=== PATIENT | male | born 1955 | race Caucasian/White ===

== ENCOUNTER 2019-05-15 09:26 | Outpatient (RCR) | payer BC, SELFPAY ==
[2019-05-15 09:49] LABS: Prothrombin Time 21.2 Seconds (9.64-11.0)
== END 2019-08-13 23:59 | disposition home or self-care (01) ==
LOC: CHSLAB 09:26
PROVIDERS: Visit Provider Family Medicine
DX: Z79.01 Long term (current) use of anticoagulants (principal)
CPT/HCPCS: 36415; 85610

== ENCOUNTER 2021-12-21 16:03 | Observation (INO) | payer MEDICARE, SELFPAY ==
--- NOTE | ~2021-12-21 | XR_ITS ---
EXAM: XR tibia fibula LT 2V DATE: 12/21/2021 18:34 HISTORY: LE ulcerations swelling. hx aneurysm to lt leg. . COMPARISON: 01/11/2018. FINDINGS: Medial vascular clips. Decreased Mineralization. No fracture or dislocation. No lytic or b lastic lesion. Joint spaces are maintained. No erosion or periosteal change. Diffuse subcutaneous masoud ma. Anterolateral soft tissue ulceration over the distal tibia/fibula. IMPRESSION: No acute osseous finding in the left tibia or fibula. Reviewed, dictated and finalized at location K.
--- NOTE | ~2021-12-21 | US_ITS ---
EXAMINATION: US arterial duplex LE DATE: 12/22/2021 15:28 INDICATION: Peripheral arterial disease. TECHNIQUE: Multiple grayscale and Doppler ultrasound images of the lower limb arteries were obtained. COMPARISON: CTA 10/26/2017 FINDINGS: Peak systolic velocity is 66 cm/s in right common femoral artery and 46 cm/s in profunda fe jody artery. There is total occlusion of right superficial femoral artery with reconstitution. Peak systolic velocity is 48 cm/s in popliteal artery, 46 cm/s in posterior tibial artery, and 40 cm/s in peroneal artery. There is no visible flow in dorsalis pedis. Peak systolic velocity is 80 cm/s in left common femoral artery, 84 cm/s in profunda femoris artery, 65 cm/s in superficial femoral artery, 59 cm/s in the bypass graft, and 69 cm/s in popliteal artery. There is flow in left posterior tibial artery and peroneal artery, but velocities are not accurately measured with angle correction. IMPRESSION: 1. Total occlusion of right superficial femoral artery with reconstitution. 2. Total occlusion of right dorsalis pedis. 3. Patent bypass graft in left lower limb. 4. Consider CTA given the limitations of ultrasound and the surgical change. Reviewed, dictated and finalized at location A.
--- NOTE | ~2021-12-21 | US_ITS ---
EXAMINATION: US venous doppler [facility] DATE: 12/22/2021 10:48 INDICATION: Lower limb edema. TECHNIQUE: Grayscale ultrasound images without and with compression and Doppler ultrasound images of the bilateral lower extremity veins were obtained. COMPARISON: Ultrasound 07/26/2015 FINDINGS: The visualized portions of right common femoral vein, profunda (deep) femoral vein, popliteal vein, p eroneal veins, posterior tibial veins, and greater saphenous vein outflow are patent. There is nonocc lusive thrombus in the right femoral vein. The visualized portions of left common femoral vein, profunda femoral vein, popliteal vein, peroneal veins, and posterior tibial veins are patent. There is nonocclusive thrombus in the left femoral vein . IMPRESSION: 1. Deep vein thrombosis involving the bilateral femoral veins. Reviewed, dictated and finalized at location A.
--- NOTE | ~2021-12-21 | CT_ITS ---
EXAMINATION: CTA abd aorta runoff DATE: 12/23/2021 13:22 INDICATION: Peripheral arterial disease. TECHNIQUE: Computed tomographic angiography (CTA) of the abdominal, pelvis, and both lower extremitie s was performed with 150 mL Omnipaque-350 intravenous contrast. Automated exposure control and iterat sathya reconstruction technique were employed. The dose-length product was 1809.23 mGy-cm. Maximum inten sity projection 3D-reconstructions of the arteries were created by the technologist on a separate wor kstation. COMPARISON: CTA 10/26/2017 FINDINGS: ABDOMINAL AORTA AND ITS BRANCHES: There is mild aortic atherosclerosis. No aortic aneurysm. There is no significant stenosis of celiac axis, superior mesenteric artery, the renal arteries, or inferior mesenteric artery. PELVIC VASCULATURE: There is no significant stenosis of the common iliac arteries, external iliac arteries, or internal i liac arteries. RIGHT LOWER EXTREMITY VASCULATURE: There is no significant stenosis of right common femoral artery. There is total occlusion of right chisholm perficial femoral artery at its origin with reconstitution of flow in above-knee popliteal artery. Th ere is no significant stenosis of the profunda femoris. 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 There is total occlusion of anterior tibial leia ry proximally with distal reconstitution. There is no significant stenosis of tibioperoneal trunk, po sterior tibial artery, or peroneal artery. LEFT LOWER EXTREMITY VASCULATURE: There is no significant stenosis of left common femoral artery. There is a patent graft from common f emoral artery to profunda femoral artery. There is total occlusion of left superficial femoral artery with reconstitution of flow in the below-knee popliteal artery. There is no significant stenosis of tibioperoneal trunk, anterior tibial artery, or the peroneal artery. There is total occlusion of prox imal posterior tibial artery with reconstitution of flow beyond the ankle. ADDITIONAL FINDINGS: The visualized portions of the lung bases demonstrate mild atelectasis. No pleural effusion. The hear t size is normal. No pericardial effusion. The liver is normal. There is a gallstone in the gallbladd er, which is normal in size. The spleen, pancreas, and adrenal glands are normal. There are cysts in the kidneys measuring up to 12 mm on the left. There is an 11 mm stone in left kidney. There is a lef t inguinal hernia containing nonobstructed sigmoid colon. There are no dilated loops of bowel. The ap pendix is normal. The prostate is mildly enlarged. There is a filter in the infrarenal inferior vena cava. There are no pathologically enlarged lymph nodes. There is no free intraperitoneal fluid. There is severe lumbar spondylosis. IMPRESSION: 1. Total occlusion of right superficial femoral artery with reconstitution of flow in above-knee pop liteal artery. 2. Total occlusion of right anterior tibial artery proximally with distal reconstitution. 3. Total occlusion of left superficial femoral artery with reconstitution of flow in below-knee popli teal artery. 4. Total occlusion of left posterior tibial artery proximally with reconstitution of flow beyond the ankle. 5. Left inguinal hernia containing nonobstructed sigmoid colon. Reviewed, dictated and finalized at location A. IMPRESSION: 1. Total occlusion of right superficial femoral artery with reconstitution of flow in above-knee popliteal artery. 2. Total occlusion of right anterior tibial artery proximally with distal recon stitution. 3. Total occlusion of left superficial femoral artery with reconstitution of fl ow in below-knee popliteal artery. 4. Total occlusion of left posterior tibial
[2021-12-21 16:12] VITALS: PULSE 88; RESP 16; TEMP 37; O2SAT 95
[2021-12-21 18:04] VITALS: BP 143/96; PULSE 88; RESP 18; O2SAT 99
[2021-12-21 19:31] LABS: Basophils Percent Auto 0.6 % (0.2-1.2); Eosinophils Percent Auto 0.3 % (0-4.4); Hematocrit 46.6 % (42.0-52.0); Hemoglobin 15.3 g/dL (14.0-18.0); Immature Granulocyte Absolute 0.03 K/mm3 (0.00-0.031); Immature Granulocyte Percent A 0.5 % (0-0.5); Lymphocytes Absolute Auto 1.11 K/mm3 (0.9-3.2); Lymphocytes Percent Auto 17.5 % (18.3-44.2); Mean Corpuscular HGB Conc 32.8 g/dl (32-36); Mean Corpuscular Hemoglobin 31.5 pg (26-34); Mean Corpuscular Volume 96.1 fl (80-100); Mean Platelet Volume 8.7 fl (7.4-10.4); Monocytes Absolute Auto 0.7 K/mm3 (0.1-0.6); Monocytes Percent Auto 11.1 % (2.6-8.5); Neutrophils Absolute Auto 4.4 K/mm3 (1.3-6.7); Platelet Count Result 263 k/mm3 (150-375); Red Blood Count 4.85 M/mm3 (4.6-6.20); Red Cell Distribution Width 13.8 % (11.5-14.5); White Blood Count 6.3 K/mm3 (4.5-10.0)
[2021-12-21 19:45] LABS: INR 1.1; Prothrombin Time 13.6 Seconds (11.1-14.7)
[2021-12-21 19:46] LABS: Partial Thromboplastin Time 26.8 SECONDS (22.3-36.8)
[2021-12-21 19:49] LABS: Alanine Aminotransferase 16 U/L (6-50); Albumin Level 4.9 g/dL (3.5-5.1); Alkaline Phosphatase 71 U/L (38-126); Anion Gap 14 mmol/L (8-16); Aspartate Amino Transferase 34 U/L (17-59); Bilirubin,Total 1.6 mg/dL (0.2-1.3); Blood Urea Nitrogen 19 mg/dL (9-20); Calcium 10.1 mg/dL (8.4-10.2); Carbon Dioxide 23 mmol/L (22-30); Chloride 98 mmol/L (98-107); Estimated CRCL calculation 75 ml/min; Estimated Glomerular Filt Rate > 60; Glucose 90 mg/dL (65-110); Potassium 3.8 mmol/L (3.4-5.0); Sodium 135 mmol/L (137-145)
[2021-12-21 19:53] LABS: CRP 0.8 mg/dL (<1.0)
--- NOTE | 2021-12-21 20:00 | ED.GENADULT ---
HPI - General Adult General Chief complaint: Unspecified Stated complaint: mult c/o Time Seen by Provider: 12/21/21 17:57 History of Present Illness HPI narrative: This is a 66-year-old male complaint coming to the ED with A chief complaint of left leg swelling and weakness. Patient has a history of a DVT and factor 5 Leiden. He has not taken his warfarin and about a week and half. Patient has noticed increased swelling of his left calf. He is no longer able to ambulate due to weakness in the leg. Because of this he has not been able to get out of bed and has urinated on himself. His family became concerned because he has not been himself. The patient himself notes some weakness of the leg but has no other complaints at this time. In the triage note states the patient had some slurred speech yesterday. However family states his speech is not slurred at this time. Related Data Allergies Allergy/AdvReac Type Severity Reaction Status Date / Time No Known Allergies Allergy Verified 12/21/21 16:23 Review of Systems Review of Systems: CONSTITUTIONAL: Denies night sweats. EYES: No eye pain ENT: Denies rhinorrhea CARDIOVASCULAR: Denies palpitations RESPIRATORY: Denies hemoptysis GASTROINTESTINAL: Denies hematemesis GENITOURINARY: Denies hematuria. SKIN: Denies rash MUSCULOSKELETAL: Denies myalgia. NEUROLOGIC: Denies weakness. 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 Head atraumatic. EYES: PERRLA/EOMI, NOSE: Normal no drainage NECK: Supple, Trachea midline RESPIRATORY: CTAB, No increased work of breathing. CARDIOVASCULAR: S1S2 appreciated ABDOMINAL: Soft, nontender, nondistended, MUSCULOSKELETAl: Left lower extremity is significantly swollen, there is a large surgical scar over the anterior medial portion of the lower extremity. Patient is able to wiggle his toes and sensation light touch is intact. Cap refills less than 2 seconds. NEURO: Alert. Cranial nerves 2-12 grossly intact. Sensation light touch, motor function cerebellar function intact for 4 extremities. Gait exam was normal. SKIN:: Multiple ulcerations over the left lower extremity with granulation tissue. There is no surrounding erythema or edema or fluctuance. PSYCHIATRIC: Normal affect Course Vital Signs Vital signs: Vital Signs Temperature 98.6 F 12/21/21 16:12 Pulse Rate 88 12/21/21 16:12 Respiratory Rate 16 12/21/21 16:12 Pulse Oximetry 95 12/21/21 16:12 Oxygen Delivery Room Air 12/21/21 16:12 Temperature 98.6 F 12/21/21 16:12 Pulse Rate 86 12/21/21 20:16 Respiratory Rate 18 12/21/21 20:16 Blood Pressure 138/80 12/21/21 20:16 Pulse Oximetry 99 12/21/21 20:16 Oxygen Delivery Room Air 12/21/21 16:12 Medical Decision Making [facility] Narrative Medical decision making narrative: This is a 66-year-old male presenting to the ED with increased swelling and weakness in his left lower extremity. Patient has not be
[2021-12-21 20:16] VITALS: BP 138/80; PULSE 86; RESP 18; O2SAT 99
[2021-12-21 21:32] LABS: Appearance Urine Clear (Clear); Bilirubin Urine 1+ (Negative); Blood Urine Negative (Negative); Color Urine Yellow (Yellow); Glucose Urine UA Negative (Negative); Ketones Urine 1+ mg/dL (Negative); Leukocyte Esterase Ur Negative LEU/UL (Negative); Nitrate Urine Negative (Negative); Protein Urine 1+ mg/dL (Negative); Specific Grav Ur 1.025 (1.001-1.035); Urobilinogen Urine 0.2 mg/dL (<2.0)
--- NOTE | 2021-12-21 21:35 | ECG_ITS ---
Measurements Intervals [place] Rate: 77 P: 73 DE: 139 QRS: 13 QRSD: 97 T: 29 QT: 365 QTc: 413 Interpretive Statements PROBABLE SINUS RHYTHM BASELINE ARTIFACT NONSPECIFIC T-WAVE FLATTENING NO PREVIOUS ECG AVAILABLE FOR COMPARISON Electronically Signed On 12-22-2021 18:14:00 CDT by Sharlene Still M.D.
[2021-12-21 21:39] LABS: RBC Urine 0-2 /hpf (0-2); Squamous Epithelial Cell Urine Rare /hpf (Few); WBC Urine 0-3 /hpf
[2021-12-21 21:40] LABS: Add Urine Microscopic? YES
[2021-12-21] MEDS: MUPIROCIN 2% OINT 22 GM TUBE 1 APPLIC TOPICAL (21:51)
[2021-12-21] MEDS: ENOXAPARIN 120 MG/0.8 ML SYRINGE 110 MG SUB-Q (22:24)
--- NOTE | 2021-12-21 23:10 | PM.IMHP ---
H&P: HPI History of Present Illness Date/Time: 12/21/21 23:10 Chief Complaint: left lower extremity swelling Narrative: This is a 66-year-old male with past medical history significant for factor Leiden deficiency, history of DVT, peripheral vascular disease, hypertension, dyslipidemia. Patient presents to the emergency room due to left lower extremity swelling that started 2 days ago tenderness as well and difficulty bearing weight on it, patient had stopped taking his Coumadin. Preliminary workup was significant for acute deep vein thrombosis found. patient denies any hemoptysis, chest pain, shortness of breath, cough, fevers, chills, rigors. patient is been admitted for further evaluation management and treatment. Review of Systems Review of Systems: Left lower extremity swelling Constitutional: Constitutional: Denies chills, Denies fever(s), Denies malaise, Denies night sweats and Denies weakness Eyes: Eyes: Denies change in vision ENT: Denies dysphagia, Denies vertigo, Denies dizziness and Denies odynophagia Cardiovascular: Cardiovascular: Denies chest pain, Denies syncope, Denies irregular heart rhythm, Denies lightheadedness, Denies palpitations and Denies dyspnea on exertion Respiratory: Respiratory: Denies cough, Denies hemoptysis, Denies pain on inspiration, Denies pain with cough and Denies dyspnea Gastrointestinal: Gastrointestinal: Denies abdominal pain, Denies dyspepsia, Denies heartburn, Denies nausea and Denies vomiting Genitourinary: Genitourinary: Denies dysuria Musculoskeletal: Musculoskeletal: Denies back pain, Denies myalgias and Reports other ( left lower extremity swelling) Integumentary/Breasts: Skin/Breast: Denies rash Neurologic: Denies vertigo, Denies dizziness, Denies syncope, Denies focal weakness and Denies Sensory deficit (Neuro) Psychiatric: Psychiatric: Reports no additional psychiatric complaints and Reports as per HPI Endocrine: Endocrine: Denies cold intolerance, Denies fatigue, Denies flushing, Denies heat intolerance, Denies polyphagia and Denies polydipsia Hematologic/Lymphatic: Hematologic/Lymphatic: Reports no additional hematologic/lymphatic complaints and Reports as per HPI Allergic/Immunologic: Allergic/Immunologic: Reports no additional allergic/immunologic complaints and Reports as per HPI [facility] Past Medical History Medical History (Updated 12/21/21 @ 22:14 by Adam Henriquez MD) Aneurysm of left leg Blood clot in vein BMI 33.0-33.9,adult 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 Peripheral vascular disease Surgical History Surgical History Hx of vascular surgery Family History Family History Sibling COVID Sibling Breast cancer Social History Social History Smoking packs per day: 0.5 Smoking cigarettes per day: 10.0 Years smoked: 30 Smoking pack-years: 15.00 Tobacco type: cigarettes Alcohol intake: current Alcohol use details: beer Gender identity (if verbalized by the patient): Male Sexual Orientation (if Verbalized by the Patient): Straight or Heterosexual Spiritual care concerns: No Agree to blood products: Yes Meds Home Medications and Allergies Home Medications Medication Instructions Recorded Confirmed Type losartan 50 mg-hydrochlorothiazide 1 tablet PO DAILY #90 tabs 06/08/21 07/12/21 Rx 12.5 mg tablet atorvastatin 20 mg tablet 20 mg PO HS 12/22/21 12/22/21 History Allergies Allergy/AdvReac Type Severity Reaction Status Date / Time No Known Allergies Allergy Verified 12/21/21 16:23 Vital Signs Vital Signs - 24 hr 12/21/21 16:12 12/21/21 18:04 12/21/21 20:16 Temperature 98.6 F Pulse Rate 88 88 86 Respiratory Rate 16 18 18 Blood Pressure 143/96 H 138/80 Pulse Oximetry 95 99 99 Oxygen Delivery Room Air
[2021-12-21 23:38] VITALS: BP 152/102; PULSE 80; RESP 20; O2SAT 95
[2021-12-21 23:50] VITALS: BP 130/85; PULSE 86; RESP 18; TEMP 37; O2SAT 98; BMI 30.8
--- NOTE | 2021-12-22 | ECHO_ITS ---
Patient Info Name: Ramy Dailey Age: 66 years : 1955 Gender: Male Ht: 73 in Wt: 233 lbs BSA: 2.36 m2 HR: 57 bpm BP: 130 / 85 mmHg Heart Rhythm: Sinus Rhythm Technical Quality: Poor Exam Date: 12/22/2021 11:34 AM Exam Location: [facility] Pulmonary Exam Room: 302 Patient Status: Outpatient Admit Date: 12/21/2021 Staff Ordering Physician: Barbie Calzada MD Payroll Professional: Jaimee Cardozo RDCS Attending Provider: Barbie Calzada MD Referring Physician: Zheng PAYTON; Exam Type: CA echo dop color flow w con Study Info Indications - DVT Complete two-dimensional, color flow and Doppler transthoracic echocardiogram is performed with contrast to opacify the left ventricle and to improve the deliniation of the left ventricle endocardial borders. Contrast/Agitated Saline Contrast/Ag. Saline: Definity Amount: --- ml Administered By: Jaimee Cardozo [facility] Existing IV Access: Yes Reason for Poor Study: patient body habitus Summary 1. Grossly normal left ventricular size and thickness with good contractility of all segments. Ejection fraction is 55-60%. Grade 1 diastolic dysfunction is present. 2. Left atrial chamber dimension is mildly enlarged. 3. No significant valve disease. 4. Normal sinus rhythm. 5. Technically difficult study; definity echo contrast used. Left Ventricle Left ventricular chamber dimension is normal. Left ventricular systolic function is normal, estimated at 55-60%. There is no increased left ventricular wall thickness. Left ventricular septal wall motion is normal. The left ventricular diastolic function is grade I diastolic dysfunction. Right Ventricle Right ventricular chamber dimension is normal. Right ventricular systolic function is normal. Left Atria Left atrial chamber dimension is mildly enlarged. Right Atria Right atrial chamber dimension is normal. Aortic Valve The aortic valve is trileaflet. There is no aortic valve sclerosis. There is no aortic valve stenosis. There is no aortic valve regurgitation. Pulmonic Valve The pulmonic valve is normal. There is no pulmonic valve stenosis. There is no pulmonic regurgitation. Mitral Valve The mitral valve has normal leaflets. There is no mitral valve stenosis. There is no mitral valve regurgitation. Tricuspid Valve The tricuspid valve leaflets are normal. There is no significant tricuspid valve stenosis. There is no tricuspid valve regurgitation. No pulmonary hypertension, estimated pulmonary arterial systolic pressure is Empty. Pericardium/Pleural The pericardium appears normal. There is no pericardial effusion. Inferior Vena Cava Not well visualized inferior vena cava with >50% collapse upon inspiration consistent with Empty right atrial pressure, Empty. Aorta The aortic root size at the sinus of Valsalva is normal. The prox ascending aorta size is normal. The abdominal aorta size is not well visualized. Left Ventricular Outflow Tract Name Value Normal LVOT 2D LVOT Diameter 2.11 cm LVOT Doppler LVOT
--- NOTE | 2021-12-22 00:30 | ADMGEN ---
This patient, Ramy Dailey, was admitted to 3 [facility] Surg Room 302-01. Patient/family oriented to hospital policies and general routines including ID bracelet, bed and alarms, visiting hours, pain management, procedures, bathroom and other care routines, personal items, smoking policy, room service/diet, and visiting hours. Information on how to activate the Rapid Response Team has been discussed. Patient/Family are encouraged to report perceived risks to care and to ask questions if they do not understand what they are told or what they should do.
[2021-12-22] MEDS: ATORVASTATIN 20 MG TABLET PO ×2 (04:28→20:29)
[2021-12-22 05:39] VITALS: BP 130/85; PULSE 73; RESP 18; TEMP 37; O2SAT 98
[2021-12-22] MEDS: LOSARTAN POTASSIUM 50 MG TABLET PO (08:37)
[2021-12-22] MEDS: hydroCHLOROthiazide 12.5 MG CAPSULE PO (08:37)
[2021-12-22] MEDS: SILVERGEL (ELTA) 45 ML 1 APPLIC TOPICAL (09:30)
[2021-12-22] MEDS: ENOXAPARIN 120 MG/0.8 ML SYRINGE 110 MG SUB-Q ×2 (09:30→20:30)
[2021-12-22] MEDS: PERFLUTREN LIPID MICROSPHERES 1.5 ML VIAL DILUTED TO 10 ML TOTAL VOLUME IV PUSH (11:30)
--- NOTE | 2021-12-22 13:32 | PM.IMPN ---
Progress Note: A&P Assessment and Plan (1) DVT (deep venous thrombosis): Code(s): I82.409 - Acute embolism and thrombosis of unspecified deep veins of unspecified lower extremity Status: Acute Assessment and Plan: Venous duplex with bilateral non-occlusive bilateral femoral vein DVTs. Patient continued on lovenox 1 mg/kg SQ BID. Will transition to oral Eliquis 10 mg PO x7 days then 5 mg BID as patient is agreeable to changing from warfarin. Care coordination pricing Eliqus. echocardiogram completed and pending. Patient with prior IVC filter placement approximately 15 years ago per family. (2) Peripheral vascular disease: Code(s): I73.9 - Peripheral vascular disease, unspecified Status: Acute Assessment and Plan: 2 arterial wounds noted with diminished pulses and prior angiography/bypass. Patient has been off warfarin for a few weeks. Arterial duplex with total occlusive right superficial femoral artery with reconstitution, total occlusion of right dorsalis pedis, patent bypass graft. Will check CTA LE to evaluate stent patency. (3) Generalized weakness: Code(s): R53.1 - Weakness Status: Acute Assessment and Plan: Consult PT/OT for evaluation. Patient lives alone. He has been undergoing outpatient PT for 30 sessions, but does not think he has been improving. c/o paresthesia BLE. Check TSH and B12 levels. 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 Will start Eliquis prior to discharge. (5) Hypertension: Code(s): I10 - Essential (primary) hypertension Status: Chronic Assessment and Plan: Continue losartan-HCTZ at home dose. Monitor BP Plan CODE STATUS: FULL CODE Disposition: home. Possible home health needs. Time Spent With Patient Time with patient: 15 - 25 minutes Subjective Date/time seen: 12/22/21 13:32 Interval history: Patient is 66 yo male with medical history of Factor 5 Leiden disease, PVD s/p angiography and bypass, as well as prior h/o DVTs. He presented to the ED for evaluation of BLE leg weakness, pain, redness and worsening swelling. He reported forgetting to take his warfarin for several weeks. Patient found resting in bed. He reports persistent weakness and tingling to BLE. His daughter is at bedside and reports his BLE redness and swelling are improved. No chest pain, SOB, or palpitations. He is afebrile. Patient lives alone and is eager to get back to his usual level of function. Review of Systems Review of Systems: All systems reviewed & are unremarkable except as noted in HPI and below Exam Narrative: General: No acute distress.? Well-developed and well-nourished older adult male sitting up in bed. Mental Status/Psych: Awake, AOx4. clear speech. Neutral mood and affect. Pleasant and cooperative. Skin: Skin fair, warm, and dry without rashes or lesions. LLE anterior garcia with 1.5 cm x1.5 cm x 0.3 cm ulceration with yellow/brown eschar, surrounding skin with moderate edema and normothermic to touch. Left lateral calf, superior to lateral malleolus 0.4 cm x 0.3 cm x 0.2 cm ulcer with yellow slough, no drainage noted. HEENT: Normocephalic. Sclera is non-icteric. EOM intact. PERRL Oral mucosa pink and moist. Hearing grossly normal. Tongue midline. Neck: Supple. No JVD. Heart: S1 and S2 regular rate and rhythm. No murmurs, gallops, or rubs auscultated. Chest: Respirations even and unlabored. Lung sounds are clear to auscultation in all lobes bilaterally without wheezes, rhonchi, or rales. Abdomen: Soft, round and non-tender to palpation.? Bowel sounds present in all 4 quadrants. No guarding or grimacing. Extremities:?? Grossly normal ROM all extremities. +1 edema BLE. Radial pulses +2 bilaterally and dorsalis pedis p
[2021-12-22 14:00] VITALS: BP 104/68; PULSE 66; RESP 20; TEMP 36.3; O2SAT 94
--- NOTE | 2021-12-22 14:31 | PCOTNOTE ---
Attempted to see pt. for occupational therapy evaluation. Pt. will best benefit from therapy services provided at least 24 hours after continuation of medications to reduce clotting. Pt. being taken from room at this time for testing. Will follow.
[2021-12-22 20:52] VITALS: BP 90/58; PULSE 62; RESP 18; TEMP 37.1; O2SAT 94
[2021-12-22 21:50] VITALS: BP 130/69; PULSE 61; RESP 18; TEMP 36.9; O2SAT 96
[2021-12-23 05:24] VITALS: BP 117/79; PULSE 60; RESP 20; TEMP 37; O2SAT 100
[2021-12-23 06:21] LABS: Hematocrit 43.4 % (42.0-52.0); Mean Corpuscular HGB Conc 32.3 g/dl (32-36); Mean Corpuscular Hemoglobin 31.9 pg (26-34); Mean Corpuscular Volume 98.9 fl (80-100); Mean Platelet Volume 9.3 fl (7.4-10.4); Platelet Count Result 235 k/mm3 (150-375); Red Blood Count 4.39 M/mm3 (4.6-6.20); Red Cell Distribution Width 14.1 % (11.5-14.5)
[2021-12-23 06:29] LABS: INR 1.1; Prothrombin Time 14.2 Seconds (11.1-14.7)
[2021-12-23 06:30] LABS: Partial Thromboplastin Time 37.8 SECONDS (22.3-36.8)
[2021-12-23 06:34] LABS: Anion Gap 9 mmol/L (8-16); Blood Urea Nitrogen 17 mg/dL (9-20); Calcium 9.4 mg/dL (8.4-10.2); Carbon Dioxide 27 mmol/L (22-30); Chloride 101 mmol/L (98-107); Estimated CRCL calculation 82 ml/min; Estimated Glomerular Filt Rate > 60; Glucose 98 mg/dL (65-110); Potassium 3.4 mmol/L (3.4-5.0); Sodium 137 mmol/L (137-145)
[2021-12-23 07:38] LABS: Folic Acid 5.9 ng/mL (2.76->20)
[2021-12-23] MEDS: SILVERGEL (ELTA) 45 ML 1 APPLIC TOPICAL (08:32)
[2021-12-23] MEDS: hydroCHLOROthiazide 12.5 MG CAPSULE PO (08:32)
[2021-12-23] MEDS: LOSARTAN POTASSIUM 50 MG TABLET PO (08:32)
[2021-12-23 08:33] VITALS: O2SAT 95
[2021-12-23] MEDS: APIXABAN 5 MG TABLET 10 MG PO (09:55)
[2021-12-23 14:00] VITALS: BP 103/68; PULSE 65; RESP 20; O2SAT 98
--- NOTE | 2021-12-23 14:05 | PM.DS ---
DS: Admitting Diagnosis Discharge Date 12/23/2021 1406 Admitting Diagnosis DVT H/O Factor five Leiden deficiency DS: Discharge Diagnosis Discharge Diagnosis (1) DVT (deep venous thrombosis): Code(s): I82.409 - Acute embolism and thrombosis of unspecified deep veins of unspecified lower extremity Status: Acute (2) Peripheral vascular disease: Code(s): I73.9 - Peripheral vascular disease, unspecified Status: Acute Assessment and Plan: with chronic arterial wounds. 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 Hospital Course: Ramy Dailey is a 66-year-old male with past medical history significant for factor 5 Leiden deficiency, history of DVT, peripheral vascular disease, hypertension, dyslipidemia.? Patient presents to the emergency room due to left lower extremity swelling that started 2 days prior to admission. He endorsed LE tenderness, as well, with difficulty bearing weight. The patient reported that he was behind on his refill of warfarin and then forgot to resume his blood thinner. He thinks it had been several weeks since he has taken it. His INR was 1.1 on admission. Vitals were stable in ED and he denied hemoptysis, chest pain, shortness of breath, cough, fevers, chills, rigors. Patient was referred for observation. He was treated with Lovenox 1 mg/kg BID. Venous duplex BLE showed bilateral DVT, non-occlusive to the femoral veins. He was transitioned to oral Eliquis 10 mg BID x 7 days (on 12/22/21) and then 5 mg PO BID following for VTE treatment. Echocardiogram did not show RV strain. Care coordination did wylie Eliquis medication prior to discharge and the patient was agreeable to anticoagulation changing. Additionally, the patient was noted to have 2 LLe arterial wounds noted with diminished pulses and history prior angiography/bypass. ARterial duplex was inconclusive and CTA BLE showed patent tents and grafts. PT and OT were consulted and the patient had improved activity tolerance. The patient did not want SNF rehab or home health when discussed. He wanted to continue outpatient PT as already ordered. TSH and B12 levels were checked for paresthesia and were within normal limits. Patient was discharged home with family on Eliquis. He was hemodynamically stable and did not require supplemental O2. Patient was instructed to follow up with Dr. Villegas for wound care. He was evaluated by Wound Care at our facility. Silver gel and mepilex were ordered and continued on discharge. Status at Discharge Cognitive/behavioral status at discharge: AAOx4, pleasant, forgetful. Functional status at discharge: uses cane/walker Overall status at discharge: patient is progressing back to baseline Time Spent with Patient Time attestation: Total time spent providing and/or coordinating discharge services: Time spent: Greater than 30 minutes Exam Narrative: General: No acute distress.? Sitting up in the chair. Mental Status/Psych: Awake, AOx4. clear speech. Neutral mood and affect. Cooperative. Skin: Skin fair, warm, and dry without rashes or lesions. LLE anterior garcia wound x2 with small yellow slough and noted granulation tissue. Hemosideran staining BLE, LLE > RLE. HEENT: Normocephalic. Sclera is non-icteric. Pupils equal and round. Oral mucosa moist. Neck: No JVD. Heart: S1 and S2 regular rate and rhythm. No murmurs, gallops, or rubs auscultated. Chest: RR unlabored at rest. Lung sounds are clear to auscultation in all lobes bilaterally without wheezes, rhonchi, or rales. Abdomen: Soft, round and non-tender to palpation.? Bowel sounds present in all 4 quadrants. No guarding or
== END 2021-12-23 18:45 | disposition home health service (06) ==
LOC: ANHED 22:02 → ANH3MEDSUR 12-22 01:28
PROVIDERS: Admitting Provider Internal Medicine; Emergency Provider Emergency Medicine; PCP Family Medicine; Visit Provider Nurse Practitioner Family
DX: I82.413 Acute embolism and thrombosis of femoral vein, bilateral (principal); D68.51 Activated protein C resistance; I73.9 Peripheral vascular disease, unspecified; I10 Essential (primary) hypertension; E78.5 Hyperlipidemia, unspecified; F17.210 Nicotine dependence, cigarettes, uncomplicated; Z86.718 Personal history of other venous thrombosis and embolism; Z79.01 Long term (current) use of anticoagulants
CPT/HCPCS: 36415; 51701; 73590; 75635; 80048; 80053; 81001; 82607; 82746; 84443; 85025; 85027; 85610; 85730; 86140; 93005; 93925; 93970; 96372; 96374; 97161; 97166; 97530; 97535; 99285; A9270; C8929; G0378; J1650; Q9957; Q9967

== ENCOUNTER 2022-01-29 19:04 | Inpatient (IN) | payer MEDICARE, SELFPAY ==
[2022-01-29] VITALS (14 sets, daily range): BP systolic 92–130; BP diastolic 59–99; PULSE 79–89; RESP 14–21; TEMP 36.3; O2SAT 96–100
--- NOTE | ~2022-01-29 | CT_ITS ---
EXAMINATION: CT brain wo con DATE: 01/30/2022 08:38 INDICATION: Expressive aphasia. TECHNIQUE: Computed tomography (CT) of the head was performed without intravenous contrast. The mA wa s adjusted according to patient size. Iterative reconstruction technique was employed. The dose-lengt h product was 605.33 mGy-cm. COMPARISON: None FINDINGS: There are scattered areas of low attenuation in the cerebral white matter. There is no intr acranial hemorrhage, acute infarction, or abnormal intracranial mass lesion. The ventricles are key l in size. There is extensive mucosal thickening in the paranasal sinuses with sclerosis of the sinus dawson, consistent with chronic sinusitis. The mastoid air cells are normal. There are likely changes of ocular lens replacement surgeries. IMPRESSION: 1. Mild nonspecific cerebral white matter disease, which likely represents chronic small vessel ische eliz disease. 2. Chronic sinusitis. Reviewed, dictated and finalized at location A. IMPRESSION: 1. Mild nonspecific cerebral white matter disease, which likely represents canvas baster jumpbasting jose small vessel ischemic disease. 2. Chronic sinusitis.
--- NOTE | 2022-01-29 19:40 | ED.WEAKNESS ---
HPI - Weakness General Chief complaint: Weakness Stated complaint: Unknown Time Seen by Provider: 01/29/22 19:26 History of Present Illness HPI Narrative: Patient is a 66-year-old male with a history of DVT on Eliquis, PVD, hypertension, hyperlipidemia presenting with generalized weakness. Patient states that he lives alone and he tripped on a walker earlier this afternoon. He did not strike his head or lose consciousness. He tried to get up but he was too weak so he stayed on the floor and then fell asleep. His sister came over and found him on the floor so she called EMS. Patient states that he has been having some right hip pain for the last several days as well. Currently, he states that he feels fine. He denies lightheadedness, headache, chest pain, shortness of breath, palpitations, abdominal pain, nausea or vomiting, diarrhea. States that he thinks that he has a UTI. Related Data Home Medications Medication Instructions Recorded Confirmed atorvastatin 20 mg tablet 20 mg PO HS 12/22/21 01/30/22 apixaban 5 mg tablet (Eliquis) 5 mg PO 2XD 01/30/22 01/30/22 Allergies Allergy/AdvReac Type Severity Reaction Status Date / Time No Known Allergies Allergy Verified 01/29/22 22:09 Review of Systems Review of Systems: All systems reviewed & are unremarkable except as noted in HPI and below PMFSH Past Medical History Medical History Adult BMI 31.0-31.9 kg/sq m Aneurysm of left leg Blood clot in vein BMI 33.0-33.9,adult 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 Peripheral vascular disease Surgical History Surgical History Hx of vascular surgery Family History Family History Sibling COVID Sibling Breast cancer Social History Social History (Updated 01/30/22 @ 00:39 by Catia Caro RN) Smoking packs per day: 0.5 Smoking cigarettes per day: 10.0 Years smoked: 30 Smoking pack-years: 15.00 Smoking status: Current every day smoker Tobacco type: cigarettes Alcohol intake: current Drinks per week: 12 Alcohol use details: beer Substance use: never Living arrangements: alone Occupation/Education: retired Gender identity (if verbalized by the patient): Male Sexual Orientation (if Verbalized by the Patient): Straight or Heterosexual Spiritual care concerns: No Agree to blood products: Yes Exam Narrative: GENERAL: Nontoxic and in no acute distress. HEAD: Normocephalic, atraumatic. EYES: PERRLA and EOMI. ENT: Nares clear, no rhinorrhea or epistaxis. Mucous membranes moist. NECK: Supple. CHEST: Clear to auscultation. No respiratory distress. HEART: Regular rate and rhythm. No murmur heard. Normal peripheral pulses. ABDOMEN: Soft, nontender, nondistended, normal active bowel sounds. EXTREMITIES: Normal range of motion. No edema. SKIN: healing wounds on lower left extremity, left leg is swollen, pulses 2+, brisk cap refill NEURO: No focal deficits. Alert and oriented x3. PSYCH: Normal mood and affect. Course Vital Signs Vital signs: Vital Signs Pulse Rate 88 01/29/22 19:14 Respiratory Rate 14 01/29/22 19:14 Blood Pressure 117/67 01/29/22 19:14 Pulse Oximetry 97 01/29/22 19:14 Oxygen Delivery Room Air 01/29/22 19:14 Temperature 98 F 02/02/22 05:21 Pulse Rate 63 02/02/22 05:21 Respiratory Rate 16 02/02/22 05:21 Blood Pressure 116/97 H 02/02/22 05:21 Pulse Oximetry 98 02/02/22 05:21 Oxygen Delivery Room Air 02/02/22 09:00 MDM - Weakness MDM Narrative Medical decision making narrative: Patient is a 66-year-old male with history as above presenting with generalized weakness. Vitals are within normal limits. Patient is nontoxic and in no acute distress. Exam is remarkable for the above. Work-up is concerning for rhabdomyolysis and UT
[2022-01-29] MEDS: SODIUM CHLORIDE 0.9% IV 1,000 ML 999 ML IV CONT ×2 (19:58→21:42)
[2022-01-29 20:20] LABS: Appearance Urine Slightly Cloudy (Clear); Bilirubin Urine Negative (Negative); Blood Urine 3+ (Negative); Color Urine Yellow (Yellow); Glucose Urine UA Negative (Negative); Ketones Urine 1+ mg/dL (Negative); Leukocyte Esterase Ur 3+ LEU/UL (Negative); Nitrate Urine Negative (Negative); Protein Urine 2+ mg/dL (Negative); Specific Grav Ur 1.025 (1.001-1.035); Urobilinogen Urine 0.2 mg/dL (<2.0)
[2022-01-29 20:26] LABS: Mucus Urine Rare /lpf; RBC Urine 21-50 /hpf (0-2); WBC Urine >75 /hpf
[2022-01-29 20:29] LABS: Add Urine Microscopic? YES
[2022-01-29 21:12] LABS: Basophils Percent Auto 0.5 % (0.2-1.2); Eosinophils Percent Auto 0.2 % (0-4.4); Hematocrit 40.9 % (42.0-52.0); Hemoglobin 13.6 g/dL (14.0-18.0); Immature Granulocyte Absolute 0.02 K/mm3 (0.00-0.031); Immature Granulocyte Percent A 0.2 % (0-0.5); Lymphocytes Absolute Auto 0.77 K/mm3 (0.9-3.2); Lymphocytes Percent Auto 9.1 % (18.3-44.2); Mean Corpuscular HGB Conc 33.3 g/dl (32-36); Mean Corpuscular Hemoglobin 32.2 pg (26-34); Mean Corpuscular Volume 96.7 fl (80-100); Mean Platelet Volume 9.1 fl (7.4-10.4); Monocytes Absolute Auto 0.9 K/mm3 (0.1-0.6); Monocytes Percent Auto 10.8 % (2.6-8.5); Neutrophils Absolute Auto 6.7 K/mm3 (1.3-6.7); Neutrophils Percent Auto 79.2 % (45.5-73.1); Platelet Count Result 281 k/mm3 (150-375); Red Blood Count 4.23 M/mm3 (4.6-6.20); Red Cell Distribution Width 13.8 % (11.5-14.5); White Blood Count 8.5 K/mm3 (4.5-10.0)
[2022-01-29 21:30] LABS: Alanine Aminotransferase 26 U/L (6-50); Albumin Level 4.5 g/dL (3.5-5.1); Alkaline Phosphatase 70 U/L (38-126); Anion Gap 15 mmol/L (8-16); Aspartate Amino Transferase 50 U/L (17-59); Bilirubin,Total 1.4 mg/dL (0.2-1.3); Blood Urea Nitrogen 25 mg/dL (9-20); Calcium 9.1 mg/dL (8.4-10.2); Carbon Dioxide 22 mmol/L (22-30); Chloride 104 mmol/L (98-107); Creatine Kinase 1468 U/L (55-170); Estimated CRCL calculation 82 ml/min; Estimated Glomerular Filt Rate > 60; Glucose 112 mg/dL (65-110); Potassium 3.4 mmol/L (3.4-5.0); Sodium 141 mmol/L (137-145)
[2022-01-29 22:58] LABS: SARS-CoV-2 RNA PCR Negative
[2022-01-30 00:20] VITALS: PULSE 76; RESP 8; TEMP 36.5
[2022-01-30 00:30] VITALS: BMI 32.5
--- NOTE | 2022-01-30 02:30 | PM.IMHP ---
H&P: HPI History of Present Illness Date/Time: 01/30/22 0230 Chief Complaint: Fall Narrative: Patient is 66-year-old male with a past medical history of DVT, PVD, hypertension, hyperlipidemia who presented to the ED after a fall. Patient stated that he was here about a month ago for DVT. He stated after he discharged that he has been very weak ever since. He stated that he was getting up and tripped on the walker and was unable to get off the floor. Patient stated that he fell sometime in the afternoon however he does not know how long he was on the floor but thinks it was anywhere from 3-7 hours. He denies hitting his head or losing consciousness. He also denies any chest pain, shortness of breath, nausea, vomiting, diarrhea, constipation, appetite changes, abdominal pain, headaches, dizziness, lightheadedness. Patient did state that he has been very tired lately he is very concerned about that. He also stated that the last day or two he has had multiple bouts of diarrhea, however, stated he has not currently experiencing this. CK is elevated 1468. UA does appear infectious. Patient is being admitted to the hospitalist service under observation Review of Systems Review of Systems: All systems reviewed & are unremarkable except as noted in HPI and below PMFSH Past Medical History Medical History Adult BMI 31.0-31.9 kg/sq m Aneurysm of left leg Blood clot in vein BMI 33.0-33.9,adult 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 Peripheral vascular disease Surgical History Surgical History Hx of vascular surgery Family History Family History Sibling COVID Sibling Breast cancer Social History Social History (Updated 01/30/22 @ 00:39 by Catia Caro RN) Smoking packs per day: 0.5 Smoking cigarettes per day: 10.0 Years smoked: 30 Smoking pack-years: 15.00 Smoking status: Current every day smoker Tobacco type: cigarettes Alcohol intake: current Drinks per week: 12 Alcohol use details: beer Substance use: never Living arrangements: alone Occupation/Education: retired Gender identity (if verbalized by the patient): Male Sexual Orientation (if Verbalized by the Patient): Straight or Heterosexual Spiritual care concerns: No Agree to blood products: Yes Meds Home Medications and Allergies Home Medications Medication Instructions Recorded Confirmed Type losartan 50 mg-hydrochlorothiazide 1 tablet PO DAILY #90 tabs 06/08/21 01/30/22 Rx 12.5 mg tablet atorvastatin 20 mg tablet 20 mg PO HS 12/22/21 01/30/22 History foam bandage 4 X 4 (Mepilex) #14 ea 12/23/21 01/30/22 Rx silver 200 mcg/gram topical gel 1 applic topical DAILY #90 grams 12/23/21 01/30/22 Rx (Silver-Sept) apixaban 5 mg tablet (Eliquis) 5 mg PO 2XD 01/30/22 01/30/22 History Allergies Allergy/AdvReac Type Severity Reaction Status Date / Time No Known Allergies Allergy Verified 01/29/22 22:09 Vital Signs Vital Signs - 24 hr 01/29/22 19:14 01/29/22 21:20 01/29/22 21:30 Temperature Pulse Rate 88 88 84 Respiratory Rate 14 16 19 Blood Pressure 117/67 102/62 111/61 Pulse Oximetry 97 100 98 Oxygen Delivery Room Air 01/29/22 21:00 01/29/22 21:45 01/29/22 22:00 Temperature Pulse Rate 80 87 85 Respiratory Rate 16 19 17 Blood Pressure 105/60 116/71 117/80 Pulse Oximetry 97 98 98 Oxygen Delivery 01/29/22 20:45 01/29/22 20:30 01/29/22 20:16 Temperature Pulse Rate 82 79 83 Respiratory Rate 16 21 H 17 Blood Pressure 115/68 92/59 L 102/67 Pulse Oximetry 97 97 97 Oxygen Delivery 01/29/22 20:00 01/29/22 19:45 01/29/22 19:30 Temperature Pulse Rate 88 85 84 Respiratory Rate 20 19 18 Blood Pressure 114/63 103/59 L 111/61 Pulse Oximetry 98 98 97 Oxygen Delivery
[2022-01-30 03:20] VITALS: BP 106/61; PULSE 76; RESP 18; TEMP 36.5; O2SAT 94
[2022-01-30 05:06] VITALS: BP 130/66; PULSE 85; RESP 20; TEMP 36.8; O2SAT 96
[2022-01-30 07:31] LABS: Basophils Absolute Auto 0.1 K/mm3 (0.0-0.1); Basophils Percent Auto 0.7 % (0.2-1.2); Eosinophils Absolute Auto 0.1 K/mm3 (0-0.3); Hematocrit 45.5 % (42.0-52.0); Hemoglobin 13.9 g/dL (14.0-18.0); Immature Granulocyte Absolute 0.05 K/mm3 (0.00-0.031); Immature Granulocyte Percent A 0.6 % (0-0.5); Lymphocytes Absolute Auto 0.89 K/mm3 (0.9-3.2); Lymphocytes Percent Auto 10.8 % (18.3-44.2); Mean Corpuscular HGB Conc 30.5 g/dl (32-36); Mean Corpuscular Hemoglobin 32.6 pg (26-34); Mean Corpuscular Volume 106.8 fl (80-100); Mean Platelet Volume 9.4 fl (7.4-10.4); Monocytes Absolute Auto 0.9 K/mm3 (0.1-0.6); Monocytes Percent Auto 10.6 % (2.6-8.5); Neutrophils Absolute Auto 6.3 K/mm3 (1.3-6.7); Neutrophils Percent Auto 76.3 % (45.5-73.1); Platelet Count Result 252 k/mm3 (150-375); Red Blood Count 4.26 M/mm3 (4.6-6.20); White Blood Count 8.2 K/mm3 (4.5-10.0)
[2022-01-30 07:42] LABS: Alanine Aminotransferase 32 U/L (6-50); Alkaline Phosphatase 73 U/L (38-126); Anion Gap 12 mmol/L (8-16); Aspartate Amino Transferase 81 U/L (17-59); Bilirubin,Total 1.2 mg/dL (0.2-1.3); Blood Urea Nitrogen 22 mg/dL (9-20); Calcium 8.9 mg/dL (8.4-10.2); Carbon Dioxide 19 mmol/L (22-30); Chloride 107 mmol/L (98-107); Estimated CRCL calculation 90 ml/min; Estimated Glomerular Filt Rate > 60; Glucose 108 mg/dL (65-110); Magnesium 2.1 mg/dL (1.6-2.3); Potassium 3.4 mmol/L (3.4-5.0); Sodium 138 mmol/L (137-145)
[2022-01-30 07:50] LABS: Creatine Kinase 2836 U/L (55-170)
[2022-01-30] MEDS: SODIUM CHLORIDE 0.9% IV 1,000 ML 125 ML IV CONT (10:01)
[2022-01-30] MEDS: APIXABAN 5 MG TABLET PO ×2 (10:02→17:06)
[2022-01-30 10:49] LABS: Folic Acid 5.8 ng/mL (2.76->20)
[2022-01-30 12:35] LABS: Creatine Kinase 2536 U/L (55-170)
[2022-01-30 12:59] LABS: Vitamin D 25 Hydroxy 23.8 ng/mL
[2022-01-30 14:00] VITALS: BP 116/81; PULSE 68; RESP 12; TEMP 36; O2SAT 97
--- NOTE | 2022-01-30 16:47 | P.PNIM_ITS ---
Progress Note: A&P Assessment and Plan (1) Fall: Code(s): W19.XXXA - Unspecified fall, initial encounter Status: Acute Assessment and Plan: * Fell over his walker; mechanical. He was recently discharged from home health services. * Was unable to get up * PT/OT * Vitamin D level 23.8, B12 543, folate 5.8, TSH 1.58 (12/23/21) - start Vit D3 1000 IU daily * Could of been exacerbated by possible UTI (2) Rhabdomyolysis: Code(s): M62.82 - Rhabdomyolysis Status: Acute Assessment and Plan: * CK elevated at 1468 to 2836 to 2536 * Continue NS@100 mL/hour. Monitor I/O and avoid hypervolemia. * Trend CK * Adjust therapy as indicated * Renal labs stable * Hold statin, HCTZ and losartan (3) Abnormal finding on urinalysis: Code(s): R82.90 - Unspecified abnormal findings in urine Status: Acute Assessment and Plan: * UA 3+ leukocytes, >75 WBC and bacteria noted. +dysuria. * Urine culture pending * Continue ceftriaxone 1 gram IV Q24 hours and adjust per culture results. * Trend urine output (4) Hypertension: Qualifiers: Hypertension type: primary hypertension Qualified Code(s): I10 - Essential (primary) hypertension Code(s): I10 - Essential (primary) hypertension Status: Chronic Assessment and Plan: * Current Blood pressure 106/61 * Hold home medications for now * Trend blood pressure * Adjust therapy as indicated (5) Hyperlipidemia: Qualifiers: Hyperlipidemia type: unspecified Qualified Code(s): E78.5 - Hyperlipidemia, unspecified Code(s): E78.5 - Hyperlipidemia, unspecified Status: Chronic Assessment and Plan: * Chronic, hold statin until rhabdomyolysis resolves. (6) Peripheral vascular disease: Code(s): I73.9 - Peripheral vascular disease, unspecified Status: Acute Assessment and Plan: * Left leg wound present which is chronic. * Wound consult * Hx of aneurysm in the left leg * No swelling noted Time Spent With Patient Time with patient: 15 - 25 minutes Subjective Date/time seen: 01/30/22 16:47 Interval history: Patient is a 66 yo male with medical history of factor V deficiency, DVT/PE, HTN, and HLD. He was admitted following a fall in his home. He was down on the ground for 3-7 hours. He was admitted for treatment of UTI and rhabdomyolysis. He reports hurting all over today. No dizziness, chest pain or SOB. He endors es improving dysuria. Review of Systems Review of Systems: All systems reviewed & are unremarkable except as noted in HPI and below Exam Narrative: General: No acute distress.? Chronically-ill appearing older adult male sitting up in the chair. Mental Status/Psych: Awake, alert and oriented x3. with clear speech. Neutral mood and affect. Pleasant and cooperative. Skin: fair, warm and dry. LLE with chronic skin changes, scabbed ulcerations. Bilateral dull rubor. Poor turgor. ? HEENT: Normocephalic. Conjunctivae are clear. Sclera is non-icteric. EOM intact. PERRL. Grossly normal hearing. Oral mucosa pink and moist. Tongue midline. Oropharynx within normal limits. Neck: Supple. Thyroid without nodularity. Trachea midline. No JVD. Heart: S1 and S2 regular rate and rhythm. No murmurs, gallops, or rubs auscultated. Chest: Respirations even and unlabored. Lung sounds are clear to auscultation in all lobes bilaterally without wheezes, rhonchi, or rales. Abdome
--- NOTE | 2022-01-30 16:47 | PM.IMPN ---
Progress Note: A&P Assessment and Plan (1) Fall: Code(s): W19.XXXA - Unspecified fall, initial encounter Status: Acute Assessment and Plan: Fell over his walker; mechanical. He was recently discharged from home health services. Was unable to get up PT/OT Vitamin D level 23.8, B12 543, folate 5.8, TSH 1.58 (12/23/21) - start Vit D3 1000 IU daily Could of been exacerbated by possible UTI (2) Rhabdomyolysis: Code(s): M62.82 - Rhabdomyolysis Status: Acute Assessment and Plan: CK elevated at 1468 to 2836 to 2536 Continue NS@100 mL/hour. Monitor I/O and avoid hypervolemia. Trend CK Adjust therapy as indicated Renal labs stable Hold statin, HCTZ and losartan (3) Abnormal finding on urinalysis: Code(s): R82.90 - Unspecified abnormal findings in urine Status: Acute Assessment and Plan: UA 3+ leukocytes, >75 WBC and bacteria noted. +dysuria. Urine culture pending Continue ceftriaxone 1 gram IV Q24 hours and adjust per culture results. Trend urine output (4) Hypertension: Qualifiers: Hypertension type: primary hypertension Qualified Code(s): I10 - Essential (primary) hypertension Code(s): I10 - Essential (primary) hypertension Status: Chronic Assessment and Plan: Current Blood pressure 106/61 Hold home medications for now Trend blood pressure Adjust therapy as indicated (5) Hyperlipidemia: Qualifiers: Hyperlipidemia type: unspecified Qualified Code(s): E78.5 - Hyperlipidemia, unspecified Code(s): E78.5 - Hyperlipidemia, unspecified Status: Chronic Assessment and Plan: Chronic, hold statin until rhabdomyolysis resolves. (6) Peripheral vascular disease: Code(s): I73.9 - Peripheral vascular disease, unspecified Status: Acute Assessment and Plan: Left leg wound present which is chronic. Wound consult Hx of aneurysm in the left leg No swelling noted Time Spent With Patient Time with patient: 15 - 25 minutes Subjective Date/time seen: 01/30/22 16:47 Interval history: Patient is a 66 yo male with medical history of factor V deficiency, DVT/PE, HTN, and HLD. He was admitted following a fall in his home. He was down on the ground for 3-7 hours. He was admitted for treatment of UTI and rhabdomyolysis. He reports hurting all over today. No dizziness, chest pain or SOB. He endorses improving dysuria. Review of Systems Review of Systems: All systems reviewed & are unremarkable except as noted in HPI and below Exam Narrative: General: No acute distress.? Chronically-ill appearing older adult male sitting up in the chair. Mental Status/Psych: Awake, alert and oriented x3. with clear speech. Neutral mood and affect. Pleasant and cooperative. Skin: fair, warm and dry. LLE with chronic skin changes, scabbed ulcerations. Bilateral dull rubor. Poor turgor. ? HEENT: Normocephalic. Conjunctivae are clear. Sclera is non-icteric. EOM intact. PERRL. Grossly normal hearing. Oral mucosa pink and moist. Tongue midline. Oropharynx within normal limits. Neck: Supple. Thyroid without nodularity. Trachea midline. No JVD. Heart: S1 and S2 regular rate and rhythm. No murmurs, gallops, or rubs auscultated. Chest: Respirations even and unlabored. Lung sounds are clear to auscultation in all lobes bilaterally without wheezes, rhonchi, or rales. Abdomen: Soft, round and non-tender to palpation.? Bowel sounds present in all 4 quadrants. Mild suprapubic tenderness. No CVA tenderness. Back: Moderate kyphosis. Extremities:? Grossly normal ROM all extremities generalized weakness bilaterally. +1 edema BLE, LLE>RLE. Dorsalis pedis pulses diminished and equal bilaterally. Neurological: No focal deficits. Cranial nerves 2-12 grossly intact. Objective Data Vital Signs Vital Signs: Vital Signs - 24 hr 01/29/22 19:14 01/29/22 21:20 01/29/22 21:30 T
[2022-01-30 19:52] VITALS: PULSE 68; RESP 12; O2SAT 97
[2022-01-30] MEDS: SODIUM CHLORIDE 0.9% IV 1,000 ML 100 ML IV CONT (20:28)
[2022-01-30 21:26] VITALS: BP 124/87; PULSE 83; RESP 20; TEMP 36.9; O2SAT 94
[2022-01-30 23:41] LABS: Glucose Point of Care 112 mg/dl (65-105)
[2022-01-31 05:20] VITALS: BP 149/82; PULSE 94; RESP 18; TEMP 36.8; O2SAT 96
[2022-01-31] MEDS: SODIUM CHLORIDE 0.9% IV 1,000 ML 100 ML IV CONT (05:33)
[2022-01-31 06:21] LABS: Hematocrit 39.1 % (42.0-52.0); Hemoglobin 12.8 g/dL (14.0-18.0); Mean Corpuscular HGB Conc 32.7 g/dl (32-36); Mean Corpuscular Hemoglobin 32.3 pg (26-34); Mean Corpuscular Volume 98.7 fl (80-100); Mean Platelet Volume 8.9 fl (7.4-10.4); Platelet Count Result 239 k/mm3 (150-375); Red Blood Count 3.96 M/mm3 (4.6-6.20); Red Cell Distribution Width 13.5 % (11.5-14.5); White Blood Count 5.6 K/mm3 (4.5-10.0)
[2022-01-31 06:32] LABS: Anion Gap 10 mmol/L (8-16); Blood Urea Nitrogen 16 mg/dL (9-20); Calcium 8.5 mg/dL (8.4-10.2); Carbon Dioxide 22 mmol/L (22-30); Chloride 108 mmol/L (98-107); Creatine Kinase 1368 U/L (55-170); Estimated CRCL calculation 90 ml/min; Estimated Glomerular Filt Rate > 60; Glucose 109 mg/dL (65-110); Potassium 3.4 mmol/L (3.4-5.0); Sodium 140 mmol/L (137-145)
[2022-01-31] MEDS: CHOLECALCIFEROL 1,000 UNITS TABLET 1000 UNITS PO (08:05)
[2022-01-31] MEDS: APIXABAN 5 MG TABLET PO ×2 (08:06→16:18)
[2022-01-31 09:11] VITALS: O2SAT 96
--- NOTE | 2022-01-31 11:18 | P.PNIM_ITS ---
Progress Note: A&P Assessment and Plan (1) Fall: Code(s): W19.XXXA - Unspecified fall, initial encounter Status: Acute Assessment and Plan: * Fell over his walker; mechanical. He was recently discharged from home health services. * Was unable to get up * PT/OT * Vitamin D level 23.8, B12 543, folate 5.8, TSH 1.58 (12/23/21) - start Vit D3 1000 IU daily * Could of been exacerbated by possible UTI (2) Rhabdomyolysis: Code(s): M62.82 - Rhabdomyolysis Status: Acute Assessment and Plan: * CK elevated at 1468 to 2836 to 2536 to 1368 to 1144 * decrease NS@50 mL/hour. Monitor I/O and avoid hypervolemia. * Trend CK * Adjust therapy as indicated * Renal labs stable * Continue to hold statin, HCTZ and losartan (3) Metabolic encephalopathy: Code(s): G93.41 - Metabolic encephalopathy Status: Acute Assessment and Plan: Patient has waxing and waning confusion with ?visual hallucinations. * B12 and folate within normal limits * TSH normal * Ammonia <9 * CT head on admission without acute findings. * May be secondary to acute infection, hospital induced delirium, or secondary to poor sleep. ?underlying dementia * start seroquel 12.5 mg at HS. * Monitor neuro status. No focal deficits * continue antibiotics for UTI * Consider MRI if worsens or does not improve with current therapy (4) UTI (urinary tract infection), bacterial: Code(s): N39.0 - Urinary tract infection, site not specified; A49.9 - Bacterial infection, unspecified Status: Acute Assessment and Plan: UA 3+ leukocytes, >75 WBC and bacteria noted. +dysuria. * Urine culture pending- growing gram positive cocci that is likely enterococcus group * Continue ceftriaxone 1 gram IV Q24 hours and adjust per culture results. * Trend urine output (5) Hypertension: Qualifiers: Hypertension type: primary hypertension Qualified Code(s): I10 - Essential (primary) hypertension Code(s): I10 - Essential (primary) hypertension Status: Chronic Assessment and Plan: * Current Blood pressure 115/74 * Hold home medications for now * Trend blood pressure * Adjust therapy as indicated (6) Hyperlipidemia: Qualifiers: Hyperlipidemia type: unspecified Qualified Code(s): E78.5 - Hyperlipidemia, unspecified Code(s): E78.5 - Hyperlipidemia, unspecified Status: Chronic Assessment and Plan: * Chronic, hold statin until rhabdomyolysis resolves. (7) Peripheral vascular disease: Code(s): I73.9 - Peripheral vascular disease, unspecified Status: Acute Assessment and Plan: * Left leg wound present which is chronic. * Wound consult * Hx of aneurysm in the left leg * No swelling noted Plan Discharge in 1-2 days. He was recently discharged from home health. Care Coordination following for discharge needs versus SNF placement. Time Spent With Patient Time with patient: 15 - 25 minutes Subjective Date/time seen: 01/31/22 11:18 Interval history: Patient is a 66 yo male with medical history of factor V deficiency, DVT/PE, HTN, and HLD. He was admitted following a fall in his home. He was down on the ground for 3-7 hours. He was admitted for treatment of UTI and rhabdomyolysis. He reports that he lost his wallet and states it's probably with those people that came in and were drinking last night. He is easily distracted. No dysuria, hematuria, urgency or
--- NOTE | 2022-01-31 11:18 | PM.IMPN ---
Progress Note: A&P Assessment and Plan (1) Fall: Code(s): W19.XXXA - Unspecified fall, initial encounter Status: Acute Assessment and Plan: Fell over his walker; mechanical. He was recently discharged from home health services. Was unable to get up PT/OT Vitamin D level 23.8, B12 543, folate 5.8, TSH 1.58 (12/23/21) - start Vit D3 1000 IU daily Could of been exacerbated by possible UTI (2) Rhabdomyolysis: Code(s): M62.82 - Rhabdomyolysis Status: Acute Assessment and Plan: CK elevated at 1468 to 2836 to 2536 to 1368 to 1144 decrease NS@50 mL/hour. Monitor I/O and avoid hypervolemia. Trend CK Adjust therapy as indicated Renal labs stable Continue to hold statin, HCTZ and losartan (3) Metabolic encephalopathy: Code(s): G93.41 - Metabolic encephalopathy Status: Acute Assessment and Plan: Patient has waxing and waning confusion with ?visual hallucinations. B12 and folate within normal limits TSH normal Ammonia <9 CT head on admission without acute findings. May be secondary to acute infection, hospital induced delirium, or secondary to poor sleep. ?underlying dementia start seroquel 12.5 mg at HS. Monitor neuro status. No focal deficits continue antibiotics for UTI Consider MRI if worsens or does not improve with current therapy (4) UTI (urinary tract infection), bacterial: Code(s): N39.0 - Urinary tract infection, site not specified; A49.9 - Bacterial infection, unspecified Status: Acute Assessment and Plan: UA 3+ leukocytes, >75 WBC and bacteria noted. +dysuria. Urine culture pending- growing gram positive cocci that is likely enterococcus group Continue ceftriaxone 1 gram IV Q24 hours and adjust per culture results. Trend urine output (5) Hypertension: Qualifiers: Hypertension type: primary hypertension Qualified Code(s): I10 - Essential (primary) hypertension Code(s): I10 - Essential (primary) hypertension Status: Chronic Assessment and Plan: Current Blood pressure 115/74 Hold home medications for now Trend blood pressure Adjust therapy as indicated (6) Hyperlipidemia: Qualifiers: Hyperlipidemia type: unspecified Qualified Code(s): E78.5 - Hyperlipidemia, unspecified Code(s): E78.5 - Hyperlipidemia, unspecified Status: Chronic Assessment and Plan: Chronic, hold statin until rhabdomyolysis resolves. (7) Peripheral vascular disease: Code(s): I73.9 - Peripheral vascular disease, unspecified Status: Acute Assessment and Plan: Left leg wound present which is chronic. 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 He was recently discharged from home health. Care Coordination following for discharge needs versus SNF placement. Time Spent With Patient Time with patient: 15 - 25 minutes Subjective Date/time seen: 01/31/22 11:18 Interval history: Patient is a 66 yo male with medical history of factor V deficiency, DVT/PE, HTN, and HLD. He was admitted following a fall in his home. He was down on the ground for 3-7 hours. He was admitted for treatment of UTI and rhabdomyolysis. He reports that he lost his wallet and states it's probably with those people that came in and were drinking last night. He is easily distracted. No dysuria, hematuria, urgency or flank pain. He worked with PT and had an unsteady gait and was notably confused. Review of Systems Review of Systems: All systems reviewed & are unremarkable except as noted in HPI and below Exam Narrative: General: No acute distress.? Chronically-ill appearing older adult male sitting up in the chair. Mental Status/Psych: Awake, alert and oriented to person and place. Forgetful of ear. with clear, but mumbled speech. Neutral mood and affect. cooperative. Skin: fair, warm and dry
[2022-01-31 13:20] LABS: Ammonia < 9 umol/L (9-30)
[2022-01-31 13:24] LABS: Creatine Kinase 1144 U/L (55-170)
[2022-01-31] MEDS: SODIUM CHLORIDE 0.9% IV 1,000 ML 50 ML IV CONT (13:51)
[2022-01-31 14:00] VITALS: BP 115/74; PULSE 78; RESP 16; TEMP 36.6; O2SAT 94
[2022-01-31] MEDS: QUEtiapine FUMARATE 12.5 MG TABLET PO (21:16)
[2022-01-31 22:00] VITALS: BP 117/72; PULSE 69; RESP 18; TEMP 36.8; O2SAT 93
[2022-02-01 06:00] VITALS: BP 125/75; PULSE 64; RESP 19; TEMP 36.1; O2SAT 97
[2022-02-01 07:29] LABS: Hematocrit 37.4 % (42.0-52.0); Hemoglobin 12.4 g/dL (14.0-18.0); Mean Corpuscular HGB Conc 33.2 g/dl (32-36); Mean Corpuscular Hemoglobin 32.3 pg (26-34); Mean Corpuscular Volume 97.4 fl (80-100); Mean Platelet Volume 9.2 fl (7.4-10.4); Platelet Count Result 238 k/mm3 (150-375); Red Blood Count 3.84 M/mm3 (4.6-6.20); Red Cell Distribution Width 13.6 % (11.5-14.5); White Blood Count 5.2 K/mm3 (4.5-10.0)
[2022-02-01 07:41] LABS: Anion Gap 9 mmol/L (8-16); Blood Urea Nitrogen 12 mg/dL (9-20); Calcium 8.6 mg/dL (8.4-10.2); Carbon Dioxide 24 mmol/L (22-30); Chloride 108 mmol/L (98-107); Estimated CRCL calculation 101 ml/min; Estimated Glomerular Filt Rate > 60; Glucose 101 mg/dL (65-110); Potassium 3.3 mmol/L (3.4-5.0); Sodium 141 mmol/L (137-145)
[2022-02-01] MEDS: SODIUM CHLORIDE 0.9% IV 1,000 ML 50 ML IV CONT (08:44)
[2022-02-01] MEDS: APIXABAN 5 MG TABLET PO ×2 (08:45→16:13)
[2022-02-01] MEDS: CHOLECALCIFEROL 1,000 UNITS TABLET 1000 UNITS PO (08:45)
--- NOTE | 2022-02-01 11:00 | PM.IMPN ---
Progress Note: A&P Assessment and Plan (1) Fall: Code(s): W19.XXXA - Unspecified fall, initial encounter Status: Acute Assessment and Plan: Fell over his walker; mechanical. He was recently discharged from home health services. Was unable to get up PT/OT Vitamin D level 23.8, B12 543, folate 5.8, TSH 1.58 (12/23/21) - start Vit D3 1000 IU daily Could of been exacerbated by possible UTI or dehydration (2) Rhabdomyolysis: Code(s): M62.82 - Rhabdomyolysis Status: Acute Assessment and Plan: CK elevated at 1468 to 2836 to 2536 to 1368 to 1144 decrease NS@50 mL/hour. Monitor I/O and avoid hypervolemia. Trend CK Adjust therapy as indicated Renal labs stable Continue to hold statin, HCTZ and losartan (3) Metabolic encephalopathy: Code(s): G93.41 - Metabolic encephalopathy Status: Acute Assessment and Plan: Patient has waxing and waning confusion with visual hallucinations. B12 and folate within normal limits TSH normal Ammonia <9 CT head on admission without acute findings. Seems to be more hospital acquired delirium start seroquel 12.5 mg at HS. Monitor neuro status. No focal deficits continue antibiotics for UTI (4) UTI (urinary tract infection), bacterial: Code(s): N39.0 - Urinary tract infection, site not specified; A49.9 - Bacterial infection, unspecified Status: Acute Assessment and Plan: UA 3+ leukocytes, >75 WBC and bacteria noted. +dysuria. Urine culture grew aerococcus urineae Change ceftriaxone to cefdinir for a total of 7 days Trend urine output (5) Hypertension: Qualifiers: Hypertension type: primary hypertension Qualified Code(s): I10 - Essential (primary) hypertension Code(s): I10 - Essential (primary) hypertension Status: Chronic Assessment and Plan: Current Blood pressure 125/75 Hold home medications for now Trend blood pressure Adjust therapy as indicated (6) Hyperlipidemia: Qualifiers: Hyperlipidemia type: unspecified Qualified Code(s): E78.5 - Hyperlipidemia, unspecified Code(s): E78.5 - Hyperlipidemia, unspecified Status: Chronic Assessment and Plan: Chronic, hold statin until rhabdomyolysis resolves. (7) Peripheral vascular disease: Code(s): I73.9 - Peripheral vascular disease, unspecified Status: Acute Assessment and Plan: Left leg wound present which is chronic. 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 He seems to be more with it. He is getting upset because he feels that they are not letting him up, and that he is locked in side the bed like a prisoner. He does feel that he is getting better. He is also not experiencing as many urinary symptoms. He denies any chest pain, shortness of breath, nausea, vomiting, diarrhea, constipation, weakness or fatigue. He was able to walk to the bathroom with the walker. He did have some problems with getting out of bed, which he did need some help. 01/31/22? 11:18 Patient is a 66 yo male with medical history of factor V deficiency, DVT/PE, HTN, and HLD. He was admitted following a fall in his home. He was down on the ground for 3-7 hours. He was admitted for treatment of UTI and rhabdomyolysis. He reports that he lost his wallet and states it's probably with those people that came in and were drinking last night. He is easily distracted. No dysuria, hematuria, urgency or flank pain. He worked with PT and had an unsteady gait and was notably confused. 01/30/22? 16:47 Interval history: Patient is a 66 yo male with medical history of factor V deficiency, DVT/PE, HTN, and HLD. He was admitted following a fall in his
--- NOTE | 2022-02-01 11:00 | P.PNIM_ITS ---
Progress Note: A&P Assessment and Plan (1) Fall: Code(s): W19.XXXA - Unspecified fall, initial encounter Status: Acute Assessment and Plan: * Fell over his walker; mechanical. He was recently discharged from home health services. * Was unable to get up * PT/OT * Vitamin D level 23.8, B12 543, folate 5.8, TSH 1.58 (12/23/21) - start Vit D3 1000 IU daily * Could of been exacerbated by possible UTI or dehydration (2) Rhabdomyolysis: Code(s): M62.82 - Rhabdomyolysis Status: Acute Assessment and Plan: * CK elevated at 1468 to 2836 to 2536 to 1368 to 1144 * decrease NS@50 mL/hour. Monitor I/O and avoid hypervolemia. * Trend CK * Adjust therapy as indicated * Renal labs stable * Continue to hold statin, HCTZ and losartan (3) Metabolic encephalopathy: Code(s): G93.41 - Metabolic encephalopathy Status: Acute Assessment and Plan: * Patient has waxing and waning confusion with visual hallucinations. * B12 and folate within normal limits * TSH normal * Ammonia <9 * CT head on admission without acute findings. * Seems to be more hospital acquired delirium * start seroquel 12.5 mg at HS. * Monitor neuro status. No focal deficits * continue antibiotics for UTI (4) UTI (urinary tract infection), bacterial: Code(s): N39.0 - Urinary tract infection, site not specified; A49.9 - Bacterial infection, unspecified Status: Acute Assessment and Plan: * UA 3+ leukocytes, >75 WBC and bacteria noted. +dysuria. * Urine culture grew aerococcus urineae * Change ceftriaxone to cefdinir for a total of 7 days * Trend urine output (5) Hypertension: Qualifiers: Hypertension type: primary hypertension Qualified Code(s): I10 - Essent ial (primary) hypertension Code(s): I10 - Essential (primary) hypertension Status: Chronic Assessment and Plan: * Current Blood pressure 125/75 * Hold home medications for now * Trend blood pressure * Adjust therapy as indicated (6) Hyperlipidemia: Qualifiers: Hyperlipidemia type: unspecified Qualified Code(s): E78.5 - Hyperlipidemia, unspecified Code(s): E78.5 - Hyperlipidemia, unspecified Status: Chronic Assessment and Plan: * Chronic, hold statin until rhabdomyolysis resolves. (7) Peripheral vascular disease: Code(s): I73.9 - Peripheral vascular disease, unspecified Status: Acute Assessment and Plan: * Left leg wound present which is chronic. 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 He seems to be more with it. He is getting upset because he feels that they are not letting him up, and that he is locked in side the bed like a prisoner. He does feel that he is getting better. He is also not experiencing as many urinary symptoms. He denies any chest pain, shortness of breath, nausea, vomiting, diarrhea, constipation, weakness or fatigue. He was able to walk to the bathroom with the walker. He did have some problems with getting out of bed, which he did need some help. 01/31/22? 11:18 Patient is a 66 yo male with medical history of factor V deficiency, DVT/PE, HTN, and HLD. He was admitted following a fall in his home. He was down
[2022-02-01] MEDS: NICOTINE (*PBKC) 14 MG PATCH 1 PATCH TRANSDERM (12:15)
[2022-02-01 13:52] LABS: Creatine Kinase 471 U/L (55-170)
[2022-02-01 14:50] VITALS: BP 109/69; PULSE 70; RESP 20; TEMP 36.6; O2SAT 96
[2022-02-01] MEDS: QUEtiapine FUMARATE 12.5 MG TABLET PO (20:18)
[2022-02-01] MEDS: CEFDINIR 300 MG CAPSULE PO (20:18)
[2022-02-01 22:00] VITALS: BP 125/74; PULSE 70; RESP 20; TEMP 36.8; O2SAT 98
[2022-02-02 05:21] VITALS: BP 116/97; PULSE 63; RESP 16; TEMP 36.6; O2SAT 98
[2022-02-02 06:32] LABS: Hematocrit 37.9 % (42.0-52.0); Hemoglobin 12.3 g/dL (14.0-18.0); Mean Corpuscular HGB Conc 32.5 g/dl (32-36); Mean Corpuscular Hemoglobin 32.5 pg (26-34); Mean Corpuscular Volume 100.3 fl (80-100); Mean Platelet Volume 9.1 fl (7.4-10.4); Platelet Count Result 242 k/mm3 (150-375); Red Blood Count 3.78 M/mm3 (4.6-6.20); Red Cell Distribution Width 13.6 % (11.5-14.5); White Blood Count 5.2 K/mm3 (4.5-10.0)
[2022-02-02 06:39] LABS: Alanine Aminotransferase 26 U/L (6-50); Albumin Level 3.4 g/dL (3.5-5.1); Alkaline Phosphatase 55 U/L (38-126); Anion Gap 9 mmol/L (8-16); Aspartate Amino Transferase 32 U/L (17-59); Bilirubin,Total 0.2 mg/dL (0.2-1.3); Blood Urea Nitrogen 12 mg/dL (9-20); Calcium 8.4 mg/dL (8.4-10.2); Carbon Dioxide 24 mmol/L (22-30); Chloride 107 mmol/L (98-107); Creatine Kinase 251 U/L (55-170); Estimated CRCL calculation 90 ml/min; Estimated Glomerular Filt Rate > 60; Glucose 122 mg/dL (65-110); Magnesium 2.1 mg/dL (1.6-2.3); Potassium 3.2 mmol/L (3.4-5.0); Sodium 140 mmol/L (137-145)
[2022-02-02] MEDS: CHOLECALCIFEROL 1,000 UNITS TABLET 1000 UNITS PO (09:01)
[2022-02-02] MEDS: CEFDINIR 300 MG CAPSULE PO (09:01)
[2022-02-02] MEDS: APIXABAN 5 MG TABLET PO (09:01)
[2022-02-02] MEDS: POTASSIUM CHLORIDE 20 MEQ TABLET 40 MEQ PO (09:06)
--- NOTE | 2022-02-02 10:00 | PM.DS ---
DS: Admitting Diagnosis Discharge Date 02/02/22 1000 Admitting Diagnosis Rhabdomyolysis DS: Discharge Diagnosis Discharge Diagnosis (1) Fall: Code(s): W19.XXXA - Unspecified fall, initial encounter Status: Acute Assessment and Plan: Fell over his walker; mechanical. He was recently discharged from home health services. Was unable to get up PT/OT Vitamin D level 23.8, B12 543, folate 5.8, TSH 1.58 (12/23/21) - start Vit D3 1000 IU daily Could of been exacerbated by possible UTI or dehydration (2) Rhabdomyolysis: Code(s): M62.82 - Rhabdomyolysis Status: Acute Assessment and Plan: CK elevated at 1468 to 2836 to 2536 to 1368 to 1144 to 251 decrease NS@50 mL/hour. Monitor I/O and avoid hypervolemia. Trend CK Adjust therapy as indicated Renal labs stable Continue to hold statin, HCTZ and losartan (3) Metabolic encephalopathy: Code(s): G93.41 - Metabolic encephalopathy Status: Acute Assessment and Plan: resolved stop Seroquel Patient has waxing and waning confusion with visual hallucinations. B12 and folate within normal limits TSH normal Ammonia <9 CT head on admission without acute findings. Seems to be more hospital acquired delirium start seroquel 12.5 mg at HS. Monitor neuro status. No focal deficits continue antibiotics for UTI (4) UTI (urinary tract infection), bacterial: Code(s): N39.0 - Urinary tract infection, site not specified; A49.9 - Bacterial infection, unspecified Status: Acute Assessment and Plan: UA 3+ leukocytes, >75 WBC and bacteria noted. +dysuria. Urine culture grew aerococcus urineae Change ceftriaxone to cefdinir for a total of 7 days Trend urine output (5) Hypertension: Qualifiers: Hypertension type: primary hypertension Qualified Code(s): I10 - Essential (primary) hypertension Code(s): I10 - Essential (primary) hypertension Status: Chronic Assessment and Plan: Current Blood pressure 116/97 Hold home medications for now Trend blood pressure Adjust therapy as indicated (6) Hyperlipidemia: Qualifiers: Hyperlipidemia type: unspecified Qualified Code(s): E78.5 - Hyperlipidemia, unspecified Code(s): E78.5 - Hyperlipidemia, unspecified Status: Chronic Assessment and Plan: Chronic, Restart now that Rhabdo is resolved (7) Peripheral vascular disease: Code(s): I73.9 - Peripheral vascular disease, unspecified Status: Acute Assessment and Plan: Left leg wound present which is chronic. 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 Patient was getting up to get his cellphone from the table and tripped over his walker unfortunately was unable to get himself off the floor. When his sister finally got over there she called 911. Upon arrival it was noted the CK was elevated at 14 68 got as high as 2836. IV fluids were initiated. Patient was also noted to have a little bit of metabolic encephalopathy related to probable hospital delirium. Head CT was done and showed no acute findings. Urine culture did grow bacteria and patient was treated with cefdinir. Blood pressures have been on Trend have been stable. Wound nurse did come in look the patient's leg which wound was stable at that time. Labs and vital signs appear stable at this time. PT and OT had been work with the patient and patient has been able to walk 700ft with a walker. Was able to get the patient to get out of bed on his own walk to the bathroom and sat on the commode and get up without any help. Patient will be going home with home health. He currently denies any chest pain, sh
--- NOTE | 2022-02-02 10:00 | P.DS_ITS ---
DS: Admitting Diagnosis Discharge Date 02/02/22 1000 Admitting Diagnosis Rhabdomyolysis DS: Discharge Diagnosis Discharge Diagnosis (1) Fall: Code(s): W19.XXXA - Unspecified fall, initial encounter Status: Acute Assessment and Plan: * Fell over his walker; mechanical. He was recently discharged from home health services. * Was unable to get up * PT/OT * Vitamin D level 23.8, B12 543, folate 5.8, TSH 1.58 (12/23/21) - start Vit D3 1000 IU daily * Could of been exacerbated by possible UTI or dehydration (2) Rhabdomyolysis: Code(s): M62.82 - Rhabdomyolysis Status: Acute Assessment and Plan: * CK elevated at 1468 to 2836 to 2536 to 1368 to 1144 to 251 * decrease NS@50 mL/hour. Monitor I/O and avoid hypervolemia. * Trend CK * Adjust therapy as indicated * Renal labs stable * Continue to hold statin, HCTZ and losartan (3) Metabolic encephalopathy: Code(s): G93.41 - Metabolic encephalopathy Status: Acute Assessment and Plan: * resolved stop Seroquel * Patient has waxing and waning confusion with visual hallucinations. * B12 and folate within normal limits * TSH normal * Ammonia <9 * CT head on admission without acute findings. * Seems to be more hospital acquired delirium * start seroquel 12.5 mg at HS. * Monitor neuro status. No focal deficits * continue antibiotics for UTI (4) UTI (urinary tract infection), bacterial: Code(s): N39.0 - Urinary tract infection, site not specified; A49.9 - Bacterial infection, unspecified Status: Acute Assessment and Plan: * UA 3+ leukocytes, >75 WBC and bacteria noted. +dysuria. * Urine culture grew aerococcus urineae * Change ceftriaxone to cefdinir for a total of 7 days * Trend urine output (5) Hypertension: Qualifiers: Hypertension type: primary hypertension Qualified Code(s): I10 - Essential (primary) hypertension Code(s): I10 - Essential (primary) hypertension Status: Chronic Assessment and Plan: * Current Blood pressure 116/97 * Hold home medications for now * Trend blood pressure * Adjust therapy as indicated (6) Hyperlipidemia: Qualifiers: Hyperlipidemia type: unspecified Qualified Code(s): E78.5 - Hyperlipidemia, unspecified Code(s): E78.5 - Hyperlipidemia, unspecified Status: Chronic Assessment and Plan: * Chronic, * Restart now that Rhabdo is resolved (7) Peripheral vascular disease: Code(s): I73.9 - Peripheral vascular disease, unspecified Status: Acute Assessment and Plan: * Left leg wound present which is chronic. 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 Patient was getting up to get his cellphone from the table and tripped over his walker unfortunately was unable to get himself off the floor. When his sister finally got over there she called 911. Upon arrival it was noted the CK was elevated at 14 68 got as high as 2836. IV fluids were initiated. Patient was also noted to have a little bit of metabolic encephalopathy related to probable hospital delirium. Head CT was done and showed no acute findings. Urine culture did grow bacteria and
[2022-02-02] MEDS: LOSARTAN POTASSIUM 50 MG TABLET PO (10:05)
[2022-02-02] MEDS: hydroCHLOROthiazide 12.5 MG CAPSULE PO (10:05)
[2022-02-02 14:00] VITALS: BP 102/60; PULSE 79; RESP 18; TEMP 36.4; O2SAT 97
== END 2022-02-02 14:55 | disposition home health service (06) | DRG 689 ==
LOC: ANHED 22:03 → ANH3MEDSUR 23:05
PROVIDERS: Nurse Practitioner Family; Admitting Provider Internal Medicine; Emergency Provider Emergency Medicine; PCP Family Medicine; Visit Provider Nurse Practitioner
DX: N39.0 Urinary tract infection, site not specified (principal); G93.41 Metabolic encephalopathy; M62.82 Rhabdomyolysis; D68.2 Hereditary deficiency of other clotting factors; F05 Delirium due to known physiological condition; W18.09XA Striking against other object with subsequent fall, initial encounter; B96.89 Other specified bacterial agents as the cause of diseases classified elsewhere; Z20.822 Contact with and (suspected) exposure to COVID-19; E86.0 Dehydration; I10 Essential (primary) hypertension; E78.5 Hyperlipidemia, unspecified; I73.9 Peripheral vascular disease, unspecified; F17.210 Nicotine dependence, cigarettes, uncomplicated; Z86.718 Personal history of other venous thrombosis and embolism; Z79.01 Long term (current) use of anticoagulants
CPT/HCPCS: 36415; 70450; 80048; 80053; 81001; 82140; 82306; 82550; 82607; 82746; 82948; 83735; 84443; 85025; 85027; 87086; 87088; 96361; 96365; 97110; 97116; 97161; 97166; 97530; 97535; 99285; A9270; C9803; G0378; J0696; J7030; U0003; U0005

== ENCOUNTER → 2022-09-22 10:47 | Outpatient (CLI) | payer MEDICARE, SELFPAY ==
--- NOTE | ~2022-09-22 | XR_ITS ---
XR lumbar spine 2-3V 09/22/2022 11:19 Indication: Back pain Procedure: 3 views lumbar spine Comparison: No prior studies for comparison. Findings: Vertebral body heights are maintained. There is disc narrowing at all lumbar levels. Vacuum phenomena present at L4-5. There is advanced multilevel facet hypertrophy. No acute fracture, subluxation or s pondylolisthesis. There is an IVC filter, superior tip at the L1 level. There is atherosclerosis. The re is dextroscoliosis. There are gallstones. There are stones in the left kidney. Impression: 1: Severe lumbar spondylosis. 2: Cholelithiasis. 3: Left nephrolithiasis. Reviewed, dictated and finalized at location B. Impression: 1: Severe lumbar spondylosis. 2: Cholelithiasis. 3: Left nephrolithiasis.
== END ==
PROVIDERS: PCP Family Medicine; Visit Provider Nurse Practitioner Family
DX: N20.0 Calculus of kidney (principal); K80.20 Calculus of gallbladder without cholecystitis without obstruction; M47.896 Other spondylosis, lumbar region
CPT/HCPCS: 72100

== ENCOUNTER 2022-10-28 20:04 | Emergency (ER) | payer MEDICARE, SELFPAY ==
--- NOTE | ~2022-10-28 | CT_ITS ---
EXAMINATION: CT brain wo con DATE: 10/28/2022 21:09 INDICATION: Status post fall. TECHNIQUE: Computed tomography (CT) of the head was performed without intravenous contrast. The dose- length product was 1059.33 mGy-cm. Automated exposure control and iterative reconstruction technique were employed. COMPARISON: CT dated 01/30/2022 FINDINGS: Generalized atrophy. There are scattered mild periventricular and subcortical white matter changes, most likely related to small vessel ischemic disease (microangiopathy). No acute intracrania l hemorrhage, infarction, mass or mass effect. No ventriculomegaly or midline shift. Basilar cisterns are patent. There is intracranial atherosclerosis. There is chronic sinusitis involving the frontal, ethmoid and maxillary sinuses. Mild mucosal thickening of the sphenoid sinuses. Mastoids are pneumat ized. No depressed skull fractures. IMPRESSION: 1. No acute intracranial abnormality. 2: Chronic pansinusitis. 3: Chronic age-related findings. Reviewed, dictated and finalized at location A.
[2022-10-28 20:13] VITALS: BP 111/66; PULSE 88; RESP 16; TEMP 36.9; O2SAT 95
[2022-10-28 20:34] VITALS: PULSE 86
--- NOTE | 2022-10-28 20:41 | ECG_ITS ---
Measurements Intervals [place] Rate: 79 P: 30 [place]: 120 QRS: 5 QRSD: 99 T: 1 QT: 350 QTc: 403 Interpretive Statements SINUS RHYTHM NONSPECIFIC T-WAVE ABNORMALITY BASELINE ARTIFACT LIMITS INTERPRETATION ABNORMAL ECG COMPARED TO ECG 12/21/2021 21:42:33 NO SIGNIFICANT CHANGES Electronically Signed On 10-29-2022 9:11:46 CDT by Wes Felder M.D.
[2022-10-28 21:07] LABS: Basophils Absolute Auto 0.1 K/mm3 (0.0-0.1); Basophils Percent Auto 0.7 % (0.2-1.2); Eosinophils Absolute Auto 0.1 K/mm3 (0-0.3); Eosinophils Percent Auto 0.6 % (0-4.4); Hematocrit 43.7 % (42.0-52.0); Hemoglobin 14.3 g/dL (14.0-18.0); Immature Granulocyte Absolute 0.04 K/mm3 (0.00-0.031); Immature Granulocyte Percent A 0.5 % (0-0.5); Lymphocytes Absolute Auto 1.32 K/mm3 (0.9-3.2); Lymphocytes Percent Auto 15.3 % (18.3-44.2); Mean Corpuscular HGB Conc 32.7 g/dl (32-36); Mean Corpuscular Hemoglobin 31.4 pg (26-34); Mean Platelet Volume 9.1 fl (7.4-10.4); Monocytes Absolute Auto 0.9 K/mm3 (0.1-0.6); Monocytes Percent Auto 10.3 % (2.6-8.5); Neutrophils Absolute Auto 6.3 K/mm3 (1.3-6.7); Neutrophils Percent Auto 72.6 % (45.5-73.1); Platelet Count Result 257 k/mm3 (150-375); Red Blood Count 4.55 M/mm3 (4.6-6.20); Red Cell Distribution Width 13.3 % (11.5-14.5); White Blood Count 8.6 K/mm3 (4.5-10.0)
--- NOTE | 2022-10-28 21:14 | ED.GENADULT ---
HPI - General Adult General Chief complaint: Weakness Stated complaint: dizzy, generalized weakness Time Seen by Provider: 10/28/22 20:19 Source: patient Mode of arrival: ambulatory Limitations: no limitations History of Present Illness HPI narrative: This is a 67-year-old male with PMH of UTI, chronic left leg weakness, factor V deficiency, HTN who presents to the ED with chief complaint of disorientation and generalized weakness. Patient is here with his family members who state that he has been a little more confused over the past 2 to 3 weeks. They feel that he has had some generalized weakness as well. Patient states that he felt a little disoriented today and thought that he may have another UTI which is what happened last year. He lives alone at home. He uses a cane on occasion for assistance with ambulation, as he has chronic left leg weakness due to old injury. Denies any focal weakness or numbness. Denies any other neurologic symptoms. States that he did slip on his hardwood floor today but was able to brace himself before he fell to the ground. Denies any pain at this time. Denies urinary symptoms. He states now that he is here in the hospital he is feeling much better and does not feel disoriented at all. Denies fevers, chills, chest pain, shortness of breath, cough, abdominal pain, vomiting. Related Data Allergies Allergy/AdvReac Type Severity Reaction Status Date / Time No Known Allergies Allergy Verified 09/22/22 08:28 Review of Systems Review of Systems: CONSTITUTIONAL: See HPI EYES: Denies visual changes, redness, or discharge. ENT: Denies rhinorrhea, congestion, sore throat, or otalgia. CARDIOVASCULAR: Denies chest pain, palpitations, or edema. RESPIRATORY: Denies cough or dyspnea. GASTROINTESTINAL: Denies abdominal pain, nausea, vomiting, or diarrhea. GENITOURINARY: Denies dysuria or hematuria. SKIN: Denies rash or itching. MUSCULOSKELETAL: Denies back pain, joint pain, or myalgia. NEUROLOGIC: Denies headache, numbness, dizziness, or weakness. PSYCHIATRIC: Denies anxiety or depression. [facility] Past Medical History Medical History Adult BMI 31.0-31.9 kg/sq m Aneurysm of left leg Blood clot in vein BMI 33.0-33.9,adult 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 Peripheral vascular disease Surgical History Surgical History Hx of vascular surgery Family History Family History Sibling COVID Carcinoma of colon Sibling Breast cancer Father Mother Diabetes mellitus Social History Social History Smoking packs per day: 0.5 Smoking cigarettes per day: 10.0 Years smoked: 30 Smoking pack-years: 15.00 Smoking status: Current some day smoker Tobacco type: cigarettes Second hand tobacco smoke exposure: No Alcohol intake: former Drinks per week: 12 Alcohol use details: beer Substance use: never Substance use type: does not use Lack of Transportation: No Lack of Food: Never True Current Housing: I Have Housing Concerned About Future Housing: No Difficulty Paying Gas/Electric Bills: No Difficulty Paying for Meds: No Currently Unemployed: No Education: High School Diploma/GED Difficulty w/ Childcare or Family Care: No Living arrangements: alone Occupation/Education: retired 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 Gender identity (if verbalized by the patient): Male Sexual Orientation (if Verbalized by the Patient): Straight or Heterosexual Spiritual care concerns: No Agree to blood products: Yes Exam Narrative: GENERAL: Well-appearing, well-nourished, and in no acute distress. HEAD: Normocephalic, atraumatic. EYES: PERRLA and EOMI. EN
--- NOTE | 2022-10-28 22:56 | PC.NURSE ---
Patient attempted to provide urine specimen, unsuccessful. Patient refused any additional attempts. Patient states he has a large prostate. ERP notified,new orders being placed.
[2022-10-28] MEDS: SODIUM CHLORIDE 0.9% IV 1,000 ML 999 ML IV CONT (23:00)
[2022-10-28 23:05] LABS: Alanine Aminotransferase 21 U/L (6-50); Albumin Level 4.6 g/dL (3.5-5.1); Alkaline Phosphatase 71 U/L (38-126); Anion Gap 8 mmol/L (8-16); Aspartate Amino Transferase 21 U/L (17-59); Blood Urea Nitrogen 18 mg/dL (9-20); Carbon Dioxide 24 mmol/L (22-30); Chloride 106 mmol/L (98-107); Estimated CRCL calculation 83 ml/min; Estimated Glomerular Filt Rate > 60; Glucose 93 mg/dL (65-110); Potassium 3.5 mmol/L (3.4-5.0); Sodium 138 mmol/L (137-145)
[2022-10-29 00:49] LABS: Appearance Urine Cloudy (Clear); Bacteria Urine Rare /hpf; Bilirubin Urine Negative (Negative); Blood Urine 3+ (Negative); Color Urine Yellow (Yellow); Glucose Urine UA Negative (Negative); Ketones Urine Negative (Negative); Leukocyte Esterase Ur Trace LEU/UL (Negative); Need Manual Microscopic Reviewed; Nitrate Urine Negative (Negative); Protein Urine 1+ mg/dL (Negative); RBC Urine >100 /hpf (0-2); Specific Grav Ur 1.023 (1.001-1.035); Squamous Epithelial Cell Urine None seen /hpf (Few); Urobilinogen Urine 0.2 mg/dL (<2.0); WBC Urine 51-100 /hpf; pH Urine 5.5 (5.0-9.0)
[2022-10-29 00:50] LABS: Add Urine Microscopic? YES
[2022-10-29] MEDS: CEPHALEXIN 500 MG CAPSULE PO (01:13)
== END 2022-10-29 01:32 | disposition home or self-care (01) ==
PROVIDERS: Emergency Provider Physician Assistant; PCP Family Medicine
DX: N39.0 Urinary tract infection, site not specified (principal); I10 Essential (primary) hypertension; D68.2 Hereditary deficiency of other clotting factors; Z86.718 Personal history of other venous thrombosis and embolism; I73.9 Peripheral vascular disease, unspecified; F17.210 Nicotine dependence, cigarettes, uncomplicated; Z79.01 Long term (current) use of anticoagulants; R94.31 Abnormal electrocardiogram [ECG] [EKG]; J32.9 Chronic sinusitis, unspecified
CPT/HCPCS: 36415; 70450; 80053; 81001; 85025; 87086; 87088; 93005; 96360; 99284; A9270; J7030

== ENCOUNTER 2022-11-27 11:43 | Inpatient (IN) | payer MEDICARE, SELFPAY ==
[2022-11-27] VITALS (32 sets, daily range): BP systolic 102–137; BP diastolic 72–92; PULSE 59–80; RESP 12–20; TEMP 36.3–36.6; O2SAT 96–99; BMI 34.0
--- NOTE | ~2022-11-27 | XR_ITS ---
EXAMINATION: XR chest 1V Exam Date/Time: 11/27/2022 14:10 CDT HISTORY: fall, Comparison: 07/20/2014. RESULT: Lines, tubes, and devices: Possible gallstone. IVC filter. Lungs and pleura: Clear. Cardiomediastinal silhouette: Stable. Other: No acute osseous or upper abdominal finding. IMPRESSION: No acute cardiopulmonary process. Reviewed, dictated and finalized at location K.
--- NOTE | ~2022-11-27 | CT_ITS ---
EXAMINATION: CT brain wo con DATE: 11/27/2022 14:13 INDICATION: Fall. Confusion. TECHNIQUE: Computed tomography (CT) of the head was performed without intravenous contrast. The mA wa s adjusted according to patient size. Iterative reconstruction technique was employed. Exam dose: 68 1.00 mGy-cm total exam DLP. COMPARISON: 10/28/2022 CT brain. FINDINGS: Bilateral vertebral artery, basilar artery and bilateral carotid siphon and supraclinoid in ternal carotid artery calcifications are present. There is nonspecific patchy diminished attenuation of the cerebral white matter, likely due to chronic small vessel ischemic changes. No intracranial mass lesion or hemorrhage or cerebrovascular accident is evident. No midline shift or mass effect. No subdural or epidural hematoma. There is complete opacification of the frontal and maxillary sinuses and extensive soft tissue opacif ication of the ethmoid air cells, not significantly changed since 10/28/2022. The mastoid air cells are normally developed and aerated. No fracture or bone destruction of the cranial vault. IMPRESSION: Extensive chronic sinusitis, not significantly changed since 10/28/2022 No acute intracranial finding or skull fracture Cerebral atherosclerosis and chronic small vessel ischemic changes of the cerebral white matter Reviewed, dictated and finalized at Location A. Reviewed, dictated and finalized at location B. IMPRESSION: Extensive chronic sinusitis, not significantly changed since 2022 No acute intracranial finding or skull fracture Cerebral atherosclerosis and chronic small vessel ischemic changes of the cereb ral white matter
--- NOTE | ~2022-11-27 | MR_ITS ---
EXAMINATION: MR cervical spine wo con DATE: 11/28/2022 16:27 INDICATION: Lower extremity weakness. TECHNIQUE: Magnetic resonance imaging (MRI) of the cervical spine was performed without intravenous c ontrast. Sequences included sagittal T2-weighted FSE, sagittal T2-weighted FS FSE, sagittal T1-weight ed FSE, axial MERGE, and axial T2-weighted FSE. COMPARISON: None FINDINGS: There is mild kyphosis of cervical spine. There is 2 mm retrolisthesis of C5 on C6. There i s mild chronic anterior wedging of C6 vertebral body. There is mildly decreased disc height at C3-C4, severely decreased disc height from C4-C5 through C6-C7, and moderately decreased disc height at C7- T1. The spinal cord signal intensity is normal. The following disc levels are specifically discussed: C2-C3: The disc does not extend beyond the endplate margin. There is no uncovertebral joint osteoarth ritis. There is severe bilateral facet joint osteoarthritis. There is mild bilateral neural foraminal stenosis. There is no central canal stenosis. C3-C4: The disc is bulging. There is severe bilateral uncovertebral joint osteoarthritis. There is se giancarlo bilateral facet joint osteoarthritis. There is mild right and moderate left neural foraminal kurtis nosis. There is mild central canal stenosis with ventral indentation of the spinal cord. C4-C5: The disc is bulging. There is severe bilateral uncovertebral joint osteoarthritis. There is se giancarlo right and moderate left facet joint osteoarthritis. There is mild right and severe left neural f oraminal stenosis. There is mild central canal stenosis with ventral indentation of the spinal cord. C5-C6: The disc is bulging. There is severe bilateral uncovertebral joint osteoarthritis. There is se giancarlo bilateral facet joint osteoarthritis. There is moderate bilateral neural foraminal stenosis. The re is mild central canal stenosis with ventral indentation of the spinal cord. C6-C7: The disc is bulging. There is severe bilateral uncovertebral joint osteoarthritis. There is se giancarlo bilateral facet joint osteoarthritis. There is moderate bilateral neural foraminal stenosis. The re is mild central canal stenosis. C7-T1: The disc is bulging. There is severe bilateral uncovertebral joint osteoarthritis. There is se giancarlo bilateral facet joint osteoarthritis. There is moderate right and mild left neural foraminal kurtis nosis. There is mild central canal stenosis. IMPRESSION: 1. Severe cervical spondylosis. Reviewed, dictated and finalized at location A.
--- NOTE | ~2022-11-27 | XR_ITS ---
EXAMINATION: XR humerus LT DATE: 11/28/2022 09:22 INDICATION: Left upper arm pain. Fall. TECHNIQUE: 2 views of left humerus on 3 radiographs were obtained. COMPARISON: None. FINDINGS: Bone alignment is normal. No fracture. Glenohumeral joint is not well profiled. IMPRESSION: 1. No fracture. Reviewed, dictated and finalized at location A. IMPRESSION: 1. No fracture.
--- NOTE | ~2022-11-27 | XR_ITS ---
EXAMINATION: XR shoulder LT min 2V DATE: 11/28/2022 09:22 INDICATION: Left shoulder pain. Fall. TECHNIQUE: 4 views of left shoulder were obtained. COMPARISON: None. FINDINGS: Bone alignment is normal. No fracture. There is mild osteoarthritis of glenohumeral joint c haracterized by tiny osteophytes. Acromioclavicular joint is normal. IMPRESSION: 1. Mild left glenohumeral joint osteoarthritis. Reviewed, dictated and finalized at location A.
--- NOTE | 2022-11-27 13:12 | ECG_ITS ---
Measurements Intervals [place] Rate: 61 P: 60 ME: 164 QRS: 15 QRSD: 82 T: -5 QT: 365 QTc: 370 Interpretive Statements SINUS RHYTHM NONSPECIFIC ST & T-WAVE ABNORMALITY- ANT/INF LEADS BASELINE ARTIFACT- I, II, III, AVR, AVL, AVF, V1-V6 BORDERLINE ECG COMPARED TO ECG 10/28/2022 20:52:58 NO SIGNIFICANT CHANGES Electronically Signed On 11-27-2022 14:34:29 CDT by Yuri Raymond D.O.
[2022-11-27 13:49] LABS: Basophils Percent Auto 0.5 % (0.2-1.2); Eosinophils Percent Auto 0.4 % (0-4.4); Hematocrit 43.3 % (42.0-52.0); Hemoglobin 14.5 g/dL (14.0-18.0); Immature Granulocyte Absolute 0.02 K/mm3 (0.00-0.031); Immature Granulocyte Percent A 0.3 % (0-0.5); Lymphocytes Absolute Auto 0.89 K/mm3 (0.9-3.2); Lymphocytes Percent Auto 11.5 % (18.3-44.2); Mean Corpuscular HGB Conc 33.5 g/dl (32-36); Mean Corpuscular Hemoglobin 31.9 pg (26-34); Mean Corpuscular Volume 95.4 fl (80-100); Mean Platelet Volume 9.2 fl (7.4-10.4); Monocytes Absolute Auto 0.7 K/mm3 (0.1-0.6); Monocytes Percent Auto 8.9 % (2.6-8.5); Neutrophils Absolute Auto 6.1 K/mm3 (1.3-6.7); Neutrophils Percent Auto 78.4 % (45.5-73.1); Platelet Count Result 242 k/mm3 (150-375); Red Blood Count 4.54 M/mm3 (4.6-6.20); Red Cell Distribution Width 13.2 % (11.5-14.5); White Blood Count 7.7 K/mm3 (4.5-10.0)
[2022-11-27 13:58] LABS: INR 1.1; Prothrombin Time 14.6 Seconds (11.1-14.7)
[2022-11-27 13:59] LABS: Partial Thromboplastin Time 28.2 SECONDS (22.3-36.8)
[2022-11-27 14:04] LABS: Alanine Aminotransferase 25 U/L (6-50); Albumin Level 4.4 g/dL (3.5-5.1); Alkaline Phosphatase 76 U/L (38-126); Anion Gap 8 mmol/L (8-16); Aspartate Amino Transferase 39 U/L (17-59); Bilirubin,Total 1.9 mg/dL (0.2-1.3); Blood Urea Nitrogen 19 mg/dL (9-20); Calcium 9.4 mg/dL (8.4-10.2); Carbon Dioxide 29 mmol/L (22-30); Chloride 102 mmol/L (98-107); Creatine Kinase 1149 U/L (55-170); Estimated CRCL calculation 82 ml/min; Estimated Glomerular Filt Rate > 60; Glucose 103 mg/dL (65-110); Potassium 3.5 mmol/L (3.4-5.0); Sodium 139 mmol/L (137-145)
[2022-11-27 14:12] LABS: Appearance Urine Clear (Clear); Bacteria Urine None Seen /hpf; Bilirubin Urine Negative (Negative); Color Urine Dark Yellow (Yellow); Glucose Urine UA Negative (Negative); Ketones Urine Trace mg/dL (Negative); Leukocyte Esterase Ur Negative LEU/UL (Negative); Nitrate Urine Negative (Negative); Non Pathogenic Casts 0-2; Protein Urine 1+ mg/dL (Negative); Specific Grav Ur 1.025 (1.001-1.035); Squamous Epithelial Cell Urine None seen /hpf (Few); WBC Urine 0-5 /hpf; pH Urine 5.5 (5.0-9.0)
--- NOTE | 2022-11-27 14:26 | ED.FALL ---
HPI - Fall General Chief Complaint: Fall Stated Complaint: fall Time Seen by Provider: 11/27/22 13:02 Source: patient, family (daughter), EMS, RN notes reviewed and old records reviewed Mode of arrival: EMS Limitations: no limitations History of Present Illness HPI Narrative: This is a 67 year old male with history of his peripheral vascular disease, hypertension, hyperlipidemia who presents for evaluation of fall. PAtient states he fell yesterday and he was unable to get himself up. He states he slipped yesterday around noon and he fell onto his buttocks. He states he was unable to get to his phone. He reports chronic left leg weakness. He reports chronic low back pain but denies any new or worsening pain. He states he has had a cold for a few days. He denies chest pain or shortness of breath. He denies nausea, vomiting, diarrhea, or abdominal pain. Related Data Allergies Allergy/AdvReac Type Severity Reaction Status Date / Time No Known Allergies Allergy Verified 11/27/22 18:30 Review of Systems Constitutional: Constitutional: Denies weakness Cardiovascular: Cardiovascular: Denies syncope, Denies rapid heart rate, Denies irregular heart rhythm, Denies leg edema and Denies dyspnea Respiratory: Respiratory: Denies chest congestion, Denies hemoptysis, Denies excessive phlegm production and Denies dyspnea Gastrointestinal: Gastrointestinal: Denies abdominal pain, Denies hematochezia, Denies diarrhea and Denies vomiting Genitourinary: Genitourinary: Denies hematuria, Denies dysuria, Denies penile discharge and Denies testicular pain Musculoskeletal: Musculoskeletal: Reports back pain (chronic), Reports arthralgias, Denies joint swelling, Denies loss of height and Reports muscle weakness Neurologic: Denies syncope, Reports focal weakness (chronic leg weakness) and Denies weakness PMFSH Past Medical History Medical History Adult BMI 31.0-31.9 kg/sq m Aneurysm of left leg Blood clot in vein BMI 33.0-33.9,adult 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 Peripheral vascular disease Surgical History Surgical History Hx of vascular surgery Family History Family History Sibling COVID Carcinoma of colon Sibling Breast cancer Father Mother Diabetes mellitus Social History Social History Smoking packs per day: 0.6 Smoking cigarettes per day: 12.0 Years smoked: 50 Smoking pack-years: 30.00 Smoking status: Current every day smoker Tobacco type: cigarettes Second hand tobacco smoke exposure: No Alcohol intake: former Drinks per week: 12 Alcohol use details: beer Substance use: never Substance use type: does not use Lack of Transportation: No Lack of Food: Never True Current Housing: I Have Housing Concerned About Future Housing: No Difficulty Paying Gas/Electric Bills: No Difficulty Paying for Meds: No Currently Unemployed: No Education: Decline to Answer Difficulty w/ Childcare or Family Care: No Living arrangements: alone Occupation/Education: retired 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 Gender identity (if verbalized by the patient): Male Sexual Orientation (if Verbalized by the Patient): Straight or Heterosexual Spiritual care concerns: No Agree to blood products: Yes Exam Const: General: no acute distress and alert Orientation/consciousness: patient oriented x3 Other: generalized weakness, patient unable to roll himself or sit up on his own. HENMT: Head: normal to inspection Mouth: Yes Normal oral and palatal mucosa present and Yes lip normal Throat: posterior oropharynx normal and uvula midline Eyes: Conjunctivae: conjunctivae normal Pupils: Equ
[2022-11-27 14:28] LABS: Add Urine Microscopic? YES
[2022-11-27 15:15] LABS: SARS-CoV-2 RNA PCR Negative (Negative)
[2022-11-27] MEDS: SODIUM CHLORIDE 0.9% IV 1,000 ML 999 ML IV CONT (15:21)
--- NOTE | 2022-11-27 18:18 | ADMGEN ---
This patient, Ramy Dailey, was admitted to [facility] Surg Room 322-02. Patient/family oriented to hospital policies and general routines including ID bracelet, bed and alarms, visiting hours, pain management, procedures, bathroom and other care routines, personal items, smoking policy, room service/diet, and visiting hours. Information on how to activate the Rapid Response Team has been discussed. Patient/Family are encouraged to report perceived risks to care and to ask questions if they do not understand what they are told or what they should do.
--- NOTE | 2022-11-27 18:56 | PM.IMHP ---
H&P: HPI History of Present Illness Date/Time: 11/27/22 21:00 Chief Complaint: Fall. Narrative: This is a 67-year-old male with history of hypertension, hyperlipidemia, factor 5 Leiden, DVT, and vascular disease who presented to the emergency department via EMS for evaluation after a fall. He has cane and a walker at home but favors using the cane. Sometime around noon yesterday he slipped on something on the carpet and he fell down onto his buttocks and then onto his left shoulder. He tried to get himself up but was unable to do so and he lay on the floor until he was found by his nephew today. He denies head trauma and loss of consciousness in the fall and he reports no antecedent symptoms. With further questioning he does endorse having for 5 falls in the last year so due to poor balance and he thinks he may have neuropathy. He has 2 main complaints at the time my evaluation, 1 of pain in the left shoulder with forward flexion and the other is that of hallucinations. For instance he has been seeing his ex- in the room and he believes that he is seeing pictures of dolls hanging up in his hospital room. According to family members he has a history of hallucinations with urinary tract infections. Vital signs were stable on arrival to the ED. he was found to have a total CK of 1149 and he is being admitted in this setting for IV fluids given evidence of rhabdomyolysis. Brain CT did not show any acute findings but noted extensive chronic sinusitis which is not significantly changed since the prior scan. Currently he has no complaints and he denies headache, neck ache, fever, chills, sweats, focal weakness, paresthesias, facial droop, difficulty speaking and swallowing, chest pain, pleuritic pain, shortness a breath, cough, nausea, vomiting, diarrhea, and dysuria. He does not believe he has had any recent change in medications. He denies alcohol and substance use. Review of Systems Review of Systems: Twelve systems were reviewed and are negative except for as per HPI. [facility] Past Medical History Medical History (Updated 11/28/22 @ 00:20 by Regina Garcia PA-C) Adult BMI 31.0-31.9 kg/sq m Aneurysm of left leg Diastolic congestive heart failure 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 Peripheral vascular disease Surgical History Surgical History (Updated 11/28/22 @ 00:20 by Regina Garcia PA-C) History of bilateral cataract extraction History of inferior vena caval filter placement History of vascular surgery Left lower extremity. Family History Family History Sibling COVID Carcinoma of colon Sibling Breast cancer Father Mother Diabetes mellitus Social History Social History (Updated 11/28/22 @ 00:16 by Regina Garcia PA-C) Social History: Surrogate medical decision maker: Oneyda Rhodes, daughter. Code status: Full code. Smoking packs per day: 0.6 Smoking cigarettes per day: 12.0 Years smoked: 50 Smoking pack-years: 30.00 Smoking status: Current every day smoker Tobacco type: cigarettes Second hand tobacco smoke exposure: No Alcohol intake: former Drinks per week: 12 Alcohol use details: beer Substance use: never Substance use type: does not use Lack of Transportation: No Lack of Food: Never True Current Housing: I Have Housing Concerned About Future Housing: No Difficulty Paying Gas/Electric Bills: No Difficulty Paying for Meds: No Currently Unemployed: No Education: Decline to Answer Difficulty w/ Childcare or Family Care: No Living arrangements: alone Occupation/Education: retired Additional occupation/education comments: 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 Spiritual care concerns: No Agree to blood products: Yes Meds Home Medications and Allergies Home Medications Medication Ins
[2022-11-27] MEDS: SODIUM CHLORIDE 0.9% IV 1,000 ML 125 ML IV CONT (20:17)
[2022-11-28 01:05] LABS: Ammonia < 9 umol/L (9-30)
[2022-11-28] MEDS: SODIUM CHLORIDE 0.9% IV 1,000 ML 125 ML IV CONT ×3 (04:09→22:15)
[2022-11-28 04:40] VITALS: BP 139/91; PULSE 65; RESP 18; TEMP 36.3; O2SAT 96
--- NOTE | 2022-11-28 05:24 | PC.NURSE ---
low urine output this shift bladder scanning pt, only 200ml report out this shift. mucus reported by tech. called MD Cam to request straight cath and UA with C&S.
--- NOTE | 2022-11-28 05:27 | PC.NURSE ---
bladder scan 750 ml. order received for straight cath and send off UA for collection
--- NOTE | 2022-11-28 05:52 | PC.NURSE ---
drug screen and UA collected and sent to lab
--- NOTE | 2022-11-28 05:56 | PC.NURSE ---
800 ml out with straight cath this shift
[2022-11-28 06:07] LABS: Appearance Urine Clear (Clear); Bacteria Urine None Seen /hpf; Bilirubin Urine Negative (Negative); Blood Urine Negative (Negative); Color Urine Dark Yellow (Yellow); Glucose Urine UA Negative (Negative); Ketones Urine Negative (Negative); Leukocyte Esterase Ur Negative LEU/UL (NEGATIVE); Nitrate Urine Negative (Negative); Non Pathogenic Casts 0-2; Protein Urine 1+ mg/dL (Negative); RBC Urine 0-2 /hpf (0-2); Specific Grav Ur 1.026 (1.001-1.035); Squamous Epithelial Cell Urine None seen /hpf (Few); WBC Urine 0-5 /hpf (0-3); pH Urine 5.5 (5.0-9.0)
[2022-11-28 06:28] LABS: Amphetamine Screen Urine Negative (Negative); Barbiturate Screen Urine Negative (Negative); Benzodiazepines Screen Urine Negative (Negative); Cannabinoid Screen Urine Negative (Negative); Cocaine Screen Urine Negative (Negative); Methadone Screen Urine Negative (Negative); Opiate Screen Urine Negative (Negative); Phencyclidine Screen Urine Negative (Negative)
[2022-11-28 06:36] LABS: Basophils Percent Auto 0.5 % (0.2-1.2); Eosinophils Absolute Auto 0.1 K/mm3 (0-0.3); Eosinophils Percent Auto 1.9 % (0-4.4); Hematocrit 38.6 % (42.0-52.0); Hemoglobin 12.6 g/dL (14.0-18.0); Immature Granulocyte Absolute 0.03 K/mm3 (0.00-0.031); Immature Granulocyte Percent A 0.5 % (0-0.5); Lymphocytes Absolute Auto 1.23 K/mm3 (0.9-3.2); Lymphocytes Percent Auto 20.7 % (18.3-44.2); Mean Corpuscular HGB Conc 32.6 g/dl (32-36); Mean Corpuscular Hemoglobin 31.6 pg (26-34); Mean Corpuscular Volume 96.7 fl (80-100); Mean Platelet Volume 9.3 fl (7.4-10.4); Monocytes Absolute Auto 0.6 K/mm3 (0.1-0.6); Monocytes Percent Auto 10.8 % (2.6-8.5); Neutrophils Absolute Auto 3.9 K/mm3 (1.3-6.7); Neutrophils Percent Auto 65.6 % (45.5-73.1); Platelet Count Result 202 k/mm3 (150-375); Red Blood Count 3.99 M/mm3 (4.6-6.20); Red Cell Distribution Width 13.2 % (11.5-14.5); White Blood Count 5.9 K/mm3 (4.5-10.0)
[2022-11-28 06:49] LABS: Alanine Aminotransferase 23 U/L (6-50); Albumin Level 3.5 g/dL (3.5-5.1); Alkaline Phosphatase 59 U/L (38-126); Anion Gap 7 mmol/L (8-16); Aspartate Amino Transferase 44 U/L (17-59); Bilirubin,Total 1.1 mg/dL (0.2-1.3); Blood Urea Nitrogen 15 mg/dL (9-20); Calcium 8.3 mg/dL (8.4-10.2); Carbon Dioxide 26 mmol/L (22-30); Chloride 105 mmol/L (98-107); Creatine Kinase 1171 U/L (55-170); Estimated CRCL calculation 91 ml/min; Estimated Glomerular Filt Rate > 60; Glucose 94 mg/dL (65-110); Magnesium 1.9 mg/dL (1.6-2.3); Potassium 3.3 mmol/L (3.4-5.0); Sodium 138 mmol/L (137-145)
--- NOTE | 2022-11-28 07:02 | PC.NURSE ---
called MD Valero for neurology consult message left
[2022-11-28 08:00] VITALS: RESP 18; O2SAT 96
[2022-11-28 08:40] LABS: Add Urine Microscopic? YES
--- NOTE | 2022-11-28 08:56 | WPDNEURCNPN ---
Assessment and Plan Assessment and plan (1) Weakness: Code(s): R53.1 - Weakness Status: Acute (2) Cervical myelopathy: Code(s): G95.9 - Disease of spinal cord, unspecified Status: Acute Plan History of fall with total creatinine kinase 1171 probably related to rhabdomyolysis, toxicology screen is negative, x-rays left shoulder only with left glenohumeral joint osteoarthritis and the CT scan of the head with extensive chronic sinusitis changes but no acute intracranial bleed or space-occupying lesion except the chronic vessel ischemic changes, patient will benefit from the nerve conduction studies as an outpatient. And for the time MRI of cervical spine is needed to rule out the possibility of cervical spondylosis with myelopathy Consult date: 11/28/22 HPI: Ramy Dailey is a 67 year old male Admitted to the hospital through the emergency room where he presented on November 27, 2022 with history of fall day before coming to the ER and describing that he slept and around noon when up he fell onto his buttocks and subsequently was unable to get up.has been experiencing chronic left lower extremity weakness in addition to chronic low back pain but he gave no history of any other new problem he is not allergic to any medication, does have ongoing history of years smoked 50, smoking pack years 30 ,currently everyday smoker and h/o being 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 12 drinks per week , history of DVT in adulthood, history of aneurysm of the left lower extremity and also factor 5 deficiency. Review of Systems Review of Systems: All systems reviewed & are unremarkable except as noted in HPI and below PMFSH Past Medical History Medical History Adult BMI 31.0-31.9 kg/sq m Aneurysm of left leg Diastolic congestive heart failure 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 Peripheral vascular disease Surgical History Surgical History History of bilateral cataract extraction History of inferior vena caval filter placement History of vascular surgery Left lower extremity. Family History Family History Sibling COVID Carcinoma of colon Sibling Breast cancer Father Mother Diabetes mellitus Social History Social History Social History: Surrogate medical decision maker: Oneyda Rhodes, daughter. Code status: Full code. Smoking packs per day: 0.6 Smoking cigarettes per day: 12.0 Years smoked: 50 Smoking pack-years: 30.00 Smoking status: Current every day smoker Tobacco type: cigarettes Second hand tobacco smoke exposure: No Alcohol intake: former Drinks per week: 12 Alcohol use details: beer Substance use: never Substance use type: does not use Lack of Transportation: No Lack of Food: Never True Current Housing: I Have Housing Concerned About Future Housing: No Difficulty Paying Gas/Electric Bills: No Difficulty Paying for Meds: No Currently Unemployed: No Education: Decline to Answer Difficulty w/ Childcare or Family Care: No Living arrangements: alone Occupation/Education: retired Additional occupation/education comments: 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 Spiritual care concerns: No Agree to blood products: Yes Meds Home Medications and Allergies Home Medications Medication Instructions Recorded Confirmed Type cholecalciferol (vitamin D3) 25 1,000 unit PO DAILY #90 tabs 08/17/22 11/27/22 Rx mcg (1,000 unit) tablet (Vitamin D3) atorvastatin 20 mg tablet 20 mg PO HS #90 tabs 09/03/22 11/27/22 Rx losartan 50 mg-hydrochlorothiazide 1 tablet PO DAILY #90 tabs 09/03/22 11/27/22 Rx 12.5 mg tablet celecoxib 50 mg capsule (Celebrex) 50 mg PO BID
--- NOTE | 2022-11-28 09:25 | PM.IMPN ---
Progress Note: A&P Assessment and Plan (1) Fall from ground level: Code(s): W18.30XA - Fall on same level, unspecified, initial encounter Status: Acute (2) Rhabdomyolysis: Code(s): M62.82 - Rhabdomyolysis Status: Acute (3) Weakness: Code(s): R53.1 - Weakness Status: Acute (4) Hallucinations: Code(s): R44.3 - Hallucinations, unspecified Status: Acute (5) Diastolic congestive heart failure: Code(s): I50.30 - Unspecified diastolic (congestive) heart failure Status: Acute (6) Hypertension: Qualifiers: Hypertension type: primary hypertension Qualified Code(s): I10 - Essential (primary) hypertension Code(s): I10 - Essential (primary) hypertension Status: Chronic Plan 11/28/2022: the patient presented to the emergency department via EMS from home for evaluation after a fall and leading the ground for a prolonged period time. Laboratory evaluation reveals rhabdomyolysis with elevated CK level. Brain CT did not show any acute finding. Patient does have history of recurrent falls. Patient also reported to be having hallucinations. Neurology has been consulted. Chronic left leg weakness with chronic low back pain. History of DVT factor 5 Leiden deficiency peripheral vascular disease hypertension hyperlipidemia. Chronic diastolic dysfunction cOVID negative UA negative chest x-ray with no acute cardiopulmonary process. WBC count normal. Mildly hypokalemic will be replacing. Continue IV hydration. B12 TSH normal ammonia negative. Urine drug screen negative. Shoulder x-ray with mild left glenohumeral joint osteoarthritis. DVT prophylaxis with Xarelto atorvastatin losartan hydrochlorothiazide. He has left lower extremity weakness which is chronic had an MRI of the low back done and is going to COPD management end of this month. Neurology has been consulted and recommends for MRI cervical spine. Will order MRI cervical spine. x-ray lumbar spine with severe lumbar spondylosis. MRI lumbar spine 10/10/2022: Moderate degenerate disc disease and spondylosis. Multiple level disc osteophyte complex resulting thecal sac compression foraminal stenosis and has a disc. Borderline spinal canal stenosis at L2-2 3 and L3-L4 mild spinal canal stenosis at L4-L5 minimal dorsal lumbar scoliosis. Subjective Date/time seen: 11/28/22 09:25 Interval history: Feels better. Been falling quite often. Presented back with fall again. History reviewed also had some hallucinations wants to go back. Review of Systems Review of Systems: All systems reviewed & are unremarkable except as noted in HPI and below Exam Narrative: General: Chronically ill-appearing male lying in bed not in acute distress HEENT: PERRL, EOMI. Sclera anicteric. Tacky mucous membranes. Neck: Supple. No obvious carotid bruits. Respiratory: Respirations are nonlabored and lungs are clear to auscultation. Cardiovascular: Regular rate and rhythm with S1-S2. Gastrointestinal: Abdomen is soft, nontender, and nondistended with positive bowel sounds. Skin: Warm and dry. Chronic hyperpigmentation of the lower legs. Extremities: No cyanosis or clubbing. Trace ronen ankle edema bilaterally. Radial and pedal pulses intact. Musculoskeletal: Patient reports discomfort over the left anterior shoulder and left bicep with active and passive range of motion. Neurological: Alert and oriented x4. Cranial nerves 2-12 are grossly intact. Generalized weakness no facial asymmetry speech is clear Psychiatric: Pleasant and cooperative. Objective Data Vital Signs Vital Signs: Vital Signs - 24 hr 11/27/22 11:45 11/27/22 11:51 11/27/22 12:08 Temperature 97.9 F Pulse Rate 71 Respiratory Rate 14 17 14 Blood Pressure 124/75 Pulse Oximetry 99 Oxygen Delivery Room Air 11/27/22 12:15 11/27/22 12:16 11/27/22 12:30 Temperature Pulse Rate 62 61 60 Respiratory Rate 14 13 15 Blood Pressure
[2022-11-28] MEDS: CHOLECALCIFEROL 1,000 UNITS TABLET 1000 UNITS PO (12:31)
[2022-11-28] MEDS: LOSARTAN POTASSIUM 50 MG TABLET PO (12:31)
[2022-11-28] MEDS: hydroCHLOROthiazide 12.5 MG CAPSULE PO (12:32)
[2022-11-28 13:51] VITALS: BP 106/66; PULSE 63; RESP 18; TEMP 36.1; O2SAT 94
--- NOTE | 2022-11-28 15:30 | PC.NURSE ---
Bladder scan >500 Dr Mann notified.
[2022-11-28] MEDS: LORazepam (*CRX) 0.5 MG TABLET PO (15:35)
--- NOTE | 2022-11-28 16:17 | PCPTNOTE ---
On 11/28/22, the student, MILAN Santiago, provided care and completed [facility] documentation on this patient. I have reviewed the student's documentation and agree with the findings.
[2022-11-28] MEDS: RIVAROXABAN 20 MG TABLET PO (18:09)
[2022-11-28] MEDS: ATORVASTATIN 20 MG TABLET PO (20:14)
[2022-11-28 22:00] VITALS: BP 104/53; PULSE 73; RESP 14; TEMP 36.8; O2SAT 99
[2022-11-29 06:00] VITALS: BP 135/70; PULSE 59; RESP 16; TEMP 36.7; O2SAT 96
[2022-11-29] MEDS: SODIUM CHLORIDE 0.9% IV 1,000 ML 125 ML IV CONT ×3 (06:33→21:45)
[2022-11-29 06:42] LABS: Basophils Percent Auto 0.5 % (0.2-1.2); Eosinophils Absolute Auto 0.1 K/mm3 (0-0.3); Eosinophils Percent Auto 1.8 % (0-4.4); Hematocrit 39.4 % (42.0-52.0); Hemoglobin 12.7 g/dL (14.0-18.0); Immature Granulocyte Absolute 0.03 K/mm3 (0.00-0.031); Immature Granulocyte Percent A 0.5 % (0-0.5); Lymphocytes Absolute Auto 1.04 K/mm3 (0.9-3.2); Lymphocytes Percent Auto 17.2 % (18.3-44.2); Mean Corpuscular HGB Conc 32.2 g/dl (32-36); Mean Corpuscular Hemoglobin 31.2 pg (26-34); Mean Corpuscular Volume 96.8 fl (80-100); Mean Platelet Volume 9.4 fl (7.4-10.4); Monocytes Absolute Auto 0.6 K/mm3 (0.1-0.6); Monocytes Percent Auto 10.6 % (2.6-8.5); Neutrophils Absolute Auto 4.2 K/mm3 (1.3-6.7); Neutrophils Percent Auto 69.4 % (45.5-73.1); Platelet Count Result 174 k/mm3 (150-375); Red Blood Count 4.07 M/mm3 (4.6-6.20); Red Cell Distribution Width 13.4 % (11.5-14.5); White Blood Count 6.1 K/mm3 (4.5-10.0)
[2022-11-29 06:50] LABS: Alanine Aminotransferase 21 U/L (6-50); Albumin Level 3.4 g/dL (3.5-5.1); Alkaline Phosphatase 55 U/L (38-126); Anion Gap 4 mmol/L (8-16); Aspartate Amino Transferase 33 U/L (17-59); Bilirubin,Total 0.9 mg/dL (0.2-1.3); Blood Urea Nitrogen 11 mg/dL (9-20); Calcium 8.4 mg/dL (8.4-10.2); Carbon Dioxide 26 mmol/L (22-30); Chloride 107 mmol/L (98-107); Creatine Kinase 517 U/L (55-170); Estimated CRCL calculation 91 ml/min; Estimated Glomerular Filt Rate > 60; Glucose 94 mg/dL (65-110); Magnesium 1.9 mg/dL (1.6-2.3); Potassium 3.4 mmol/L (3.4-5.0); Sodium 137 mmol/L (137-145)
[2022-11-29 08:00] VITALS: BP 118/81; PULSE 70; RESP 14; TEMP 36.6; O2SAT 96
[2022-11-29] MEDS: hydroCHLOROthiazide 12.5 MG CAPSULE PO (08:44)
[2022-11-29] MEDS: LOSARTAN POTASSIUM 50 MG TABLET PO (08:44)
[2022-11-29] MEDS: CHOLECALCIFEROL 1,000 UNITS TABLET 1000 UNITS PO (08:44)
[2022-11-29 12:09] VITALS: BP 120/96; PULSE 74; RESP 14; TEMP 36.6; O2SAT 95
--- NOTE | 2022-11-29 13:48 | PCPTNOTE ---
On 11/29/22, the student, LUBNA Cloud, provided care and completed [facility] documentation on this patient. I have reviewed the student's documentation and agree with the findings.
[2022-11-29 14:00] VITALS: BP 106/65; PULSE 64; RESP 14; TEMP 37; O2SAT 96
--- NOTE | 2022-11-29 14:44 | PM.IMPN ---
Progress Note: A&P Assessment and Plan (1) Fall from ground level: Code(s): W18.30XA - Fall on same level, unspecified, initial encounter Status: Acute Assessment and Plan: Patient presented to ED on 11/27/2022 for evaluation of fall. Patient had tripped over a broom in his house and was unable to get up. Was found to have [place] of [address] negative for acute findings Scheduled to start pain management on 12/05/2022 for low back pain. PT and OT evaluation ordered (2) Rhabdomyolysis: Code(s): M62.82 - Rhabdomyolysis Status: Acute Assessment and Plan: Patient found to have elevated CK after a fall. IV fluids initiated. Trend CK (3) Weakness: Code(s): R53.1 - Weakness Status: Acute Assessment and Plan: Patient has chronic left lower extremity weakness in addition to chronic low back pain. Patient refuses acute rehab/SNF He is working with PT and OT [facility]. (4) Hallucinations: Code(s): R44.3 - Hallucinations, unspecified Status: Acute Assessment and Plan: patient has been having hallucinations of unknown etiology. No signs of underlying infection, electrolytes are within normal limits. Urine drug screen negative. TSH, B12 and ammonia level normal. Neurology consulted and recommending MRI of cervical spine. (5) Hypertension: Qualifiers: Hypertension type: primary hypertension Qualified Code(s): I10 - Essential (primary) hypertension Code(s): I10 - Essential (primary) hypertension Status: Chronic Assessment and Plan: monitor blood pressures. (6) Cervical spondylosis: Code(s): M47.812 - Spondylosis without myelopathy or radiculopathy, cervical region Status: Acute Assessment and Plan: MRI of cervical spine revealing severe cervical spondylosis. Neurosurgery consulted. Patient is due to see pain management for his low back next week. Patient did have recent MRI of lumbar spine on 10/10/2022: Moderate degenerate disc disease and spondylosis. Multiple level disc osteophyte complex resulting thecal sac compress. Subjective Date/time seen: 11/29/22 14:44 Interval history: Patient resting comfortably and up to chair when have the room. He states that he is getting more fish strength back. He does have issues with back pain and he is starting pain management for this soon. I would like Neurosurgery to see him due to the MRI results of his neck. His CK continues to trend down. He should be able to discharge tomorrow if he remains stable. Review of Systems Review of Systems: All systems reviewed & are unremarkable except as noted in HPI and below Exam Narrative: GENERAL: Comfortable, no acute distress HENMT: moist mucous membranes EYES: EOM intact b/l NECK: no lymphadenopathy RESPIRATORY: clear to auscultation CARDIO: RRR GI: soft, nontender, bowel sounds present SKIN: no rashes EXTREMITIES: no edema, redness or tenderness Objective Data Vital Signs Vital Signs: Vital Signs - 24 hr 11/28/22 22:00 11/29/22 06:00 11/29/22 08:00 Temperature 98.3 F 98.1 F Pulse Rate 73 59 L Respiratory Rate 14 16 Blood Pressure 104/53 L 135/70 Pulse Oximetry 99 96 96 Oxygen Delivery Room Air 11/29/22 08:00 11/29/22 12:09 11/29/22 14:00 Temperature 97.9 F 97.9 F 98.6 F Pulse Rate 70 74 64 Respiratory Rate 14 14 14 Blood Pressure 118/81 120/96 H 106/65 Pulse Oximetry 96 95 96 Oxygen Delivery Intake/Output Intake/Output: Intake & Output 11/26/22 11/27/22 11/28/22 11/29/22 23:59 23:59 23:59 23:59 Intake Total 3956 2600 Output Total 1290 1350 Balance 2666 1250 Meds/Results Medications: Active Medications Generic Name Dose Route Start Last Admin Trade Name Freq PRN Reason Stop Dose Admin Acetaminophen 650 mg 11/28/22 00:24 Acetaminophen 325 Mg Tablet PO Q6H PRN Mild Pain (1-3) or Fever A
[2022-11-29] MEDS: SILVERGEL (ELTA) 45 ML 1 APPLIC TOPICAL (16:36)
--- NOTE | 2022-11-29 16:36 | WPDNEUROSGCN ---
Assessment and Plan Assessment and plan (1) Cervical spondylosis: Code(s): M47.812 - Spondylosis without myelopathy or radiculopathy, cervical region Status: Acute Plan Mr. Dailey is a 67-year-old male with multiple medical comorbidities including DVT on Xarelto who presented to the hospital after a mechanical fall 2 days ago. He initially reported some weakness but now states that he is back to his neurologic baseline. He denies any routine issues with neck pain radiculopathy, paresthesias in his arms, or myelopathic symptoms. MRI cervical spine does show diffuse cervical spondylosis and mild to moderate stenosis of his spinal canal. However, he does not have any objective findings of myelopathy, and I do not see any high-grade cervical stenosis for which I would recommend any surgical intervention at this time. I would recommend continued treatment with physical therapy. He can see the pain management physician next week as scheduled for his lower back. Consult date: 11/29/22 HPI: Ramy Dailey is a 67 year old male With history of hypertension, hyperlipidemia, DVT, factor 5 Leiden, and peripheral vascular disease who presented to the ER 2 days ago after a fall at home. He tripped over a dust kolb and braced himself with his arms, injuring his shoulders and his wrist in the process. He was unable to get himself up and was found by family on the floor. When he initially came into the hospital, he felt weakness which he notices is because of the pain in his shoulders from bracing himself in the fall. MRI cervical spine was obtained because of this which showed severe spondylosis for which Neurosurgery was consulted. Today, he feels that he is essentially back to his baseline. His pain is much better, and he feels that his strength is back to baseline. He was able to walk in the halls with therapy with a walker. He states that, normally at home, he walks with either a cane or a walker. He denies having issues with neck pain, radicular pain, or paresthesias in his arms prior to this hospitalization. He has some urinary issues from BPH but nothing that his significantly changed recently. He has chronic issues with lower back pain and is scheduled to see a pain management physician next week in [place]. Review of Systems Review of Systems: All systems reviewed & are unremarkable except as noted in HPI and below PMFSH Past Medical History Medical History Adult BMI 31.0-31.9 kg/sq m Aneurysm of left leg Diastolic congestive heart failure 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 Peripheral vascular disease Surgical History Surgical History History of bilateral cataract extraction History of inferior vena caval filter placement History of vascular surgery Left lower extremity. Family History Family History Sibling COVID Carcinoma of colon Sibling Breast cancer Father Mother Diabetes mellitus Social History Social History Social History: Surrogate medical decision maker: Oneyda Rhodes, daughter. Code status: Full code. Smoking packs per day: 0.6 Smoking cigarettes per day: 12.0 Years smoked: 50 Smoking pack-years: 30.00 Smoking status: Current every day smoker Tobacco type: cigarettes Second hand tobacco smoke exposure: No Alcohol intake: former Drinks per week: 12 Alcohol use details: beer Substance use: never Substance use type: does not use Lack of Transportation: No Lack of Food: Never True Current Housing: I Have Housing Concerned About Future Housing: No Difficulty Paying Gas/Electric Bills: No Difficulty Paying for Meds: No Currently Unemployed: No Education: Decline to Answer Difficulty w/ C
[2022-11-29] MEDS: RIVAROXABAN 20 MG TABLET PO (16:38)
[2022-11-29 20:00] VITALS: PULSE 71; RESP 16; O2SAT 97
[2022-11-29] MEDS: ATORVASTATIN 20 MG TABLET PO (20:36)
[2022-11-29 21:48] VITALS: BP 136/80; PULSE 71; RESP 16; TEMP 36; O2SAT 97
[2022-11-30 04:00] VITALS: BP 148/95
[2022-11-30] MEDS: SODIUM CHLORIDE 0.9% IV 1,000 ML 125 ML IV CONT ×2 (05:57→08:49)
[2022-11-30 06:00] VITALS: BP 130/85; PULSE 56; RESP 16; TEMP 35.9; O2SAT 97
[2022-11-30 06:05] VITALS: BP 150/86
[2022-11-30 06:37] LABS: Basophils Absolute Auto 0.1 K/mm3 (0.0-0.1); Basophils Percent Auto 0.9 % (0.2-1.2); Eosinophils Absolute Auto 0.2 K/mm3 (0-0.3); Hematocrit 38.3 % (42.0-52.0); Hemoglobin 12.6 g/dL (14.0-18.0); Immature Granulocyte Absolute 0.03 K/mm3 (0.00-0.031); Immature Granulocyte Percent A 0.5 % (0-0.5); Lymphocytes Absolute Auto 1.19 K/mm3 (0.9-3.2); Lymphocytes Percent Auto 20.9 % (18.3-44.2); Mean Corpuscular HGB Conc 32.9 g/dl (32-36); Mean Corpuscular Hemoglobin 32.1 pg (26-34); Mean Corpuscular Volume 97.5 fl (80-100); Mean Platelet Volume 9.5 fl (7.4-10.4); Monocytes Absolute Auto 0.6 K/mm3 (0.1-0.6); Monocytes Percent Auto 11.1 % (2.6-8.5); Neutrophils Absolute Auto 3.6 K/mm3 (1.3-6.7); Neutrophils Percent Auto 63.6 % (45.5-73.1); Platelet Count Result 186 k/mm3 (150-375); Red Blood Count 3.93 M/mm3 (4.6-6.20); Red Cell Distribution Width 13.3 % (11.5-14.5); White Blood Count 5.7 K/mm3 (4.5-10.0)
[2022-11-30 06:45] LABS: Alanine Aminotransferase 21 U/L (6-50); Albumin Level 3.6 g/dL (3.5-5.1); Alkaline Phosphatase 59 U/L (38-126); Anion Gap 5 mmol/L (8-16); Aspartate Amino Transferase 26 U/L (17-59); Bilirubin,Total 0.8 mg/dL (0.2-1.3); Blood Urea Nitrogen 10 mg/dL (9-20); Calcium 8.5 mg/dL (8.4-10.2); Carbon Dioxide 24 mmol/L (22-30); Chloride 108 mmol/L (98-107); Estimated CRCL calculation 90 ml/min; Estimated Glomerular Filt Rate > 60; Glucose 99 mg/dL (65-110); Potassium 3.5 mmol/L (3.4-5.0); Sodium 137 mmol/L (137-145)
[2022-11-30] MEDS: SILVERGEL (ELTA) 45 ML 1 APPLIC TOPICAL (08:49)
[2022-11-30] MEDS: TAMSULOSIN HCL 0.4 MG CAPSULE PO (08:50)
[2022-11-30] MEDS: LOSARTAN POTASSIUM 50 MG TABLET PO (08:50)
[2022-11-30] MEDS: CHOLECALCIFEROL 1,000 UNITS TABLET 1000 UNITS PO (08:50)
[2022-11-30] MEDS: hydroCHLOROthiazide 12.5 MG CAPSULE PO (08:50)
[2022-11-30 09:08] LABS: Creatine Kinase 264 U/L (55-170)
--- NOTE | 2022-11-30 10:35 | PCPTNOTE ---
On 11/30/22, the student, Ale Phan, provided care and completed [facility] documentation on this patient. I have reviewed the student's documentation and agree with the findings.
--- NOTE | 2022-11-30 11:10 | WPDNEUROPN ---
Subjective Date/time seen: 11/30/22 11:10 Interval history: seen by the neurosurgical service as well for the cervical spondylosis with no evidence of cervical myelopathy, patient is awake alert cooperative ambulating with physical therapy though rehab recommended but he does wants to go home no further neurological investigations warranted. Objective Data Vital Signs Vital Signs: Vital Signs - 24 hr 11/29/22 12:09 11/29/22 14:00 11/29/22 21:48 Temperature 36.6 C 37 C 36.0 C L Pulse Rate 74 64 71 Respiratory Rate 14 14 16 Blood Pressure 120/96 H 106/65 136/80 Pulse Oximetry 95 96 97 Oxygen Delivery 11/29/22 20:00 11/30/22 06:00 11/30/22 06:05 Temperature 35.9 C L Pulse Rate 71 56 L Respiratory Rate 16 16 Blood Pressure 130/85 150/86 H Pulse Oximetry 97 97 Oxygen Delivery Room Air 11/30/22 04:00 Temperature Pulse Rate Respiratory Rate Blood Pressure 148/95 H Pulse Oximetry Oxygen Delivery Intake/Output Intake/Output: Intake & Output 11/27/22 11/28/22 11/29/22 11/30/22 23:59 23:59 23:59 23:59 Intake Total 3956 4590 2450 Output Total 1290 2850 2000 Balance 2666 4290 450 Meds/Results Medications: Active Medications Generic Name Dose Route Start Last Admin Trade Name Freq PRN Reason Stop Dose Admin Acetaminophen 650 mg 11/28/22 00:24 Acetaminophen 325 Mg Tablet PO Q6H PRN Mild Pain (1-3) or Fever Atorvastatin Calcium 20 mg 11/28/22 21:00 11/29/22 20:36 Atorvastatin 20 Mg Tablet PO 20 mg HS JARED Administration Hydrochlorothiazide 12.5 mg 11/28/22 09:35 11/30/22 08:50 Hydrochlorothiazide 12.5 Mg Capsule PO 12/29/22 09:34 12.5 mg DAILY JARED Administration Sodium Chloride 1,000 mls @ 125 mls/hr 11/27/22 16:30 11/30/22 08:49 Normal Saline Iv IV CONT 125 mls/hr .Q8H JARED Administration Losartan Potassium 50 mg 11/28/22 09:00 11/30/22 08:50 Losartan Potassium 50 Mg Tablet PO 12/29/22 08:59 50 mg DAILY JARED Administration Miscellaneous Information 0 each 11/28/22 00:01 Celebrex 50mg Is Nonformulary. We Carry 100 Or 200mg Capsules. Please Also Clarify Pain Sc XX 12/28/22 00:00 CLARIFY JARED Non-Formulary Medication 50 mg 11/28/22 09:31 Celecoxib [Celebrex] PO BID PRN pain Rivaroxaban 20 mg 11/28/22 17:00 11/29/22 16:38 Rivaroxaban 20 Mg Tablet PO 20 mg DAILY@1700 JARED Administration Silver Nitrate 1 applic 11/29/22 09:00 11/30/22 08:49 Silvergel (Elta) 45 Ml TOPICAL 1 applic DAILY JARED Administration Tamsulosin HCl 0.4 mg 11/30/22 09:00 11/30/22 08:50 Tamsulosin Hcl 0.4 Mg Capsule PO 0.4 mg QAM JARED Administration Vitamin D 1,000 units 11/28/22 09:35 11/30/22 08:50 Cholecalciferol 1,000 Units Tablet PO 1,000 units DAILY JARED Administration Radiology Results: ITS Impressions Head CT 11/27/22 14:16 IMPRESSION: Extensive chronic sinusitis, not significantly changed since 10/28/2022 No acute intracranial finding or skull fracture Cerebral atherosclerosis and chronic small vessel ischemic changes of the cerebral white matter Chest X-Ray 11/27/22 14:20 IMPRESSION: No acute cardiopulmonary process. Humerus X-Ray 11/28/22 09:26 IMPRESSION: 1. No fracture. Shoulder X-Ray 11/28/22 09:27 IMPRESSION: 1. Mild left glenohumeral joint osteoarthritis. Cervical Spine MRI 11/28/22 16:34 IMPRESSION: 1. Severe cervical spondylosis. Labs Labs: Laboratory Results - last 24 hr 11/30/22 06:14 WBC 5.7 RBC 3.93 L Hgb 12.6 L Hct 38.3 L MCV 97.5 MCH 32.1 MCHC 32.9 RDW 13.3 Plt Count 186 MPV 9.5 Immature Gran % (Auto) 0.5 Neut % (Auto) 63.6 Lymph % (Auto) 20.9 [place] % (Auto) 11.1 H Eos % (Auto) 3.0 Baso % (Auto) 0.9 Lymph # (Auto) 1.19 [place] # (Auto) 0.6 Eos # (Auto) 0.2 Baso # (Auto) 0.1 Abs Immat Gran (auto) 0.03 Absolute Neuts (auto) 3.6 Absolute Nucleated RBC 0.0 Nuclea
--- NOTE | 2022-11-30 12:30 | PM.DS ---
DS: Admitting Diagnosis Discharge Date 11/30/22 Admitting Diagnosis Fall, rhabdomyolysis DS: Discharge Diagnosis Discharge Diagnosis (1) Fall from ground level: Code(s): W18.30XA - Fall on same level, unspecified, initial encounter Status: Acute Assessment and Plan: Patient presented to ED on 11/27/2022 for evaluation of fall. Patient had tripped over a broom in his house and was unable to get up. Was found to have a [place] of [address] negative for acute findings Scheduled to start pain management on 12/05/2022 for low back pain. PT and OT evaluation ordered (2) Rhabdomyolysis: Code(s): M62.82 - Rhabdomyolysis Status: Acute Assessment and Plan: Patient found to have elevated CK after a fall. IV fluids initiated. Trend CK (3) Weakness: Code(s): R53.1 - Weakness Status: Acute Assessment and Plan: Patient has chronic left lower extremity weakness in addition to chronic low back pain. Patient refuses acute rehab/SNF He is working with PT and OT [facility]. (4) Hallucinations: Code(s): R44.3 - Hallucinations, unspecified Status: Acute Assessment and Plan: patient has been having hallucinations of unknown etiology. No signs of underlying infection, electrolytes are within normal limits. Urine drug screen negative. TSH, B12 and ammonia level normal. Neurology consulted and recommending MRI of cervical spine which revealed severe cervical spondylosis (5) Hypertension: Qualifiers: Hypertension type: primary hypertension Qualified Code(s): I10 - Essential (primary) hypertension Code(s): I10 - Essential (primary) hypertension Status: Chronic Assessment and Plan: monitor blood pressures. (6) Cervical spondylosis: Code(s): M47.812 - Spondylosis without myelopathy or radiculopathy, cervical region Status: Acute Assessment and Plan: MRI of cervical spine revealing severe cervical spondylosis. Neurosurgery consulted. Patient is due to see pain management for his low back next week. Patient did have recent MRI of lumbar spine on 10/10/2022: Moderate degenerate disc disease and spondylosis. Multiple level disc osteophyte complex resulting thecal sac compress. DS: Summary Hospital Course Hospital Course: This is a 62-year-old male with a history of hypertension, hyperlipidemia, factor 5 laden, DVT and vascular disease who presented to the ED on 11/27/2022 for evaluation after a fall. Patient had been walking in his home and tripped over a broom stick lying on the ground. He has difficulty getting up as well as going from a laying to sitting to standing position. He uses a cane around his house. He was unable to get himself up off the floor and he was found by his nephew on the day of presentation. Patient has a history of frequent falls and states that he had approximately 5 falls in the last year due to poor balance. He was found to have a CK of 1149 and was admitted for IV fluids. While in the ED he admitted to having hallucinations. His vital signs were stable as well as his hemoglobin, hematocrit and white blood cell count. Urine was negative for UTI. Brain CT did not show any acute findings. Neurology was consulted for hallucinations and they recommended cervical neck MRI which showed chronic cervical spondylosis. Patient planned for pain management evaluation in approximately 1 week is advised by Neurosurgery that he continue with this plan and surgery would not be needed on the cervical spine. workup for hallucinations was negative. He continues IV fluids and CK trended down during his stay. He worked with PT and OT during this time. he refused rehab/ SNF and stated that he would return home after this hospital stay. Rehab was offered multiple times the patient but he denied. His labs and vital signs are stable and he is medically clear for discharge. Time Spent
== END 2022-11-30 14:20 | disposition home health service (06) | DRG 558 ==
LOC: ANHED 13:02 → ANH3MEDSUR 17:09
PROVIDERS: Internal Medicine; Physician Assistant; Admitting Provider Chiropractor; Emergency Provider General Practice; PCP Family Medicine; Visit Provider Internal Medicine Critical Care Medicine
DX: M62.82 Rhabdomyolysis (principal); D68.2 Hereditary deficiency of other clotting factors; I50.32 Chronic diastolic (congestive) heart failure; W18.09XA Striking against other object with subsequent fall, initial encounter; I11.0 Hypertensive heart disease with heart failure; E78.5 Hyperlipidemia, unspecified; F17.210 Nicotine dependence, cigarettes, uncomplicated; G89.29 Other chronic pain; I73.9 Peripheral vascular disease, unspecified; J32.9 Chronic sinusitis, unspecified; M19.012 Primary osteoarthritis, left shoulder; M47.816 Spondylosis without myelopathy or radiculopathy, lumbar region; M47.812 Spondylosis without myelopathy or radiculopathy, cervical region; M54.50 Low back pain, unspecified; R53.1 Weakness; R29.6 Repeated falls; R44.1 Visual hallucinations; Z20.822 Contact with and (suspected) exposure to COVID-19; Z98.41 Cataract extraction status, right eye; Z98.42 Cataract extraction status, left eye; Z86.718 Personal history of other venous thrombosis and embolism; Z95.828 Presence of other vascular implants and grafts; Z79.01 Long term (current) use of anticoagulants
CPT/HCPCS: 36415; 70450; 71045; 72141; 73030; 73060; 80053; 80307; 81001; 82140; 82550; 82607; 83735; 84443; 85025; 85610; 85730; 87635; 93005; 96361; 97110; 97116; 97161; 97165; 97530; 97535; 99285; A9270; G0378; J7030

== ENCOUNTER 2023-01-21 18:22 | Observation (INO) | payer MEDICARE, SELFPAY ==
--- NOTE | ~2023-01-21 | MR_ITS ---
EXAMINATION: MR lumbar spine wo/w con DATE: 01/22/2023 17:00 INDICATION: Bilateral lower extremity weakness. TECHNIQUE: Magnetic resonance imaging (MRI) of the lumbar spine was performed without and with 20 mL MultiHance intravenous contrast. COMPARISON: Lumbar spine radiographs 09/22/2022 FINDINGS: There is 11 degrees dextroscoliosis of thoracolumbar spine. S1 is a transitional segment. V ertebral body heights are normal. There is moderately decreased disc height at T12-L1, L3-L4, and L4- L5 and severely decreased disc height at L5-S1. The distal spinal cord signal intensity is normal. Th e conus medullaris is at T12-L1. The following disc levels are specifically discussed: T12-L1: The disc is bulging. There is no facet joint osteoarthritis. There is mild bilateral neural f oraminal stenosis. There is mild central canal stenosis. L1-L2: The disc does not extend beyond the endplate margin. There is severe bilateral facet joint ost eoarthritis. There is no neural foraminal stenosis. There is no central canal stenosis. L2-L3: The disc does not extend beyond the endplate margin. There is severe bilateral facet joint ost eoarthritis. There is no neural foraminal stenosis. There is no central canal stenosis. L3-L4: The disc is bulging. There is severe right and moderate left facet joint osteoarthritis. There is mild bilateral neural foraminal stenosis. There is mild central canal stenosis. L4-L5: The disc is bulging. There is severe bilateral facet joint osteoarthritis. There is mild bilat eral neural foraminal stenosis. There is mild central canal stenosis. L5-S1: The disc is bulging and has an annular fissure. There is severe right and moderate left facet joint osteoarthritis. There is moderate right and mild left neural foraminal stenosis. There is mild central canal stenosis. IMPRESSION: 1. Severe lumbar spondylosis. Reviewed, dictated and finalized at location A.
--- NOTE | ~2023-01-21 | CT_ITS ---
Non-contrast Head CT History: Altered mental status COMPARISON: 11/27/2022 Technique: Axial non-contrast imaging of the brain was performed. Dose reduction technique was used on this scan by utilizing automated exposure control and iterative reconstruction technique. The dose -length product (DLP) was 681.00 mGy-cm. Findings: There is no evidence of intracranial hemorrhage, mass lesion, or acute infarct. Brain par enchyma appears normal. The ventricles and subarachnoid spaces are normal in size. The calvarium ap pears normal. There is extensive opacification of bilateral maxillary, ethmoid, and frontal sinuses. Sphenoid sinuses and mastoid air cells are clear.. Impression: No intracranial abnormality seen. Extensive sinusitis, as above, similar to prior exam. Reviewed, dictated and finalized at [facility]. Impression: No intracranial abnormality seen. Extensive sinusitis, as above, similar to prior exam.
[2023-01-21 18:23] VITALS: BP 120/82; PULSE 80; RESP 16; TEMP 36.8; O2SAT 97
--- NOTE | 2023-01-21 18:27 | ECG_ITS ---
Measurements Intervals [place] Rate: 77 P: 33 IN: 181 QRS: -22 QRSD: 85 T: -18 QT: 352 QTc: 401 Interpretive Statements SINUS RHYTHM EARLY PRECORDIAL R/S TRANSITION BORDERLINE T WAVE ABNORMALITY- INFERIOR LEADS BASELINE ARTIFACT- I, II, III, AVR, AVL, AVF, V1-V6 BORDERLINE ECG COMPARED TO ECG 11/27/2022 13:28:05 NO SIGNIFICANT CHANGES Electronically Signed On 01-21-2023 19:46:07 CDT by Yuri Raymond D.O.
[2023-01-21 18:36] LABS: Basophils Absolute Auto 0.1 K/mm3 (0.0-0.1); Basophils Percent Auto 0.9 % (0.2-1.2); Eosinophils Absolute Auto 0.1 K/mm3 (0-0.3); Hematocrit 44.8 % (42.0-52.0); Hemoglobin 14.8 g/dL (14.0-18.0); Immature Granulocyte Absolute 0.03 K/mm3 (0.00-0.031); Immature Granulocyte Percent A 0.4 % (0-0.5); Lymphocytes Absolute Auto 1.56 K/mm3 (0.9-3.2); Lymphocytes Percent Auto 19.9 % (18.3-44.2); Mean Corpuscular Hemoglobin 31.4 pg (26-34); Mean Corpuscular Volume 95.1 fl (80-100); Mean Platelet Volume 8.7 fl (7.4-10.4); Monocytes Absolute Auto 0.8 K/mm3 (0.1-0.6); Neutrophils Absolute Auto 5.3 K/mm3 (1.3-6.7); Neutrophils Percent Auto 67.8 % (45.5-73.1); Platelet Count Result 275 k/mm3 (150-375); Red Blood Count 4.71 M/mm3 (4.6-6.20); Red Cell Distribution Width 13.2 % (11.5-14.5); White Blood Count 7.8 K/mm3 (4.5-10.0)
[2023-01-21 18:50] LABS: INR 1.1; Prothrombin Time 14.5 Seconds (11.1-14.7)
[2023-01-21 18:51] LABS: Partial Thromboplastin Time 28.2 SECONDS (22.3-36.8)
[2023-01-21 19:00] LABS: Alanine Aminotransferase 24 U/L (6-50); Albumin Level 4.8 g/dL (3.5-5.1); Alkaline Phosphatase 80 U/L (38-126); Anion Gap 15 mmol/L (8-16); Aspartate Amino Transferase 28 U/L (17-59); Bilirubin,Total 1.3 mg/dL (0.2-1.3); Blood Urea Nitrogen 23 mg/dL (9-20); Carbon Dioxide 24 mmol/L (22-30); Chloride 101 mmol/L (98-107); Estimated CRCL calculation 74 ml/min; Estimated Glomerular Filt Rate 60; Glucose 90 mg/dL (65-110); Potassium 3.6 mmol/L (3.4-5.0); Sodium 140 mmol/L (137-145)
[2023-01-21 23:57] VITALS: BP 129/82; PULSE 71; RESP 15; O2SAT 100
[2023-01-21 23:59] VITALS: BP 129/82; PULSE 69; RESP 17; O2SAT 99
[2023-01-22] VITALS (18 sets, daily range): BP systolic 103–149; BP diastolic 57–87; PULSE 60–80; RESP 13–20; TEMP 36.1–36.9; O2SAT 94–100; BMI 33.0; BMI 32.8
--- NOTE | 2023-01-22 00:16 | ED.GENADULT ---
HPI - General Adult General Chief complaint: Urogenital-Male Stated complaint: delusional/confused/uti Time Seen by Provider: 01/21/23 23:46 Source: patient Mode of arrival: ambulatory Limitations: no limitations History of Present Illness HPI narrative: This is a 67-year-old male with PMH of CHF, A-fib, venous insufficiency, frequent UTIs who presents to the ED with family and with chief concern for possible UTI. Patient reports that he is seeing ghosts around his house and even here in the hospital. He states he does hear the ghost talk but does not interact with them. States he is becoming very forgetful and is unsure what is causing this. His daughter is here and reports that patient has not been himself today and states that he has had these hallucinations in the past with UTIs. They do note that this has been an increasingly frequent event and feel that he can not take very good care of himself. Patient reports some lightheadedness today and is unsure if he had a syncopal episode. States he is staying well-hydrated and urine has been clear. Denies fevers, chills, nausea, vomiting, chest pain, shortness of breath, cough, flank pain, back pain, urinary symptoms. Denies any pain whatsoever. He lives in his own place next-door to his sister's house who periodically check on him. He uses a cane/walker at home for ambulation, but family states he is having increasing difficulty with this. Family states that he was just discharged from outpatient home PT evaluation but they do not feel that he was ready for this. They feel that he has too much weakness and is still decreasing and mobility. Related Data Allergies Allergy/AdvReac Type Severity Reaction Status Date / Time No Known Allergies Allergy Verified 01/21/23 18:27 Review of Systems Review of Systems: All systems as dictated in [facility] Past Medical History Medical History Adult BMI 31.0-31.9 kg/sq m Aneurysm of left leg Diastolic congestive heart failure 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 Peripheral vascular disease Surgical History Surgical History History of bilateral cataract extraction History of inferior vena caval filter placement History of vascular surgery Left lower extremity. Family History Family History Sibling COVID Carcinoma of colon Sibling Breast cancer Father Mother Diabetes mellitus Social History Social History Social History: Surrogate medical decision maker: Oneyda Rhodes, daughter. Code status: Full code. Smoking packs per day: 0.6 Smoking cigarettes per day: 12.0 Years smoked: 50 Smoking pack-years: 30.00 Smoking status: Current every day smoker Tobacco type: cigarettes Second hand tobacco smoke exposure: No Alcohol intake: former Drinks per week: 12 Alcohol use details: beer Substance use: never Substance use type: does not use Lack of Transportation: No Lack of Food: Never True Current Housing: I Have Housing Concerned About Future Housing: No Difficulty Paying Gas/Electric Bills: No Difficulty Paying for Meds: No Currently Unemployed: No Education: Decline to Answer Difficulty w/ Childcare or Family Care: No Living arrangements: alone Occupation/Education: retired Additional occupation/education comments: 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 Spiritual care concerns: No Agree to blood products: Yes Exam Narrative: GENERAL: Well-appearing, well-nourished, and in no acute distress. HEAD: Normocephalic, atraumatic. EYES: PERRLA and EOMI. ENT: Nares clear, no rhinorrhea or epistaxis. Mucous membranes moist. Oropharynx without tonsillar hypertrophy exudate or o
[2023-01-22 00:44] LABS: Creatine Kinase 349 U/L (55-170)
[2023-01-22 00:47] LABS: Appearance Urine Clear (Clear); Bacteria Urine None Seen /hpf; Bilirubin Urine Negative (Negative); Blood Urine Negative (Negative); Color Urine Yellow (Yellow); Glucose Urine UA Negative (Negative); Ketones Urine Trace mg/dL (Negative); Leukocyte Esterase Ur Negative LEU/UL (Negative); Nitrate Urine Negative (Negative); Non Pathogenic Casts 0-2; Protein Urine Trace mg/dL (Negative); RBC Urine 0-2 /hpf (0-2); Specific Grav Ur 1.026 (1.001-1.035); Squamous Epithelial Cell Urine None seen /hpf (Few); Urobilinogen Urine 0.2 mg/dL (<2.0); WBC Urine 0-5 /hpf
[2023-01-22 01:01] LABS: Add Urine Microscopic? YES
[2023-01-22] MEDS: SODIUM CHLORIDE 0.9% IV 1,000 ML 999 ML IV CONT (01:32)
[2023-01-22] MEDS: SODIUM CHLORIDE 0.9% IV 500 ML 999 ML IV CONT (03:25)
--- NOTE | 2023-01-22 04:19 | ADMGEN ---
This patient, Ramy Dailey, was admitted to 3 [facility] Surg Room 307-01 at 0400. Patient/family oriented to hospital policies and general routines including ID bracelet, bed and alarms, visiting hours, pain management, procedures, bathroom and other care routines, personal items, smoking policy, room service/diet, and visiting hours. Information on how to activate the Rapid Response Team has been discussed. Patient/Family are encouraged to report perceived risks to care and to ask questions if they do not understand what they are told or what they should do.
--- NOTE | 2023-01-22 08:06 | PM.IMHP ---
H&P: HPI History of Present Illness Date/Time: 01/22/23 08:06 Chief Complaint: AMS, weakness Narrative: This is a 67-year-old gentleman with a past medical history of chronic back pain, frequent falls, factor 5 Leiden deficiency, hyperlipidemia and hypertension. It appears in the last year he has had 3 falls requiring hospitalizations. He states that he came to the hospital last night to be evaluated after not being able to walk. He says that earlier in the day he was able to walk over to his sister's house from his apartment without difficulties. He does normally ambulate with a cane and he has a shuffled gait because of his ? leg . His left lower extremity has chronic numbness related to prior vascular surgeries. In the afternoon he was in his recliner and unable to get up and walk. He needed to have his children come and help get him in the car and it took four of them to move him. He says that he normally does not want to be taken to the hospital but he was scared that he couldn't ambulate. He does say that he had some dizziness and lightheaded as well. He denies inability to void or stool or concerns for saddle anesthesia. He also says that he has some left upper arm pain with full extension of his elbow. On assessment his left arm and left lower extremity are weaker compared to the right. He does say that over the last few months he is having hallucinations. He sees ghost out in the yard and in his home. He knows that they are hallucinations. His family has had concerns about his increasing forgetfulness over the last few months. There is a history of dementia in the family and they are concerned that he may be starting to show signs of dementia. I called and spoke with his daughter Latoya to verify the information he has given me and discuss any concerns. She does say that normally he will is able to ambulate with a cane. She says that he may think he walks well but he does have a shuffled gait because of poor immobility to his left lower extremity. She says that yesterday he walked to his sister's house and was trying to get into her garage. He use to live with the sister and the family thinks he got confused yesterday forgetting that he no longer lives there. There concerns about his living conditions. His apartment is not well kept and he does not take good care of his hygiene. His labs are essentially benign on admission and his UA is negative for UTI. He is being admitted for a 23 hour observation for PT and OT eval, consult with Neurosurgery, and further workup. Review of Systems Review of Systems: All systems reviewed & are unremarkable except as noted in HPI and below PMFSH Past Medical History Medical History (Updated 01/22/23 @ 16:54 by Monae Holliday APRN) Adult BMI 31.0-31.9 kg/sq m Aneurysm of left leg Back pain 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 Hypertension Peripheral vascular disease Surgical History Surgical History History of bilateral cataract extraction History of inferior vena caval filter placement History of vascular surgery Left lower extremity. Family History Family History Sibling COVID Carcinoma of colon Sibling Breast cancer Father Mother Diabetes mellitus Social History Social History Social History: Surrogate medical decision maker: Oneyda Rhodes, daughter. Code status: Full code. Smoking packs per day: 0.6 Smoking cigarettes per day: 12.0 Years smoked: 50 Smoking pack-years: 30.00 Smoking status: Former smoker Tobacco type: cigarettes Second hand tobacco smoke exposure: No Smoking end date: 12/22/22 Alcohol intake: former Drinks per week: 12 Alcohol use details: beer Substance use: never Substance use type: does not use Lac
[2023-01-22 08:55] LABS: Anion Gap 7 mmol/L (8-16); Blood Urea Nitrogen 21 mg/dL (9-20); Calcium 8.8 mg/dL (8.4-10.2); Carbon Dioxide 25 mmol/L (22-30); Chloride 105 mmol/L (98-107); Estimated CRCL calculation 90 ml/min; Estimated Glomerular Filt Rate > 60; Glucose 105 mg/dL (65-110); Potassium 3.4 mmol/L (3.4-5.0); Sodium 137 mmol/L (137-145)
[2023-01-22] MEDS: RIVAROXABAN 20 MG TABLET PO (09:23)
[2023-01-22] MEDS: CHOLECALCIFEROL 1,000 UNITS TABLET 1000 UNITS PO (09:23)
[2023-01-22] MEDS: TAMSULOSIN HCL 0.4 MG CAPSULE PO (09:23)
[2023-01-22] MEDS: LORazepam INJ (*CRX) 2 MG/ML VIAL 0.5 MG IV PUSH (16:03)
[2023-01-22] MEDS: ATORVASTATIN 20 MG TABLET PO (20:46)
--- NOTE | 2023-01-22 21:35 | WPDNEUROSGCN ---
Assessment and Plan Assessment and plan (1) Cervical spondylosis: Code(s): M47.812 - Spondylosis without myelopathy or radiculopathy, cervical region Status: Acute (2) Lumbar spondylosis: Code(s): M47.816 - Spondylosis without myelopathy or radiculopathy, lumbar region Status: Acute Plan Ramy is a 67-year-old gentleman with episodic diffuse weakness. I cannot detect a radicular or myelopathic syndrome and he does not have radiographic abnormalities that would support either of those diagnoses. The not believe there is any indication for surgery and had cervical or lumbar spine. Consult date: 01/22/23 HPI: Ramy Dailey is a 67 year old male Intermittent episodes of diffuse weakness. He states that sometimes he is just not able to walk but can't really describe it further other than that he has trouble moving his legs forward. He does not report lateralizing weakness or numbness. M he does not report difficulty with balance specifically. He is not reporting neck pain or back pain that is significant. As part of his evaluation he has undergone MRI of the cervical and lumbar spine. These studies were available for review. He does not report bowel or bladder difficulty that is new or other constitutional problems. he has some chronic numbness in his left lower extremity related to surgeries That have been performed there. he has issues it is left elbow make it difficult for him to extend his arm. Review of Systems Review of Systems: Patient denies shortness of breath, cough, fever, chills, nausea, vomiting, weight loss, weight gain, chest pain, dysuria. Review systems is otherwise negative except as noted elsewhere. [facility] Past Medical History Medical History Adult BMI 31.0-31.9 kg/sq m Aneurysm of left leg Back pain 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 Hypertension Peripheral vascular disease Surgical History Surgical History History of bilateral cataract extraction History of inferior vena caval filter placement History of vascular surgery Left lower extremity. Family History Family History Sibling COVID Carcinoma of colon Sibling Breast cancer Father Mother Diabetes mellitus Social History Social History Social History: Surrogate medical decision maker: Oneyda Rhodes, daughter. Code status: Full code. Smoking packs per day: 0.6 Smoking cigarettes per day: 12.0 Years smoked: 50 Smoking pack-years: 30.00 Smoking status: Former smoker Tobacco type: cigarettes Second hand tobacco smoke exposure: No Smoking end date: 12/22/22 Alcohol intake: former Drinks per week: 12 Alcohol use details: beer Substance use: never Substance use type: does not use Lack of Transportation: No Lack of Food: Never True Current Housing: I Have Housing Concerned About Future Housing: No Difficulty Paying Gas/Electric Bills: No Difficulty Paying for Meds: No Currently Unemployed: No Education: Decline to Answer Difficulty w/ Childcare or Family Care: No Living arrangements: alone Occupation/Education: retired Additional occupation/education comments: 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 Spiritual care concerns: No Agree to blood products: Yes Meds Home Medications and Allergies Home Medications Medication Instructions Recorded Confirmed Type cholecalciferol (vitamin D3) 25 1,000 unit PO DAILY #90 tabs 08/17/22 01/22/23 Rx mcg (1,000 unit) tablet (Vitamin D3) atorvastatin 20 mg tablet 20 mg PO HS #90 tabs 09/03/22 01/22/23 Rx losartan 50 mg-hydrochlorothiazide 1 tablet PO DAILY #90 tabs
[2023-01-23 06:00] VITALS: BP 109/65; PULSE 68; RESP 16; TEMP 35.7; O2SAT 98
[2023-01-23 06:45] LABS: Basophils Percent Auto 0.6 % (0.2-1.2); Eosinophils Absolute Auto 0.2 K/mm3 (0-0.3); Eosinophils Percent Auto 2.6 % (0-4.4); Hematocrit 39.6 % (42.0-52.0); Hemoglobin 12.7 g/dL (14.0-18.0); Immature Granulocyte Absolute 0.09 K/mm3 (0.00-0.031); Immature Granulocyte Percent A 1.4 % (0-0.5); Lymphocytes Absolute Auto 1.31 K/mm3 (0.9-3.2); Lymphocytes Percent Auto 21.1 % (18.3-44.2); Mean Corpuscular HGB Conc 32.1 g/dl (32-36); Mean Corpuscular Hemoglobin 31.9 pg (26-34); Mean Corpuscular Volume 99.5 fl (80-100); Mean Platelet Volume 9.2 fl (7.4-10.4); Monocytes Absolute Auto 0.7 K/mm3 (0.1-0.6); Neutrophils Absolute Auto 3.9 K/mm3 (1.3-6.7); Neutrophils Percent Auto 63.3 % (45.5-73.1); Platelet Count Result 198 k/mm3 (150-375); Red Blood Count 3.98 M/mm3 (4.6-6.20); Red Cell Distribution Width 13.1 % (11.5-14.5); White Blood Count 6.2 K/mm3 (4.5-10.0)
[2023-01-23 06:54] LABS: INR 1.2; Prothrombin Time 15.8 Seconds (11.1-14.7)
[2023-01-23 06:55] LABS: Partial Thromboplastin Time 33.1 SECONDS (22.3-36.8)
[2023-01-23 07:16] LABS: Alanine Aminotransferase 19 U/L (6-50); Albumin Level 3.7 g/dL (3.5-5.1); Alkaline Phosphatase 64 U/L (38-126); Anion Gap 5 mmol/L (8-16); Aspartate Amino Transferase 27 U/L (17-59); Bilirubin,Total 0.9 mg/dL (0.2-1.3); Blood Urea Nitrogen 13 mg/dL (9-20); Calcium 8.7 mg/dL (8.4-10.2); Carbon Dioxide 25 mmol/L (22-30); Chloride 106 mmol/L (98-107); Cholesterol 122 mg/dL (0-200); Creatine Kinase 406 U/L (55-170); Estimated CRCL calculation 90 ml/min; Estimated Glomerular Filt Rate > 60; Glucose 96 mg/dL (65-110); HDL Direct 38 mg/dL; Magnesium 2.1 mg/dL (1.6-2.3); Phosphorus 3.2 mg/dL (2.5-4.5); Potassium 3.5 mmol/L (3.4-5.0); Sodium 136 mmol/L (137-145); Triglycerides 125 mg/dL (<150)
[2023-01-23 07:25] LABS: LDL Cholesterol Direct 62 mg/dL
--- NOTE | 2023-01-23 08:22 | PM.IMPN ---
Progress Note: A&P Assessment and Plan (1) Hallucinations: Code(s): R44.3 - Hallucinations, unspecified Status: Acute Assessment and Plan: new onset dementia or progression of dementia Family states he has had increasing confusion and weakness. Also concerns that he is not taking good care of himself in terms of ADLs. U/A is negative for UTI Labs are essentially unremarkable. Slight increase in CK 349. S/P 1500 ml fluid bolus. Re-checking CK now. Will obtain Mini mental status for dementia. Concerns for a Lewey body dementia. Patient has had fluctuating cognition per family reports, recurrent visual hallucinations, concerns for depression given his lack of self care, repeated falls, and family describes his gait as shuffling. May consider starting on low dose Donepezil. (2) Lower extremity dysfunction: Code(s): R29.898 - Other symptoms and signs involving the musculoskeletal system Status: Acute Assessment and Plan: Chronic lower back pain and chronic left lower extremity numbness related to previous vascular surgeries. Patient normally walks with a cane and a shuffled gait. 10 acute onset of being unable to walk, requiring his family essentially carry him to the car. No saddle anesthesia. Will obtain MRI w/wo contrast of lumbar spine. Neurosurgery consult and rec's appreciated. No intervention required. PT/OT both recommending SNF. Plan Feeding:Heart healthy diet Analgesia:Tylenol or Tramadol Thromboembolic prophylaxis: Xarelto Ulcer prophylaxis: Not indicated Glycemic control: Not indicated Bowel regimen: PRN miralax Lines: PIV Antibiotics: N/A Subjective Date/time seen: 01/23/23 08:22 Interval history: This is a 67-year-old gentleman with a past medical history of chronic back pain, frequent falls, factor 5 Leiden deficiency, hyperlipidemia and hypertension.? It appears in the last year he has had 3 falls requiring hospitalizations.? He states that he came to the hospital last night to be evaluated after not being able to walk.? He says that earlier in the day he was able to walk over to his sister's house from his apartment without difficulties.? He does normally ambulate with a cane and he has a shuffled gait because of his ? leg .? His left lower extremity has chronic numbness related to prior vascular surgeries. In the afternoon he was in his recliner and unable to get up and walk.? He needed to have his children come and help get him in the car and it took four of them to move him. He says that he normally does not want to be taken to the hospital but he was scared that he couldn't ambulate. He does say that he had some dizziness and lightheaded as well.? He denies inability to void or stool or concerns for saddle anesthesia.? He also says that he has some left upper arm pain with full extension of his elbow.? On assessment his left arm and left lower extremity are weaker compared to the right.? He does say that over the last few months he is having hallucinations.? He sees ghost out in the yard and in his home.? He knows that they are hallucinations.? His family has had concerns about his increasing forgetfulness over the last few months.? There is a history of dementia in the family and they are concerned that he may be starting to show signs of dementia.? I called and spoke with his daughter Latoya to verify the information he has given me and discuss any concerns.? She does say that normally he will is able to ambulate with a cane.? She says that he may think he walks well but he does have a shuffled gait because of poor immobility to his left lower extremity.? She says that yesterday he walked to his sister's house and was trying to get into her garage.? He use to live with the sister and the family thinks he got confused yesterday forgetting that he no longer lives there.? There concerns about his living conditions. His apartment is not well kept and he does not take good care of
[2023-01-23 09:03] LABS: T4 Thyroxine 8.52 ug/dL (5.53-11.0)
[2023-01-23 09:17] LABS: Thyroid Stimulating Hormone 0.784 uIU/mL (0.465-4.680)
[2023-01-23] MEDS: TAMSULOSIN HCL 0.4 MG CAPSULE PO (09:35)
[2023-01-23] MEDS: RIVAROXABAN 20 MG TABLET PO (09:35)
[2023-01-23] MEDS: CHOLECALCIFEROL 1,000 UNITS TABLET 1000 UNITS PO (09:35)
--- NOTE | 2023-01-23 12:46 | PM.DS ---
DS: Admitting Diagnosis Discharge Date SundayJanuary 23 Admitting Diagnosis Weakness DS: Summary Hospital Course Hospital Course: This is a 67-year-old gentleman with a past medical history of chronic back pain, frequent falls, factor 5 Leiden deficiency, hyperlipidemia and hypertension.? It appears in the last year he has had 3 falls requiring hospitalizations.? He states that he came to the hospital last night to be evaluated after not being able to walk.? He says that earlier in the day he was able to walk over to his sister's house from his apartment without difficulties.? He does normally ambulate with a cane and he has a shuffled gait because of his ? leg .? His left lower extremity has chronic numbness related to prior vascular surgeries. In the afternoon he was in his recliner and unable to get up and walk.? He needed to have his children come and help get him in the car and it took four of them to move him. He says that he normally does not want to be taken to the hospital but he was scared that he couldn't ambulate. He does say that he had some dizziness and lightheaded as well.? He denies inability to void or stool or concerns for saddle anesthesia.? He also says that he has some left upper arm pain with full extension of his elbow.? On assessment his left arm and left lower extremity are weaker compared to the right.? He does say that over the last few months he is having hallucinations.? He sees ghost out in the yard and in his home.? He knows that they are hallucinations.? His family has had concerns about his increasing forgetfulness over the last few months.? There is a history of dementia in the family and they are concerned that he may be starting to show signs of dementia.? I called and spoke with his daughter Latoya to verify the information he has given me and discuss any concerns.? She does say that normally he will is able to ambulate with a cane.? She says that he may think he walks well but he does have a shuffled gait because of poor immobility to his left lower extremity.? She says that yesterday he walked to his sister's house and was trying to get into her garage.? He use to live with the sister and the family thinks he got confused yesterday forgetting that he no longer lives there.? There concerns about his living conditions. His apartment is not well kept and he does not take good care of his hygiene. His labs are essentially benign on admission and his UA is negative for UTI. He is being admitted for a 23 hour observation for PT and OT eval, consult with Neurosurgery, and further workup. 01/23: Patient is doing much better today. His lumbar spine of his MRI just shows lumbar spondylosis and there is no indication for surgical intervention. He was able to work with PT and OT therapy today. He is also agreeable to transfer to [facility] [address] for further rehab. Anticipate discharge this afternoon around 3:00 p.m. Status at Discharge Cognitive/behavioral status at discharge: A&O x4 with intermittent periods of confusion. Time Spent with Patient Time attestation: Total time spent providing and/or coordinating discharge services: 40 Exam Narrative: General: well appearing, well developed, well nourished, appears stated age. HEENT: normocephalic, atraumatic. Mucous membranes moist. EOMI, PERRLA, bilateral sclera anicteric, no conjunctival injection. Neck supple without JVD, lymphadenopathy, or bruit. Respiratory: clear to auscultation bilaterally. No rales/rhonic/wheezes. Cardiovascular: Regular rate and rhythm, normal S1-S2 upon auscultation. No murmurs, rubs, or clicks. PMI is nondisplaced, capillary re-fill less than 3 second. Abdomen: Soft, round, no pulsatile masses, non-distended and non-tender. No rebound, no guarding. No CVA tenderness, no hepatosplenomegaly.? Bowel sounds present to all four quadrants. No high pitch or tinkling sounds, resonant to percussion. Extremities: No cyanosis, clubbing. Left lower extremity with
[2023-01-23 14:00] VITALS: BP 108/73; PULSE 62; RESP 18; TEMP 36.1; O2SAT 96
[2023-01-23 15:12] LABS: SARS-CoV-2 RNA PCR Negative (Negative)
[2023-01-26 06:10] LABS: Triiodothyronine T3 Free 2.5 pg/mL (2.3-4.2)
== END 2023-01-23 15:10 ==
LOC: ANHED 23:46 → ANH3MEDSUR 01-22 03:45
PROVIDERS: Preventive Medicine Aerospace Medicine; Admitting Provider Internal Medicine; Emergency Provider Physician Assistant; PCP Family Medicine; Visit Provider Nurse Practitioner Acute Care
DX: R44.3 Hallucinations, unspecified (principal); R41.3 Other amnesia; M62.81 Muscle weakness (generalized); R29.6 Repeated falls; Z20.822 Contact with and (suspected) exposure to COVID-19; I11.0 Hypertensive heart disease with heart failure; I50.30 Unspecified diastolic (congestive) heart failure; D68.2 Hereditary deficiency of other clotting factors; M47.812 Spondylosis without myelopathy or radiculopathy, cervical region; M47.816 Spondylosis without myelopathy or radiculopathy, lumbar region; I73.9 Peripheral vascular disease, unspecified; J32.9 Chronic sinusitis, unspecified; G89.29 Other chronic pain; M54.9 Dorsalgia, unspecified; R94.31 Abnormal electrocardiogram [ECG] [EKG]; Z87.891 Personal history of nicotine dependence; F10.90 Alcohol use, unspecified, uncomplicated; Z79.1 Long term (current) use of non-steroidal anti-inflammatories (NSAID); Z99.89 Dependence on other enabling machines and devices; Z86.718 Personal history of other venous thrombosis and embolism; Z81.8 Family history of other mental and behavioral disorders
CPT/HCPCS: 36415; 70450; 72158; 80048; 80053; 80061; 81001; 82550; 82607; 83735; 84100; 84436; 84443; 84481; 85025; 85610; 85730; 87635; 93005; 96361; 96374; 97110; 97116; 97161; 97165; 97530; 97535; 99285; A9270; A9577; G0378; J2060; J7030; J7040

== ENCOUNTER 2023-05-25 09:14 | Outpatient (CLI) | payer MEDICARE, SELFPAY ==
--- NOTE | ~2023-05-25 | US_ITS ---
Duplex Sonography of the bilateral lower extremities: Indication: Acute embolism Sagittal and transverse B-mode images as well as color-flow imaging were performed on the right and l eft femoral and popliteal veins. B-mode examination was done without and with compression in the tra nsverse plane. There is good visualization of the bilateral common femoral, proximal profunda femora l, superficial femoral, greater saphenous, and popliteal veins. There is probable small amount of partially occlusive thrombus in the right SFV. Remaining visualized venous structures bilaterally demonstrate normal flow and compressibility. Visualized calf veins are also patent. Left peroneal vein not visualized.. Impression: Small amount of partially occlusive thrombus in the right SFV. Reviewed, dictated and finalized at location [facility] Impression: Small amount of partially occlusive thrombus in the right SFV.
== END 2023-05-25 09:15 | disposition home or self-care (01) ==
LOC: ANHIMG 09:16
PROVIDERS: PCP Family Medicine; Visit Provider Nurse Practitioner Family
DX: I82.413 Acute embolism and thrombosis of femoral vein, bilateral (principal)
CPT/HCPCS: 93970

== ENCOUNTER 2023-06-30 14:16 | Observation (INO) | payer MEDICARE, SELFPAY ==
--- NOTE | 2023-06-22 10:47 | PC.NURSE ---
Report to the Outpatient Waiting Room, entrance under the green pavilion located off [facility], at time _1000 on date _06/29/23 . Planned Procedure Time: ___1200 . Time changes happen often and if your time is changed the preop area will call you the afternoon before. - You and your visitor will be asked to self-screen and do not enter if you have any COVID symptoms. - A mask is optional within the hospital at this time. Patients may have clear liquids (water, carbonated beverages, clear teas, apple juice) until 3 hours prior to surgery( 9:00 AM) with a maximum of 20 ounces. - No food from midnight until time of surgery Take the following medications with a SIP of water the morning of surgery: ___AMLODIPINE,BREXPIPRAZOLE, DO NOT STOP ANY OF YOUR OTHER PRESCRIPTION MEDICATIONS PRIOR TO SURGERY ?EXCEPT THE FOLLOWING Medications to discontinue per physician ___HOLD VITAMIN D3 3 DAYS PRE OP.LAST DOSE 06/25/[address] XAR[facility] [address] JACOB- THEY WILL BE FAXING THE ORDER_PER KORTNEY AT DR JACOB'S OFFICE Please no make-up, nail citizen of [place], hairspray, perfume, deodorant, or body powder the day of surgery. No jewelry (including any body piercings) or valuables the day of surgery, leave them at home. Please take a shower or bath the night before, or the morning of, surgery with an antibacterial soap. Wear comfortable, loose fitting clothing. Children are encouraged to wear pajamas. - Jewelry must be removed prior to entering the operating room. Rings and piercings that are not removed may be cut off. - The hospital will not accept responsibility for valuables. - Please leave all valuables, including medications, at home the day of surgery. If you are going home after surgery, a licensed pizza driver must drive you home. - NO public transportation without another adult if you receive anesthesia. - We recommend that an adult stay with you for 24 hours following discharge. - We also recommend that you do not drive, make important decision, drink alcoholic beverages, or take any drugs that were not prescribed by your health care provider for at least 24 hours after your discharge time. Follow any additional instructions given to you from your surgeon. If you or anyone in your household have experienced Covid symptoms in the past week, please notify your surgeon or the nurse liaison at the phone number below for possible testing. Telephone instructions given to [employer] , FAXED TO [facility] AND ALSO FAXED TO [facility] and asked if any additional questions and then verbalized understanding. Patient advised to call surgeon office or pre surgery nurse liaison [phone] if any additional questions.
[2023-06-22 10:52] VITALS: BMI 33.9
[2023-06-29] VITALS (12 sets, daily range): BP systolic 110–157; BP diastolic 64–85; PULSE 55–84; RESP 12–20; TEMP 35.9–36.7; O2SAT 94–100; BMI 33.2
--- NOTE | 2023-06-29 10:56 | WPDANESEPPF ---
Anes - Initial Pre Proc Eval Procedure: Operation Date: 06/29/23 12:00 Proposed Procedures p Open Left Inguinal Hernia Repair with Mesh - Tl Alexandre MD Date/Time: 06/29/23 10:56 Surgeon: Tl Alexandre MD Pre Op Diagnosis: Reducible Left Ing Hernia Patient Data Age: 67 Gender: M Height: 1.85 m Weight: 116.6 kg Allergies Allergy/AdvReac Type Severity Reaction Status Date / Time No Known Allergies Allergy Verified 06/29/23 10:43 Home Medications Medication Instructions Recorded Confirmed Type cholecalciferol (vitamin D3) 25 1,000 unit PO DAILY #90 tabs 04/06/23 06/29/23 Rx mcg (1,000 unit) tablet (Vitamin D3) amlodipine 5 mg tablet 5 mg PO DAILY 04/18/23 06/29/23 History brexpiprazole 0.5 mg tablet 0.5 mg PO DAILY #90 tabs 04/20/23 06/29/23 Rx (Rexulti) rivaroxaban 20 mg tablet (Xarelto) 20 mg PO QPM 06/22/23 06/29/23 History tamsulosin 0.4 mg capsule 0.4 mg PO QPM 06/22/23 06/29/23 History atorvastatin 20 mg tablet 20 mg PO HS #90 tabs 06/26/23 06/29/23 Rx enoxaparin 100 mg/mL subcutaneous 100 mg subcut Q12H #5 mL 06/26/23 06/29/23 Rx syringe (Lovenox) Patient hx anesthesia problems: none Family hx anesthesia problems: none Results Review: All pre-operative results and documents have been reviewed as part of the pre-operative evaluation. [facility] Past Medical History Medical History Adult BMI 31.0-31.9 kg/sq m Aneurysm of left leg Back pain BMI 29.0-29.9,adult BMI 35.0-35.9,adult BMI 37.0-37.9, adult Dementia with agitation 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 Hypertension Peripheral vascular disease Visual hallucination Surgical History Surgical History History of bilateral cataract extraction History of inferior vena caval filter placement History of vascular surgery Left lower extremity. Family History Family History Sibling COVID Carcinoma of colon Sibling Breast cancer Father Lung cancer Mother Diabetes mellitus Social History Social History Social History: Surrogate medical decision maker: Oneyda Rhodes, daughter. Code status: Full code. Smoking packs per day: 0.5 Smoking cigarettes per day: 10.0 Years smoked: 50 Smoking pack-years: 25.00 Smoking status: Former smoker Tobacco type: cigarettes Second hand tobacco smoke exposure: No Smoking end date: 12/22/22 Alcohol intake: former Drinks per week: 12 Alcohol use details: beer Substance use: never Substance use type: does not use Lack of Transportation: No Lack of Food: Never True Current Housing: I Have Housing Concerned About Future Housing: No Difficulty Paying Gas/Electric Bills: No Difficulty Paying for Meds: No Currently Unemployed: No Education: High School Diploma/GED Difficulty w/ Childcare or Family Care: No Living arrangements: assisted living Occupation/Education: retired Additional occupation/education comments: 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 Gender identity (if verbalized by the patient): Male Spiritual care concerns: No Agree to blood products: Yes Anes - Eval Final PreProcedure Day of Procedure 06/29/23 10:56 Patient weight: obese Heart: regular rate and rhythm Lungs: clear to auscultation Airway: Mallampati scale class III Neurological: alert and oriented Last oral intake: >/= 8 hours ASA classification: III Emergent: no Anesthetic plan: proceed Anesthesia type and monitoring: general GIVS (may use LMA) and standard monitoring Results Review: All pre-operative results and documents have been reviewed as part of the pre-operative evaluation. Informed Consent: The patient's anesthet
[2023-06-29] MEDS: LACTATED RINGERS 1,000 ML 30 ML IV CONT ×2 (11:00→14:17)
[2023-06-29] MEDS: ACETAMINOPHEN 500 MG TABLET 1000 MG PO (11:20)
--- NOTE | 2023-06-29 11:47 | WPDHPUPDATE1 ---
History and Physical Update Update Date/Time: 06/29/23 11:47 History and Physical has been reviewed, including an updated exam of the patient. There are NO changes in the patient's condition. Risks, benefits, and alternatives have been discussed and questions answered. Patient agrees to proceed with procedure.
[2023-06-29] MEDS: ceFAZolin 2 GM/D5W 50 ML 2 GM/50 ML BAG IVPB (12:11)
[2023-06-29] MEDS: BUPivacaine HCL 0.5% PF 30 ML VIAL INFILTRATE (12:58)
[2023-06-29] MEDS: LACTATED RINGERS 1,000 ML 75 ML IV CONT (16:06)
--- NOTE | 2023-06-29 16:12 | ADMGEN ---
This patient, Ramy Dailey, was admitted to 3 [facility] Surg Room 302-01. Patient/family oriented to hospital policies and general routines including ID bracelet, bed and alarms, visiting hours, pain management, procedures, bathroom and other care routines, personal items, smoking policy, room service/diet, and visiting hours. Information on how to activate the Rapid Response Team has been discussed. Patient/Family are encouraged to report perceived risks to care and to ask questions if they do not understand what they are told or what they should do.
[2023-06-29] MEDS: TAMSULOSIN HCL 0.4 MG CAPSULE PO (17:02)
[2023-06-29] MEDS: RIVAROXABAN 20 MG TABLET PO (17:02)
--- NOTE | 2023-06-29 18:12 | PC.NURSE ---
Patient's home Rexulti placed in middle closet in room 302. 7 pills present in pack. Awaiting call back from Dr Alexandre if ok to use patient's home supply.
[2023-06-29] MEDS: ATORVASTATIN 20 MG TABLET PO (20:00)
[2023-06-29] MEDS: ENOXAPARIN 120 MG/0.8 ML SYRINGE SUB-Q (20:00)
[2023-06-30 05:35] VITALS: BP 137/77; PULSE 78; RESP 12; TEMP 36.7; O2SAT 96
[2023-06-30] MEDS: CHOLECALCIFEROL 1,000 UNITS TABLET 1000 UNITS PO (07:58)
[2023-06-30] MEDS: ENOXAPARIN 120 MG/0.8 ML SYRINGE SUB-Q (07:59)
[2023-06-30] MEDS: amLODIPine BESYLATE 5 MG TABLET PO (07:59)
--- NOTE | 2023-06-30 09:10 | PHAR ---
PHARMACY VERIFIED HOME MED: BREXIPIPRAZOLE (REXULTI) 0.5 MG TABLET TAKE ONE TABLET BY MOUTH ONCE DAILY
--- NOTE | 2023-06-30 11:02 | WPDPN ---
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 Was bridged with Lovenox perioperatively. (2) Inguinal hernia with obstruction without gangrene: Qualifiers: Laterality: unilateral Recurrence: non-recurrent Qualified Code(s): K40.30 - Unilateral inguinal hernia, with obstruction, without gangrene, not specified as recurrent Code(s): K40.30 - Unilateral inguinal hernia, with obstruction, without gangrene, not specified as recurrent Status: Acute Assessment and Plan: Postop day 1 after open left inguinal hernia repair with incarcerated sigmoid colon within the left hemiscrotum. Colon was all completely viable. Continue supportive management today. Oral pain medications as needed. Work with PT and OT to make sure that he is safe from an ambulatory standpoint to get around with his walker. Likely can discharge to his assisted living facility tomorrow if he is ambulating and safe with his walker. Subjective Date/time seen: 06/30/23 11:02 Interval history: Patient doing well today. Awake sitting up in bed and converses easily. He did have urinary retention last evening and had have straight cathed x1. Since then he has been very urinate without any difficulty. Tolerated regular food this morning without difficulty. Pain seems to be okay on oral pain medications. PT and OT have yet to work with him today for ambulation. Exam : Other: Left groin incision slight ecchymosis but no redness or drainage. Mild swelling the right groin region into the scrotum. Incisions intact. Objective Data Vital Signs Vital Signs: Vital Signs - 24 hr 06/29/23 14:17 06/29/23 14:30 06/29/23 14:45 Temperature 36.7 C Pulse Rate 71 68 83 Respiratory Rate 17 16 14 Blood Pressure 138/82 127/82 132/75 Pulse Oximetry 98 99 100 Oxygen Delivery Simple Face Mask Simple Face Mask Simple Face Mask Oxygen Flow Rate 8 8 8 06/29/23 15:00 06/29/23 15:15 06/29/23 15:30 Temperature Pulse Rate 84 77 73 Respiratory Rate 19 18 15 Blood Pressure 157/85 H 141/82 H 125/69 Pulse Oximetry 95 94 94 Oxygen Delivery Room Air Room Air Room Air Oxygen Flow Rate 06/29/23 15:45 06/29/23 16:25 06/29/23 16:52 Temperature 35.9 C L 35.9 C L Pulse Rate 73 76 71 Respiratory Rate 16 16 16 Blood Pressure 127/68 136/75 120/74 Pulse Oximetry 95 96 98 Oxygen Delivery Room Air Oxygen Flow Rate 06/29/23 18:44 06/29/23 20:00 06/29/23 21:36 Temperature 36.4 C Pulse Rate 71 65 Respiratory Rate 16 12 Blood Pressure 111/65 Pulse Oximetry 98 94 Oxygen Delivery Room Air Room Air Oxygen Flow Rate 06/30/23 05:35 06/30/23 08:00 Temperature 36.7 C Pulse Rate 78 Respiratory Rate 12 Blood Pressure 137/77 Pulse Oximetry 96 Oxygen Delivery Room Air Oxygen Flow Rate Intake/Output Intake/Output: Intake & Output 06/27/23 06/28/23 06/29/23 06/30/23 23:59 23:59 23:59 23:59 Intake Total 450 700 Output Total 800 600 Balance -350 100 Meds/Results Medications: Active Medications Generic Name Dose Route Start Last Admin Trade Name Freq PRN Reason Stop Dose Admin Acetaminophen 1,000 mg 06/29/23 15:39 Acetaminophen 500 Mg Tablet PO Q6H PRN Mild Pain (1-3) or Fever Hydrocodone Bitart/Acetaminophen 1 tab 06/29/23 15:39 Hydrocodone/Acetaminophen (*Crx) 5-325 Mg Tablet PO Q4H PRN Pain Rated 4-6 Amlodipine Besylate 5 mg 06/30/23 09:00 06/30/23 07:59 Amlodipine Besylate 5 Mg Tablet PO 5 mg DAILY JARED Administration Atorvastatin Calcium 20 mg 06/29/23 21:00 06/29/23 20:00 Atorvastatin 20 Mg Tablet PO 20 mg HS JARED Administration Morphine Sulfate 4 mg 06/29/23
--- NOTE | 2023-06-30 11:46 | W.PM.PROC2 ---
Procedure Note - Detailed Date of Procedure 06/30/23 Pre-op Diagnosis Incarcerated Left Ing Hernia Post-op Diagnosis Same Procedure Performed Open incarcerated left inguinal hernia repair with mesh (Lichenstein Repair) Surgeon Tl Alexandre MD Anesthesia MAC Indications patient is a 67-year-old gentleman who has a large left inguinal hernia with sigmoid colon the left hemiscrotum through a left inguinal hernia which is only partially reducible. He presents now for open left inguinal hernia repair with mesh. Findings Patient had large pantaloon left inguinal hernia with about 1ft of sigmoid colon incarcerated within the left inguinal hernia and left hemiscrotum. There was no ischemia or compromise of the sigmoid colon. Description of Procedure After informed consent was obtained patient brought to the operating room was placed supine position then general LMA anesthesia was administered. The bilateral groins and lower abdomen was then prepped and draped usual sterile fashion. A time-out was then performed correctly identifying the patient as well as procedure to be performed verifying site marking. He was given perioperative IV antibiotics. And then proceeded to make a transverse incision left groin region just above the palpated left pubic tubercle. Dissection carried down through the subcu tissue electrocautery until the external oblique aponeurosis counter. The external oblique aponeurosis was incised scalpel and then opened widely out through the external ring utilized electrocautery. External oblique aponeurosis was from the underlying cremasteric muscle fibers and internal oblique muscle fibers utilizing electrocautery and blunt finger dissection. The cord structures were isolated the pubic tubercle with blunt finger dissection a [place] drain was placed around the cord structures for mobilization. I then took down additional cremasteric muscle fibers looked at the floor of the inguinal canal and it appeared the patient had a large pantaloon inguinal hernia with both a direct and indirect component. I then opened the hernia sac in the spermatic cord to identify about 1ft of ischemic in viable sigmoid colon. The sigmoid colons reduced back through the dilated internal ring and defect in the floor of the inguinal canal. I then dissected remaining ports hernia sac out from the scrotum and the cord structures and then closed the hernia sac at the level of internal ring utilizing a 2-0 Vicryl pursestring suture. The distal portion of the hernia sac was then resected and Sent to pathology. I then recreated the floor of the inguinal canal by placing interrupted 0 Ethibond sutures to bring the left rectus muscle to the area Robin's ligament. This closed the defect floor of the inguinal canal. Above the spermatic cord I closed down the internal ring utilizing interrupted 0 Ethibond sutures as well. I then proceeded to perform a Lisa repair of the inguinal hernia by placing a piece of Bard soft mesh cut to the appropriate size configuration and placed over the floor of the inguinal canal. It was secured at the pubic tubercle utilizing a 2-0 Prolene suture and it was run medially to secure the mesh to the internal oblique muscle fibers. A slit was then cut in the overlay patch to accommodate cord structures and the slit was closed utilizing a running 2-0 Prolene suture. A 2nd 2-0 Prolene suture was then started the pubic tubercle and run laterally to approximate the mesh to the shelving edge of the external oblique aponeurosis. Mesh laid out very nicely without tension. The tail was tucked underneath the external oblique aponeurosis proximally. I then closed the external oblique aponeurosis utilizing a running 3-0 Vicryl suture leaving the external ring open. I then irrigated out the incision sterile saline solution. Hemostasis was good. I then closed the subcutaneous tissues utilizing interrupted 3-0 Vicryl sutures in subcu
[2023-06-30 14:00] VITALS: BP 100/67; PULSE 61; RESP 18; TEMP 36.3; O2SAT 97
[2023-06-30 15:28] VITALS: O2SAT 92
[2023-06-30] MEDS: TAMSULOSIN HCL 0.4 MG CAPSULE PO (17:06)
[2023-06-30] MEDS: RIVAROXABAN 20 MG TABLET PO (17:06)
[2023-06-30 20:00] VITALS: PULSE 61; RESP 18; O2SAT 92
[2023-06-30 22:00] VITALS: BP 114/65; PULSE 63; RESP 16; TEMP 36.7; O2SAT 93
[2023-07-01 06:00] VITALS: BP 112/67; PULSE 58; RESP 18; TEMP 37; O2SAT 96
[2023-07-01 10:02] VITALS: BP 107/70; PULSE 70; RESP 16; O2SAT 94
[2023-07-01] MEDS: amLODIPine BESYLATE 5 MG TABLET PO (10:03)
[2023-07-01] MEDS: CHOLECALCIFEROL 1,000 UNITS TABLET 1000 UNITS PO (10:03)
--- NOTE | 2023-07-01 12:15 | PM.PNGS ---
Progress Note: A&P Assessment and Plan (1) Inguinal hernia: Code(s): K40.90 - Unilateral inguinal hernia, without obstruction or gangrene, not specified as recurrent Status: Acute Assessment and Plan: doing well, cont routine postop care, d/w therapy and pt needs more care and strengthening prior to discharge Subjective Subjective Date/Time Seen: 07/01/23 12:15 Interval history: feels ok, still pretty weak especially when getting up and ambulating Review of Systems Review of Systems: All systems reviewed & are unremarkable except as noted in HPI and below Exam Const: General: cooperative, comfortable and no acute distress Resp: Auscultation: clear to auscultation bilaterally Cardio: Rate: regular rate Rhythm: regular rhythm GI: Inspection: normal to inspection, non-distended and incision GI Palp: Yes abdominal tenderness, Yes Soft to palpation, Yes Tenderness to palpation present (GI), No Guarding due to palpation present (GI) and No Rigid due to palpation Objective Data Vital Signs Vital Signs: Vital Signs - 24 hr 06/30/23 14:00 06/30/23 15:28 06/30/23 20:00 Temperature 36.3 C L Pulse Rate 61 61 Respiratory Rate 18 18 Blood Pressure 100/67 Pulse Oximetry 97 92 92 Oxygen Delivery Room Air Room Air 06/30/23 22:00 07/01/23 06:00 07/01/23 10:02 Temperature 36.7 C 37.0 C Pulse Rate 63 58 L 70 Respiratory Rate 16 18 16 Blood Pressure 114/65 112/67 107/70 Pulse Oximetry 93 96 94 Oxygen Delivery Intake/Output Intake/Output: Intake & Output 06/28/23 06/29/23 06/30/23 07/01/23 23:59 23:59 23:59 23:59 Intake Total 450 1300 476 Output Total 800 1050 600 Balance -350 250 -124 Meds/Results Medications: Active Medications Generic Name Dose Route Start Last Admin Trade Name Freq PRN Reason Stop Dose Admin Acetaminophen 1,000 mg 06/29/23 15:39 Acetaminophen 500 Mg Tablet PO Q6H PRN Mild Pain (1-3) or Fever Hydrocodone Bitart/Acetaminophen 1 tab 06/29/23 15:39 Hydrocodone/Acetaminophen (*Crx) 5-325 Mg Tablet PO Q4H PRN Pain Rated 4-6 Amlodipine Besylate 5 mg 06/30/23 09:00 07/01/23 10:03 Amlodipine Besylate 5 Mg Tablet PO 5 mg DAILY JARED Administration Atorvastatin Calcium 20 mg 06/29/23 21:00 06/30/23 20:26 Atorvastatin 20 Mg Tablet PO Not Given HS JARED Morphine Sulfate 4 mg 06/29/23 15:39 Morphine Sulfate (*Crx) 4 Mg/Ml Inj IV PUSH Q4H PRN Pain Rated 7-10 * Home Med * 0.5 mg 06/30/23 10:20 06/30/23 10:21 Brexpiprazole [ PO 07/30/23 10:19 0.5 mg Rexulti] 0.5 Mg DAILY JARED Administration Tablet Ondansetron HCl 4 mg 06/28/23 14:06 Ondansetron Inj 4 Mg/2 Ml Vial IV PUSH ONCE PRN Nausea Oxycodone HCl 5 mg 06/29/23 15:39 Oxycodone Hcl (*Crx) 5 Mg Tab Ir PO Q4H PRN Pain Rated 7-10 Rivaroxaban 20 mg 06/29/23 18:00 06/30/23 17:06 Rivaroxaban 20 Mg Tablet PO 20 mg QPM JARED Administration Tamsulosin HCl 0.4 mg 06/29/23 18:00 06/30/23 17:06 Tamsulosin Hcl 0.4 Mg Capsule PO 0.4 mg QPM JARED Administration Vitamin D 1,000 units 06/30/23 09:00 07/01/23 10:03 Cholecalciferol 1,000 Units Tablet PO 1,000 units DAILY JARED Administration
[2023-07-01 13:59] VITALS: BP 117/66; PULSE 67; RESP 20; TEMP 36.3; O2SAT 98
--- NOTE | 2023-07-01 15:30 | PCOTNOTE ---
Attempted to see pt for Occupational Therapy treatment. At therapist arrival pt is requiring verbal/tactile cues for arousal due to sleeping. During conversation with therapist, pt is having difficulty keeping awake requiring constant cues for arousal. Due to increase fatigue and falling asleep, therapy session was not completed. Will continue per poc duration/frequency tomorrow.
[2023-07-01] MEDS: polyethylene glycoL 3350 17 GM POWD.PACK PO (17:42)
[2023-07-01] MEDS: TAMSULOSIN HCL 0.4 MG CAPSULE PO (17:42)
[2023-07-01] MEDS: RIVAROXABAN 20 MG TABLET PO (17:42)
[2023-07-01 20:51] VITALS: BP 108/74; PULSE 63; RESP 16; TEMP 36.3; O2SAT 97
[2023-07-01] MEDS: ATORVASTATIN 20 MG TABLET PO (21:20)
[2023-07-02 05:53] VITALS: BP 129/61; PULSE 63; RESP 17; TEMP 36.2; O2SAT 100
[2023-07-02] MEDS: CHOLECALCIFEROL 1,000 UNITS TABLET 1000 UNITS PO (09:15)
[2023-07-02] MEDS: amLODIPine BESYLATE 5 MG TABLET PO (09:15)
[2023-07-02] MEDS: polyethylene glycoL 3350 17 GM POWD.PACK PO (09:15)
--- NOTE | 2023-07-02 09:46 | WPDPN ---
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 No bleeding complications. Mild ecchymosis around incision without hematoma. (2) Inguinal hernia with obstruction without gangrene: Qualifiers: Laterality: unilateral Recurrence: non-recurrent Qualified Code(s): K40.30 - Unilateral inguinal hernia, with obstruction, without gangrene, not specified as recurrent Code(s): K40.30 - Unilateral inguinal hernia, with obstruction, without gangrene, not specified as recurrent Status: Acute Assessment and Plan: Incarcerated left inguinal hernia has been repaired with mesh. He is now postoperative day 3. He is working with therapy and as long as he can ambulate safely with a walker today that he can discharge back to his assisted living facility. Subjective Date/time seen: 07/02/23 09:46 Interval history: Patient is doing well today. He was sitting up in a recliner and eating breakfast. He is urinating fine. A little constipated but was given a laxative. States he has only taken Tylenol for pain since his surgery. He has transitioned off of the bridging with Lovenox and is back on his usual dose of Xarelto Exam : Other: Left groin incision with mild ecchymosis around the incision. No hematoma. Minimal scrotal swelling. Objective Data Vital Signs Vital Signs: Vital Signs - 24 hr 07/01/23 10:02 07/01/23 10:03 07/01/23 13:59 Temperature 36.3 C L Pulse Rate 70 67 Respiratory Rate 16 20 Blood Pressure 107/70 117/66 Pulse Oximetry 94 98 Oxygen Delivery Room Air 07/01/23 20:51 07/02/23 05:53 Temperature 36.3 C L 36.2 C L Pulse Rate 63 63 Respiratory Rate 16 17 Blood Pressure 108/74 129/61 Pulse Oximetry 97 100 Oxygen Delivery Intake/Output Intake/Output: Intake & Output 06/29/23 06/30/23 07/01/23 07/02/23 23:59 23:59 23:59 23:59 Intake Total 450 1300 956 Output Total 800 1050 925 50 Balance -350 250 31 -50 Meds/Results Medications: Active Medications Generic Name Dose Route Start Last Admin Trade Name Freq PRN Reason Stop Dose Admin Acetaminophen 1,000 mg 06/29/23 15:39 Acetaminophen 500 Mg Tablet PO Q6H PRN Mild Pain (1-3) or Fever Hydrocodone Bitart/Acetaminophen 1 tab 06/29/23 15:39 Hydrocodone/Acetaminophen (*Crx) 5-325 Mg Tablet PO Q4H PRN Pain Rated 4-6 Amlodipine Besylate 5 mg 06/30/23 09:00 07/02/23 09:15 Amlodipine Besylate 5 Mg Tablet PO 5 mg DAILY JARED Administration Atorvastatin Calcium 20 mg 06/29/23 21:00 07/01/23 21:20 Atorvastatin 20 Mg Tablet PO 20 mg HS JARED Administration Morphine Sulfate 4 mg 06/29/23 15:39 Morphine Sulfate (*Crx) 4 Mg/Ml Inj IV PUSH Q4H PRN Pain Rated 7-10 * Home Med * 0.5 mg 06/30/23 10:20 07/02/23 09:17 Brexpiprazole [ PO 07/30/23 10:19 0.5 mg Rexulti] 0.5 Mg DAILY JARED Administration Tablet Ondansetron HCl 4 mg 06/28/23 14:06 Ondansetron Inj 4 Mg/2 Ml Vial IV PUSH ONCE PRN Nausea Oxycodone HCl 5 mg 06/29/23 15:39 Oxycodone Hcl (*Crx) 5 Mg Tab Ir PO Q4H PRN Pain Rated 7-10 Polyethylene Glycol 17 gm 07/01/23 17:00 07/02/23 09:15 Polyethylene Glycol 3350 17 Gm Powd.Pack PO 17 gm QAM JARED Administration Rivaroxaban 20 mg 06/29/23 18:00 07/01/23 17:42 Rivaroxaban 20 Mg Tablet PO 20 mg QPM JARED Administration Tamsulosin HCl 0.4 mg 06/29/23 18:00 07/01/23 17:42 Tamsulosin Hcl 0.4 Mg Capsule PO 0.4 mg QPM JARED Administration Vitamin D 1,000 units 06/30/23 09:00 07/02/23 09:15 Cholecalciferol 1,000 Units Tablet PO 1,000 units DAILY JARED Administration
[2023-07-02 14:00] VITALS: BP 122/76; PULSE 67; RESP 18; TEMP 35.7; O2SAT 96
--- NOTE | 2023-07-02 14:48 | PM.DS ---
DS: Admitting Diagnosis Discharge Date 07/02/23 Admitting Diagnosis Incarcerated left inguinal hernia DS: Discharge Diagnosis Discharge Diagnosis (1) Inguinal hernia: Code(s): K40.90 - Unilateral inguinal hernia, without obstruction or gangrene, not specified as recurrent Status: Acute DS: Summary Hospital Course Reason for hospitalization: This is a 67-year-old man who has a large left inguinal hernia with sigmoid colon to the left hemiscrotum through a left inguinal hernia which is only partially reducible. He was seen by Dr. Alexandre as an outpatient and decision was made to proceed with surgical repair. He presented on 06/29/2023 for surgery. Hospital Course: Dr. Alexandre performed an open incarcerated left inguinal hernia repair with mesh on 06/29/2023. He had a large pantaloon left inguinal hernia with about 1 foot of sigmoid colon incarcerated within the left inguinal hernia and left hemiscrotum. There was no ischemia or compromise of the sigmoid colon. He was admitted to the hospital following surgery. His diet was advanced and he is tolerating this well. He was restarted on his home medications. The patient was taking Xarelto, which was held prior to surgery and restarted postop day 0. He was found to have a left lower leg wound and wound care was consulted. This appeared to be chronic and he will be treated with local wound care. He had generalized weakness following surgery in comparison to his baseline, and PT and OT were ordered for evaluation. He presented from [facility]. After therapy worked with the patient, by postop day 2 his strength was back to nearly baseline. He was able to ambulate in the halls independently. Therapy felt he was stable to return to assisted living. [facility] also cleared the patient to return on discharge. I have asked care coordination to set up either home health or therapy through the assisted living for the patient after discharge. Status at Discharge Functional status at discharge: uses cane/walker Overall status at discharge: patient is progressing back to baseline Time Spent with Patient Time attestation: Total time spent providing and/or coordinating discharge services: Time spent: Greater than 30 minutes Exam Const: General: comfortable and no acute distress Orientation/consciousness: patient oriented x3 Resp: Effort & Inspection: normal respiratory effort Auscultation: clear to auscultation bilaterally Cardio: Rate: regular rate Rhythm: regular rhythm GI: Inspection: non-distended GI Palp: Yes Soft to palpation, No Tenderness to palpation present (GI), No Guarding due to palpation present (GI) and No Rebound tenderness present Auscultation: normal bowel sounds : Other: Left groin incision dry and glue intact. There is some localized ecchymosis, but no evidence of a hematoma. No erythema. Repair intact. Neuro: General: moves all extremities and no focal motor deficits Extrem: General: no calf tenderness Psych: Mental Status: mental status grossly normal Insight: Good insight present (Psych) DS: Data Data Completed and Pending Pending studies at discharge: Pending at discharge 06/29/23 13:16 Surgical [PTH] Routine Labs on day of discharge: Labs from last 24 hours 07/02/23 14:14 SARS-CoV-2 RNA (RT-PCR) Pending Procedures/Treatments: Procedures Operation Date: 06/29/23 12:00 Actual Procedure Side Surgeon p Open Left Incarcerated Inguinal Hernia Repair with Bard Mesh and Lisa Repair Left Tl Alexandre MD Discharge Plan Discharge Attending physician on discharge: Tl Alexandre Discharging Clinician: Rosa Mccann Anticipated Discharge Date/Time: 07/02/23 14:58 Patient Disposition: NH Snf/Asst Living Activity: may shower Diet: heart healthy Wound Care Instructions: incision open to air Discharge Instructions: May discharge patient home when stable.
[2023-07-02 15:06] LABS: SARS-CoV-2 RNA PCR Negative (Negative)
[2023-07-02] MEDS: TAMSULOSIN HCL 0.4 MG CAPSULE PO (17:11)
[2023-07-02] MEDS: RIVAROXABAN 20 MG TABLET PO (17:11)
== END 2023-07-02 17:30 ==
LOC: ANHSURGERY 14:18 → ANH3MEDSUR 14:18
PROVIDERS: Admitting Provider Surgery; PCP Family Medicine; Visit Provider Surgery
PROC: (CPT 49507; principal; 2023-06-29 12:00)
DX: K40.30 Unilateral inguinal hernia, with obstruction, without gangrene, not specified as recurrent (principal); R53.1 Weakness; R33.8 Other retention of urine; S81.802A Unspecified open wound, left lower leg, initial encounter; X58.XXXA Exposure to other specified factors, initial encounter; D68.51 Activated protein C resistance; I10 Essential (primary) hypertension; I73.9 Peripheral vascular disease, unspecified; F03.90 Unspecified dementia, unspecified severity, without behavioral disturbance, psychotic disturbance, mood disturbance, and anxiety; Z86.718 Personal history of other venous thrombosis and embolism; Z79.01 Long term (current) use of anticoagulants; Z87.891 Personal history of nicotine dependence; E66.9 Obesity, unspecified; Z68.33 Body mass index [BMI] 33.0-33.9, adult; Z11.52 Encounter for screening for COVID-19
CPT/HCPCS: 49507; 87635; 88302; 97110; 97116; 97161; 97165; 97530; 97535; A9270; C1781; G0378; J0690; J1100; J1650; J2250; J2405; J2704; J3010; J7120

== ENCOUNTER 2024-01-16 08:31 | Outpatient (CLI) | payer MEDICARE, SELFPAY ==
[2024-01-16 19:33] LABS: Basophils Absolute Auto 0.1 K/mm3 (0.0-0.1); Basophils Percent Auto 0.7 % (0.2-1.2); Eosinophils Absolute Auto 0.1 K/mm3 (0-0.3); Eosinophils Percent Auto 1.4 % (0-4.4); Hematocrit 47.1 % (42.0-52.0); Hemoglobin 15.4 g/dL (14.0-18.0); Immature Granulocyte Absolute 0.04 K/mm3 (0.00-0.031); Immature Granulocyte Percent A 0.5 % (0-0.5); Lymphocytes Absolute Auto 1.63 K/mm3 (0.9-3.2); Lymphocytes Percent Auto 22.1 % (18.3-44.2); Mean Corpuscular HGB Conc 32.7 g/dl (32-36); Mean Corpuscular Hemoglobin 32.7 pg (26-34); Mean Platelet Volume 9.7 fl (7.4-10.4); Monocytes Absolute Auto 0.5 K/mm3 (0.1-0.6); Monocytes Percent Auto 7.2 % (2.6-8.5); Neutrophils Percent Auto 68.1 % (45.5-73.1); Platelet Count Result 275 k/mm3 (150-375); Red Blood Count 4.71 M/mm3 (4.6-6.20); Red Cell Distribution Width 13.6 % (11.5-14.5); White Blood Count 7.4 K/mm3 (4.5-10.0)
[2024-01-16 20:14] LABS: Alanine Aminotransferase 19 U/L (6-50); Albumin Level 4.7 g/dL (3.5-5.1); Alkaline Phosphatase 91 U/L (38-126); Anion Gap 14 mmol/L (4-12); Aspartate Amino Transferase 28 U/L (17-59); Blood Urea Nitrogen 17 mg/dL (9-20); Calcium 9.6 mg/dL (8.4-10.2); Carbon Dioxide 26 mmol/L (22-30); Chloride 101 mmol/L (98-107); Cholesterol 130 mg/dL (0-200); Estimated Glomerular Filt Rate > 60; Glucose 94 mg/dL (65-110); HDL Direct 45 mg/dL; Potassium 3.8 mmol/L (3.4-5.0); Sodium 141 mmol/L (137-145); Triglycerides 104 mg/dL (<150)
[2024-01-16 20:25] LABS: LDL Cholesterol Direct 60 mg/dL
[2024-01-16 20:45] LABS: Prostate Specific Antigen 0.5 ng/mL (< OR = 4.0)
== END 2024-01-16 08:32 | disposition home or self-care (01) ==
PROVIDERS: PCP Internal Medicine; Visit Provider Internal Medicine
DX: D68.2 Hereditary deficiency of other clotting factors (principal); E78.5 Hyperlipidemia, unspecified; I10 Essential (primary) hypertension; I73.9 Peripheral vascular disease, unspecified; Z79.01 Long term (current) use of anticoagulants; Z86.718 Personal history of other venous thrombosis and embolism; D64.9 Anemia, unspecified; I50.30 Unspecified diastolic (congestive) heart failure; Z12.5 Encounter for screening for malignant neoplasm of prostate
CPT/HCPCS: 36415; 80053; 80061; 82728; 84153; 85025; G0103

== ENCOUNTER 2025-03-16 15:06 | Outpatient (CLI) | payer MEDICARE, SELFPAY ==
--- OUTSIDE RECORDS SUMMARY | 2025-03-16 15:29 | XMS_ITS | Clinical Summary ---
Author Organization [facility] [address] [facility] [address] Address [address] [place] [address] Care Team Providers Care Fence Builder Name Role Phone Jm Alicea DO Primary Care Provider Allergies No known active allergies Medications amLODIPine (NORVASC) 5 mg tablet Take 1 tablet (5 mg total) by mouth daily 5 Active atorvastatin (LIPITOR) 20 mg tablet Take 1 tablet (20 mg total) by mouth nightly 0 Active cholecalciferol 25 mcg (1,000 unit) tablet Take 1 tablet (1,000 Units total) by mouth daily 5 Active rivaroxaban (XARELTO) 20 mg tablet Take 1 tablet (20 mg total) by mouth nightly 3 Active tamsulosin (FLOMAX) 0.4 mg extended release capsule Take 1 capsule (0.4 mg total) by mouth nightly 5 Active inulin-sorbitoL 2 gram tablet,chewable Take 2 tablet/chew tab by mouth daily Active donepeziL (ARICEPT) 5 mg tablet Take 1 tablet (5 mg total) by mouth daily after breakfast Take this medication with food or within 30 minutes after a meal 30 tablet 6 5 Active Active Problems Problem Noted Date Diagnosed Date 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 Peripheral vascular disease 06/24/2014 Overview (08/17/2016): Peripheral vascular disease Factor V Leiden mutation 06/24/2014 Overview (08/17/2016): Factor V Leiden Hypertension 06/24/2014 Overview (08/17/2016): HTN (hypertension) Impaired glucose tolerance 06/24/2014 Overview (08/17/2016): Glucose intolerance (pre-diabetes) Preoperative state 06/24/2014 Overview (08/17/2016): Preoperative cardiovascular examination Chronic venous insufficiency 06/24/2014 Overview (08/17/2016): Chronic venous insufficiency History of deep venous thrombosis 06/24/2014 Overview (08/17/2016): History of DVT (deep vein thrombosis) Hyperlipidemia 06/24/2014 Overview (08/17/2016): Hyperlipidemia History of anticoagulant therapy 06/24/2014 Overview (08/17/2016): Chronic anticoagulation Adiposity 06/24/2014 Overview (08/17/2016): Obesity Surgical History Surgery Date Site/Laterality Comments THROMBECTOMY Left LEG INSERT VENA CAVA FILTER 05/14/2005 - 05/13/2006 INGUINAL HERNIA REPAIR 04/13/2023 - 05/13/2023 Left W/ MESH Medical History Medical History Date Comments Hx Other Medical LLE bypass X 2; Comments: ELU 06/24/2014 - PVD (peripheral vascular disease) HTN (hypertension) Chronic venous insufficiency Hyperlipidemia Factor V Leiden DVT (deep venous thrombosis) Adiposity Dementia (HCC) Acute renal insufficiency Anemia Family History Medical History Relation Name Comments Lung cancer Father Cancer, lung; Lung cancer Other 2 Family history of Cancer, lung; Cause of : Family history of Cancer, lung Other Other 2 No family histo ry of Cardiovascular disease; Breast cancer Sister Cancer, breast ; Relation Name Status Comments Father Other 1 Other 2 Sister Social History Tobacco Use Types Packs/Day Years Used Date Smoking Tobacco: Former Cigarettes Q uit: 06/14/2014 Smokeless Tobacco: Former Chew Tobacco Cessation:Counseling Given: Not Answered Alcohol Use Standard Drinks/Week Comments Yes 0 (1 standard drink = 0.6 oz pur e alcohol) AUDIT-C Answer Date Recorded Q1: How often do you have a drink containing alcohol? Never 09/01/2024 Q2: How many drinks containi ng alcohol do you have on a typical day when you are drinking? Patient does not drink Q3: How often do you have si x or more drinks on one occasion? Never 09/01/2024 Personal Safety Answer Date Recorded Have you ever been in or are you currently in a harmful physical or emotional relationship or is someone making you feel afraid or unsafe? 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 Gender Identity Not on file Sexual Orientation Not on file Last Filed Vital Signs Vital Sign Reading Time Taken Comments Blood Pressure 136/80 11/24/2024 8:42 AM CDT Pulse 65 11/24/2024 8:42 AM CDT Temperature 36.4 C (97.6 F) 09/01/2024 10:30 AM CDT Respiratory Rate 18 09/01/2024 11:00 AM CDT Oxygen Saturation 98% 09/01/2024 11:00 AM CDT Inhaled Oxygen Concentration - - Weight 97.5 kg (215 lb) 11/24/2024 8:42 AM CDT Height 182.9 cm (6') 11/24/2024 8:42 AM CDT Body Mass Index 29.16 11/24/2024 8:42 AM CDT Plan of Treatment Health Maintenance Due Date Last Done Comments Colon Cancer Screening-Colonoscopy 1955 Depression Screening 1955 Hepatitis C Screening 1955 Prostate Cancer Screening-PSA 1955 Hepatitis B Screening 09/14/1973 Pneumococcal vaccine 65+ (1 of 1 - PCV) 09/14/2005 Zoster Vaccine (2 of 2) 08/13/2020 06/18/2020 Well Visit 65+ 09/14/2020 Covid-19 Vaccine (5 - 2024-2 6 season) 2025 03/03/2022, 02/15/2021, 07/16/2020, Additional history exists Influenza Vaccine (#1) 2025 04/12/2023, 2021 Fall Risk Assessment 09/01/2025 09/01/2024 DTaP/Tdap/Td Vaccine (2 - Td or Tdap) 01/12/2030 01/13/2020 Abdominal Aortic Aneurysm (A AA) Screen Completed 06/07/2024 Medical Devices Implanted Type Area Astrochemist Device Identifier Shelf Expiration Date Model / Serial / Lot Ivc Filter IVC Filter N/A: Abdomen Mesh Mesh Groin Insurance [employer] MEDICARE PPO [employer] MEDICARE PPO [employer] CHOICE MEDICARE PPO Advance Directives For more information, please contact: [phone] Documents on File Type Date Recorded Patient Manager Creative Services Expl anation Power of Digital Commentator 09/01/2024 6:37 AM Care Teams Fence Builder Relationship Specialty Start Date End Date Jm Alicea DO PCP - General Internal Medicine 07/24/24
--- OUTSIDE RECORDS SUMMARY | 2025-03-16 15:29 | XMS_ITS | Clinical Summary ---
Author Organization [email or web address] Address [address] [place] [address] Care Team Providers Care Fertilizer Loader Name Role Phone Vignesh Perry MD Primary Care Provider [phone] Source Comments [email or web address],non-owned Affiliates and Associated Physician Practices is amultiple site organization consisting of ambulatory clinics and hospital sitesin [place], [place], [place] and [place]. This disclosure is being madepursuant to the Care Everywhere program and may not contain all information available regarding this patient. Last updated 18.[email or web address] Allergies No known active allergies Medications * Be aware that medications may not be up to date on this document. Alwaysverify current medications with the patient. warfarin (COUMADIN) 5 MG tablet Take 5 mg by mouth once daily Active losartan - hydroCHLOROthiazide (HYZAAR) 50-12.5 MG tablet Take 1 tablet by mouth once daily Active atorvastatin (LIPITOR) 10 MG tablet Take 10 mg by mouth at bedtime Active acetaminophen-codeine (TYLENOL #3) 300-30 MG tablet 0 11/27/19 18 Active ciprofloxacin (CIPRO) 500 MG tablet 0 09/20/19 18 Active ketorolac 0.5% (ACULAR) 0.5 % ophthalmic solution 0 08/14/19 18 Active mupirocin calcium (BACTROBAN) 2 % cream 0 18 Active ofloxacin (OCUFLOX) 0.3 % ophthalmic solution 0 18 Active prednisoLONE acetate (PRED FORTE) 1 % ophthalmic suspension 0 18 Active sulfamethoxazole-trimet hoprim (BACTRIM DS; SEPTRA DS) 800-160 MG tablet 0 10/11/19 18 Active Active Problems No known active problems Family History Medical History Relation Name Comments Asthma Neg Hx CVA Neg Hx Cancer - Breast Neg Hx Cancer - Other Neg Hx Cancer - Skin, Melanoma Neg Hx Cancer - Skin, Non Melanoma Neg Hx Eczema Neg Hx Hemophilia Neg Hx Psoriasis Neg Hx Social History Tobacco Use Types Packs/Day Years Used Date Smoking Tobacco: Every Day Cigarettes Smokeless Tobacco: Never Alcohol Use Standard Drinks/Week Comments Yes 0 (1 standard drink = 0.6 oz pur e alcohol) Sex and Gender Information Value Date Recorded Sex Assigned at Not on file Legal Sex Male 12:32 PM CDT Gender Identity Not on file Sexual Orientation Not on file Last Filed Vital Signs Vital Sign Reading Time Taken Comments Blood Pressure 143/99 12/26/2017 9:27 AM CDT Pulse 74 12/26/2017 9:27 AM CDT Temperature - - Respiratory Rate - - Oxygen Saturation 97% 12/26/2017 9:27 AM CDT Inhaled Oxygen Concentration - - Weight 113.4 kg (250 lb) 12/26/2017 7:09 AM CDT Height 182.9 cm (6') 12/26/2017 7:09 AM CDT Body Mass Index 33.91 12/26/2017 7:09 AM CDT Plan of Treatment Health Maintenance Due Date Last Done Comments COLOGUARD (AGES 45-75) - COL ON CA SCREENING 1955 COLON MONITORING 1955 COLONOSCOPY - COLON CA SCREENING 1955 CT COLONOGRAPHY - COLON CA SCREENING 1955 Colorectal Cancer Screening 1955 FIT - COLON CA SCREENING 1955 FLEX SIG - COLON CA SCREENING 1955 HEPATITIS C SCREENING 09/10/1973 DTAP/TDAP/TD VACCINES (1 - Tdap) 09/14/1974 PNEUMOCOCCAL VACCINE 50+ (1 of 2 - PCV) 09/14/1974 ZOSTER VACCINE (1 of 2) 09/14/2005 SCREENING FOR DIABETES 11/06/2017 AAA SCREENING 09/14/2020 DEPRESSION SCREENING 05/14/2024 COVID-19 VACCINE (2023-2 5 season) 2025 INFLUENZA VACCINE (#1) 2025 Respiratory Syncytial Virus (RSV) Vaccine Pt: or over 60 yrs (1 - 1-dose 75+ series) 09/14/2030 HEPATITIS B VACCINE Aged Out No longe r eligible based on patient's age to complete this topic HIB VACCINE Aged Out No longer eligi ble based on patient's age to complete this topic HPV VACCINE Aged Out No longer eligi ble based on patient's age to complete this topic MENINGOCOCCAL (Group B) VACC INE SHARED DECISION-MAKING Aged Out No longer eligibl e based on patient's age to complete this topic MENINGOCOCCAL GROUPS A/C/Y/W VACCINE Aged Out No longer eligible b ased on patient's age to complete this topic Insurance ANTH HUMAN SELF PAY NO INSURANCE Member Subscriber Plan / Payer (Ef fective for All Dates) Name:Asim Ramy R Member ID:Not on file Relation to Subscriber:Not on file Name:ASIMRAMY Subscriber ID:Not on file (Home) Address: [address] [place] [address] Payer ID:Not on file Group ID:Not on file Type:Self Pay Address: [place], [place] [employer] SELF PAY NO INSURANCE Member Subscriber Plan / Payer (Ef fective for All Dates) Name:Asim Ramy R Member ID:Not on file Relation to Subscriber:Not on file Name:RAMY DAILEY Subscriber ID:Not on file (Home) Address: [address] [place] [address] Payer ID:Not on file Group ID:Not on file Type:Self Pay Address: [place], [place] [employer] SELF PAY NO INSURANCE Member Subscriber Plan / Payer (Ef fective for All Dates) Name:JaylinLevar lewislucille Johnson Member ID:Not on file Relation to Subscriber:Not on file Name:RAMY DAILEY Subscriber ID:Not on file (Home) Address: [id number] [place] [address] [address] [place] [address] Payer ID:Not on file Group ID:Not on file Type:Self Pay Address: [place], [place] Care Teams Fertilizer Loader Relationship Specialty Start Date End Date Vignesh Perry MD [address] [place] [id number] PCP - General 10/15/17
--- OUTSIDE RECORDS SUMMARY | 2025-03-16 15:29 | XMS_ITS | Encounter Summary ---
Author Organization [facility] Address [address] [place] [address] Care Team Providers Care Humidifier Maintenance Worker Name Role Phone Vignesh Perry MD Primary Care Provider [phone] Encounter Details Date Type Department Care Team (Late st Contact Info) Description 09/04/2018 Lab Requisition [facility] Care DermPath Lab [address], [place] [place] [address] Tal Carlos MD [address] [place] [address] Social History Tobacco Use Types Packs/Day Years Used Date Smoking Tobacco: Every Day Cigarettes Smokeless Tobacco: Never Alcohol Use Standard Drinks/Week Comments Yes 0 (1 standard drink = 0.6 oz pur e alcohol) Sex and Gender Information Value Date Recorded Sex Assigned at Not on file Legal Sex Male 12:32 PM CDT Gender Identity Not on file Sexual Orientation Not on file documented as of this encounter Plan of Treatment Not on file documented as of this encounter Procedures Procedure Name Priority Date/Time Associated Diagnosis Comments DERMATOPATHOLOGY Routine 09/03/2018 12:0 0 AM CDT documented in this encounter Results * DERMATOPATHOLOGY (09/03/2018 12:00 AM CDT) Case Report Dermatopathology Report Case: [id number] Authorizing Provider: Tal Carlos MD Collected: 09/03/2018 12:00 AM Pathologist: Moises Henry MD Received: 09/04/2018 11:26 AM Specimen: Skin, dorsal right hand 3:28 PM CDT DERMATOPATHOLOGY LABORATORY Final Diagnosis Specimen A. SKIN, dorsal right hand: HYPERPLASTIC (HYPERTROPHIC) ACTINIC KERATOSIS (L57.0) 3:28 PM CDT DERMATOPATHOLOGY LABORATORY at 1528 CDT Clinical History R/O SCC,BCC,Botello's, HAK 3:28 PM CDT DERMATOPATHOLOGY LABORATORY Gross Description Specimen A: Received is one formalin filled container labeled with the patient's name and designated dorsal right hand. The specimen consists of a shave biopsy measuring [id number] mm. Jar 0. 3:28 PM CDT DERMATOPATHOLOGY LABORATORY Microscopic Description Specimen A. SKIN, dorsal right hand: There is hyperkeratosis alternating with parakeratosis. There is epidermal hyperplasia with disorderly maturation of keratinocytes with nuclear pleomorphism confined to the lower half of the epidermis. 3:28 PM CDT DERMATOPATHOLOGY LABORATORY Disclaimer An external and internal positive and negative controls are appropriate for the histochemical, immunohistochemical and immunofluorescence stain(s) in this case (if any), except where stated explicitly. The performance characteristics of the stain(s) cited in this report were developed and its performance characteristic determined by the Dermatopathology Laboratory at [facility], directed by Dr. Umang Henry. These tests need not be, and therefore are not, approved by the [place] Food and Drug Administration. The tests are used for clinical purposes. Billing Codes Specimen Charges Stain Charges 38302 1 9 3:28 PM CDT DERMATOPATHOLOGY LABORATORY Embedded Images 3:28 PM CDT DERMATOPATHOLOGY LABORATORY Pathology/Cytolog y TISSUE SPECIMEN FROM SKIN / Unknown 09/03/2018 09/04/2018 11:26 AM CDT Tal Carlos MD LAB - PATHOLOGY/CYTOLOGY ORD ERABLES Final Result DERMATOPATHOLOGY LABORATORY [facility] - Department of Dermatology [address], [place] 5th Floor Lab [address] [phone] documented in this encounter Visit Diagnoses Not on filedocumented in this encounter Care Teams Humidifier Maintenance Worker Relationship Specialty Start Date End Date Vignesh Perry MD [address] [place], [place] [id number] PCP - General 10/15/17 documented as of this encounter
--- OUTSIDE RECORDS SUMMARY | 2025-03-16 15:29 | XMS_ITS | Patient Health Record ---
Author Organization [facility] Address [address] [place] [id number] Care Team Providers Care Linotype Operator Name Role Phone None, . Primary Care Provider Yash Rubi Unavailable [phone] Dong AHN, Jesus Unavailable Unavailable Reason For Referral No Information Problems Problem Type SNOMED Code ICD Code Onset Dates Problem Status W/U Status Risk Notes Problem Peripheral angiopathy (645570172) Peripheral angiopathy NOS (443.9) Active confirmed Problem Peripheral venous insufficiency (50191132) Venous (peripheral) insufficiency, unspecified (459.81) Active confirmed Problem Ulcer of lower limb (82273486) Ulcer of lower limb unspecified (707.10) Active confirmed Problem Tobacco use (008699201) Tobacco use disorder (305.1) Active confirmed Problem Skin ulcer of calf (509228552) Ulcer of calf (707.12) Active confirmed Problem Ankle ulcer (569226811) Ulcer of ankle (707.13) Active confirmed Problem Edema (79941428) Edema (782.3) Active confirmed Plan Of Treatment No Information Insurance Providers Payer Name Payer Address Payer Phone Subscriber Number Group Number Insured Name Patient Relationship to Insured Coverage Start Date Coverage End Date [facility] [address] [place] [address] [phone] [id number] Ramy Moreno Self - patient is the insured
--- OUTSIDE RECORDS SUMMARY | 2025-03-16 15:29 | XMS_ITS | Patient Health Record ---
Author Organization [facility] Address [address] [place], [place] [address] Care Team Providers Care Stamping Operator Name Role Phone Bubba Tucker Jr Unavailable [phone] Steven Wan Unavailable Unavailable Reason For Referral No Information Medications Medication SIG (Take, Route, Frequency, Duration) Notes Start Date End Date Status cefTRIAXone Sodium 2 GM once IV 11/11/2014 Not-Taking Keflex 500 MG 1 capsule Orally Fou r times a day; Duration: 10 day(s) Active cefTRIAXone Sodium 2 GM once IV Not-Taking Losartan Potassium-HCTZ Active Warfarin Sodium Acti ve Keflex 500 MG 1 capsule Orally Fou r times a day; Duration: 10 day(s) 11/10/2014 Active Keflex 500 MG 1 capsule Orally Fou r times a day; Duration: 10 day(s) Active Problems Problem Type SNOMED Code ICD Code Onset Dates Problem Status W/U Status Risk Notes Problem Essential hypertension (80401220) Unspecified essential hypertension (401.9) Active confirmed 2 Plan Of Treatment No Information Insurance Providers Payer Name Payer Address Payer Phone Subscriber Number Group Number Insured Name Patient Relationship to Insured Coverage Start Date Coverage End Date [facility] [address] [place], [place] [id number] Ramy Moreno Self - patient is the insured Medical (General) History Medical History History ICD Code CAD Hypertension Venous insufficiency Venous stasis Cellulitis Factor V Leiden Surgical History Surgery Date(Month/Year) wound graft done on left ankle 2007 aneursym removed from left groin 07/2014
--- OUTSIDE RECORDS SUMMARY | 2025-03-16 15:29 | XMS_ITS | Encounter Summary ---
Author Organization [facility] Address [address] [place] [address] Care Team Providers Care Glass Smoother Name Role Phone Vignesh Perry MD Primary Care Provider [phone] Encounter Details Date Type Department Care Team (Late st Contact Info) Description 10/10/2017 Lab Requisition [facility] Care DermPath Lab [address] [facility] [place] [address] Tal Carlos MD [address] [place] [id number] Social History Tobacco Use Types Packs/Day Years Used Date Smoking Tobacco: Never Assessed Sex and Gender Information Value Date Recorded Sex Assigned at Not on file Legal Sex Male 12:32 PM CDT Gender Identity Not on file Sexual Orientation Not on file documented as of this encounter Plan of Treatment Not on file documented as of this encounter Procedures Procedure Name Priority Date/Time Associated Diagnosis Comments DERMATOPATHOLOGY Routine 10/09/2017 12:0 0 AM CDT documented in this encounter Results * DERMATOPATHOLOGY (10/09/2017 12:00 AM CDT) Case Report Dermatopathology Report Case: [id number] Authorizing Provider: Tal Carlos MD Collected: 10/09/2017 12:00 AM Pathologist: Moises Henry MD Received: 10/10/2017 12:45 PM Specimens: A) - Skin, left cheek by ala B) - Skin, right side nose C) - Skin, left triceps 1:40 PM CDT DERMATOPATHOLOGY LABORATORY Amended Report Gross description for specimen B changed from shave to punch. 1:40 PM CDT DERMATOPATHOLOGY LABORATORY Final Diagnosis Specimen A. SKIN, left cheek by ala: BASAL CELL CARCINOMA, NODULAR TYPE (C44.319) PRESENT AT MARGIN Specimen B. SKIN, right side nose: BASAL CELL CARCINOMA, NODULAR TYPE (C44.311) PRESENT AT MARGIN ANGIOFIBROMA (FIBROUS PAPULE) (D36.9) PRESENT AT MARGIN (see microscopic description) Specimen C. SKIN, left triceps: BENIGN VERRUCOUS KERATOSIS, INFLAMED (L82.1) NOT PRESENT AT SAMPLED MARGIN 1:40 PM CDT DERMATOPATHOLOGY LABORATORY Amendment electronically signed by Moises Henry MD on 10/30/2017 at 1340 CDT Amendment electronically signed by Moises Henry MD on 10/16/2017 at 1654 CDT at 1406 CDT Clinical History A-B: R/O BCC. Check margins. C: R/O KA, SCCIS, SCC. Check margins. 1:40 PM CDT DERMATOPATHOLOGY LABORATORY Gross Description Specimen A: Received is one formalin filled container labeled with the patient's name and designated left cheek by daniel. The specimen consists of a shave biopsy measuring [id number]. The margin is inked green. Jar 0. Specimen B: Received is one formalin filled container labeled with the patient's name and designated right side nose. The specimen consists of a punch biopsy (4 pieces) measuring [id number], margin inked green, 5t3b3xy, 6j2w0xc, & 2v5v1cn. Jar 0. Specimen C: Received is one formalin filled container labeled with the patient's name and designated left triceps. The specimen consists of a shave biopsy measuring 08q08j0 mm. The margin is inked green. Jar +. 1:40 PM CDT DERMATOPATHOLOGY LABORATORY Microscopic Description Specimen A. SKIN, left cheek by ala: Within the dermis there are aggregates of basaloid cells with a high nuclear to cytoplasmic ratio and peripheral palisading. This lesion is present at the margin of the specimen. Specimen B. SKIN, right side nose: Multiple pieces of tissue are reviewed and reviewed. Two pieces show that within the dermis there are aggregates of basaloid cells with a high nuclear to cytoplasmic ratio and peripheral palisading. A separate piece of tissue demonstrates dome-shaped lesion contains dilated blood vessels, coarse collagen bundles, and stellate fibroblasts. Both lesions are present at the margin of the specimen. Specimen C. SKIN, left triceps: Sections show hyperkeratosis, papillomatosis, hypergranulosis, and acanthosis. Inflammatory cells are present within the dermis. These histological findings can be seen in a verruca vulgaris or a seborrheic keratosis. This lesion is not present at the sampled margin of the specimen. 8 1:40 PM CDT DERMATOPATHOLOGY LABORATORY Disclaimer An external and internal positive and negative controls are appropriate for the histochemical, immunohistochemical and immunofluorescence stain(s) in this case (if any), except where stated explicitly. The performance characteristics of the stain(s) cited in this report were developed and its performance characteristic determined by the Dermatopathology Laboratory at [facility]. These tests need not be, and therefore are not, approved by the [place] Food and Drug Administration. The tests are used for clinical purposes. Billing Codes Specimen Charges Stain Charges 74527 90969 89697 1 1 1 8 1:40 PM CDT DERMATOPATHOLOGY LABORATORY Embedded Images 8 1:40 PM CDT DERMATOPATHOLOGY LABORATORY Pathology/Cytology TISSUE SPECIMEN FROM SKIN / Unknown 10/09/2017 10/10/2017 12:45 PM CDT Miscellaneous samples (specimen) TISSUE SPECIMEN FROM SKIN / Unknown 10/09/2017 10/10/2017 12:45 PM CDT Miscellaneous samples (specimen) TISSUE SPECIMEN FROM SKIN / Unknown 10/09/2017 10/10/2017 12:45 PM CDT us Tal Carlos MD LAB - PATHOLOGY/CYTOLOGY ORD ERABLES Edited Result - Final DERMATOPATHOLOGY LABORATORY [facility] - Department of Dermatology [address] [facility], 5th Floor Lab [address] [phone] documented in this encounter Visit Diagnoses Not on filedocumented in this encounter Care Teams Glass Smoother Relationship Specialty Start Date End Date Vignesh Perry MD [address] [place], [place] [phone] PCP - General 10/15/17 documented as of this encounter
[2025-03-16 19:15] LABS: Hematocrit 47.0 % (42.0-52.0); Hemoglobin 15.4 g/dL (14.0-18.0); Immature Granulocyte Percent A 0.3 % (0-0.5); Lymphocytes Absolute Auto 1.48 K/mm3 (0.9-3.2); Mean Corpuscular HGB Conc 32.8 g/dl (32-36); Mean Corpuscular Hemoglobin 31.0 pg (26-34); Mean Corpuscular Volume 94.6 fl (80-100); Nucleated Red Blood Cells Absolute Auto 0.000 K/mm3 (0.0-0.012); Nucleated Red Blood Cells Perc 0.0 % (0.0-0.2); Platelet Count Result 239 k/mm3 (150-375); Red Blood Count 4.97 M/mm3 (4.6-6.20); White Blood Count 6.6 K/mm3 (4.5-10.0)
[2025-03-16 19:24] LABS: Alanine Aminotransferase 22 U/L (6-50); Albumin Level 4.8 g/dL (3.5-5.1); Alkaline Phosphatase 79 U/L (38-126); Anion Gap 10 mmol/L (4-12); Aspartate Amino Transferase 35 U/L (17-59); Bilirubin,Total 0.9 mg/dL (0.2-1.3); Blood Urea Nitrogen 17 mg/dL (9-20); Calcium 9.6 mg/dL (8.4-10.2); Carbon Dioxide 25 mmol/L (22-30); Chloride 102 mmol/L (98-107); Cholesterol 141 mg/dL (0-200); Estimated Glomerular Filt Rate 54; Glucose 90 mg/dL (65-110); HDL Direct 62 mg/dL; Potassium 4.0 mmol/L (3.4-5.0); Sodium 137 mmol/L (137-145); Total Protein 8.3 g/dL (6.3-8.2); Triglycerides 111 mg/dL (<150)
[2025-03-16 19:59] LABS: Prostate Specific Antigen 0.6 ng/mL (< OR = 4.0)
== END 2025-03-16 15:07 | disposition home or self-care (01) ==
LOC: ANHGOSHLAB 15:07
PROVIDERS: PCP Internal Medicine; Visit Provider Internal Medicine
DX: D64.9 Anemia, unspecified (principal); Z12.5 Encounter for screening for malignant neoplasm of prostate; D68.2 Hereditary deficiency of other clotting factors; E55.9 Vitamin D deficiency, unspecified; I11.0 Hypertensive heart disease with heart failure
CPT/HCPCS: 36415; 80053; 80061; 82306; 84153; 85025; G0103